=== PATIENT | female | born 1955 | race Caucasian/White ===

== ENCOUNTER → 2017-07-06 | Outpatient (CLI) | payer OTHER, BC ==
[~2017-07-06] MED LIST: ALBUAER2 INH; ASPEC325 PO; CLB200 PO; CLX20 PO; LISI-461 PO; LRT5 PO; PRCUNK PO; SIMV40TA2 PO; SNG10 PO; [UNRECOGNIZED DRUG - CODE] PO
--- NOTE | 2017-07-06 14:47 | DIAGNOSTIC IMAGING REPORT ---
R FOOT MIN 3 VIEWS ROUTINE HISTORY: 61 years-old Female R FOOT PAIN acute right foot pain without reported trauma COMPARISON: None available TECHNIQUE: 3 views of the right foot FINDINGS: Mild degenerative changes are seen within the first MTP joint and also within the hallux sesamoid articulations with the first metatarsal head. Type I accessory navicular. No acute fracture or subluxation. Mild spurring along the plantar aspect of the calcaneus. Mild dorsal spurring of the midfoot. No radiopaque foreign body. Mild cortical thickening of the distal fibula suggests remote fracture. IMPRESSION: 1. Mild degenerative changes about acute fracture or subluxation. 2. Suggested remote fracture of the distal fibula. The above report was generated using voice recognition software. It may contain grammatical, syntax or spelling errors. Electronically signed by: Theodore Hernandez M.D. 07/06/2017 2:46 PM Dictated Date/Time: 07/06/2017 2:44 PM
== END | disposition home or self-care (01) ==
LOC: C.RAD1850 14:25
PROVIDERS: ATTEND Nurse Practitioner Adult Health
DX: M79.671 Pain in right foot (principal)

== ENCOUNTER → 2017-09-23 | Outpatient (CLI) | payer OTHER ==
[2017-09-23 13:16] LABS: ALT/SGPT 30 U/L (12-78); BLOOD UREA NITROGEN 16 mg/dl (7-18); CARBON DIOXIDE 27 mmol/L (21-32); CREATININE 0.77 mg/dl (0.60-1.20); GLUCOSE 125 mg/dl (70-99); POTASSIUM 3.9 mmol/L (3.5-5.1); SODIUM 140 mmol/L (136-145)
[2017-09-23 13:27] LABS: CHOLESTEROL 140 mg/dl (0-200); LDL CHOLESTEROL CALCULATED 65 mg/dl
== END | disposition home or self-care (01) ==
LOC: C.LABMFLN 07:08
PROVIDERS: ATTEND Family Medicine
DX: E78.5 Hyperlipidemia, unspecified (principal); I10 Essential (primary) hypertension; E03.9 Hypothyroidism, unspecified

== ENCOUNTER → 2017-09-28 | Outpatient (CLI) | payer OTHER ==
--- NOTE | 2017-09-28 10:09 | DIAGNOSTIC IMAGING REPORT ---
CAROTID ARTERY ULTRASOUND CLINICAL HISTORY: Asymptomatic carotid artery narrowing without infarction. COMPARISON STUDY: None. TECHNIQUE: Real-time, grayscale, and color Doppler sonography of the carotid and vertebral arteries was performed. Images were viewed in the transverse and longitudinal planes. FINDINGS: There is mild atherosclerotic plaque. Velocity measurements are listed below. COMMON CAROTID PEAK SYSTOLIC VELOCITY (CM/S): RIGHT 94 LEFT 117 ICA PEAK SYSTOLIC VELOCITY (CM/S): RIGHT 83 LEFT 89 Systolic ratios between the internal to common carotid arteries are normal. Antegrade flow is seen in the vertebral arteries. The external carotid arteries are patent. Blood pressure in the right arm measured 153/69. Blood pressure in the left arm measured 147/64. IMPRESSION: No evidence of a hemodynamically significant stenosis. Electronically signed by: Cali Dumont M.D. 09/28/2017 10:08 AM Dictated Date/Time: 09/28/2017 10:06 AM
== END | disposition home or self-care (01) ==
LOC: C.ULTR 09:33
PROVIDERS: ATTEND Family Medicine
DX: I65.29 Occlusion and stenosis of unspecified carotid artery (principal)

== ENCOUNTER 2020-01-12 05:37 | Inpatient (IN) ==
--- NOTE | 2019-10-11 13:27 | Anesthesiology Consultation ---
Date of Service October 11, 2019 Assessment & Plan (1) Encounter for pre-operative examination: Chart Review Chart Review: Pending: Refer to Additional Notes / Consult section (PCP clearance ) and Patient NOT seen in Pre Admission Testing - Check BSG AM DOS Awaiting surgeon ordered PCP clearance Pt was a rescheduled surgery History Surgery Operation Date: 11/29/19 10:15 Proposed Procedures p Total Hip Arthroplasty Uncemt Anterior - Neville Anderson, Height/Weight Height: 5 ft 6 in Weight: 70 kg Allergies Allergy/AdvReac Type Severity Reaction Status Date / Time sertraline Allergy Unknown Hives Verified 10/11/19 14:39 Corticosteroids AdvReac Mild STEROID Verified 10/11/19 14:39 (Glucocorticoids) INJECTIONS-NAUSEA,FLUSHING,HIVES Medications Home Medications Medication Instructions Recorded Confirmed Last Taken terbinafine HCl 250 mg tablet 250 mg PO DAILY #30 tab 04/06/19 10/11/19 Unknown fluticasone propionate 45 2 puffs INH BID #12 gm 04/19/19 10/11/19 Unknown mcg-salmeterol 21 mcg/actuation HFA inhaler nitrofurantoin 100 mg PO BID #14 cap 04/19/19 10/11/19 Unknown monohydrate/macrocrystals 100 mg capsule levetiracetam 250 mg tablet 250 mg PO BID #180 tab 05/02/19 10/11/19 Unknown levothyroxine 50 mcg tablet See Rx Instructions .ROUTE 05/10/19 10/11/19 Unknown .COMPLEX #30 tablet zolpidem 10 mg tablet 10 mg PO HS PRN #30 tab 07/25/19 10/11/19 Unknown amoxicillin 2,000 mg PO DAILY PRN 09/23/19 10/11/19 Unknown aspirin 81 mg PO QAM 09/23/19 10/11/19 Unknown celecoxib [Celebrex] 50 mg PO QAM 09/23/19 10/11/19 Unknown duloxetine 30 mg PO QPM 09/23/19 10/11/19 Unknown losartan 100 mg PO QAM 09/23/19 10/11/19 Unknown metformin 500 mg PO QAM 09/23/19 10/11/19 Unknown montelukast 10 mg PO QAM 09/23/19 10/11/19 Unknown multivitamin [Daily Multi-Vitamin] 1 tab PO QAM 09/23/19 10/11/19 Unknown cyclobenzaprine 10 mg PO HS 09/27/19 10/11/19 Unknown simvastatin 40 mg PO QPM 09/27/19 10/11/19 Unknown hydrocodone 5 mg-acetaminophen 325 1 tab PO BID PRN #60 tab 10/05/19 10/11/19 Unknown mg tablet albuterol sulfate 90 mcg/actuation See Rx Instructions INH Q6H PRN 10/11/19 10/11/19 Unknown aerosol inhaler #18 gm prednisone 10 mg tablet 10 mg PO DAILY #20 tab 10/11/19 10/11/19 Unknown Past Medical History Medical History Anxiety Asthma Only using BID inhaler as PRN Degenerative disc disease Depression Hearing deficit Hereditary spherocytosis s/p splenectomy (+brigid and appy) History of seizure 03/2016. Single episode, felt 2/2 dehydration. History of shingles Hyperlipidemia Hypertension Hypothyroid Osteoarthritis Prediabetes Sleep apnea Not currently using CPAP Past Family History Family History Sister Family history of diabetes mellitus Past Surgical History Surgical History History of colonoscopy History of tonsillectomy and adenoidectomy History of total right hip replacement Hx of splenectomy ALSO - BRIGID AND APPY AT SAME TIME DUE TO HEREDITARY SPHEROCYTOSIS Hx of tubal ligation Social History Smoking Status: Never smoker Hx Alcohol Use: Yes Alcohol type: wine alcohol intake frequency: a few times a month Hx Substance Use: No Testing Laboratory Results Laboratory Tests 09/28/19 09/28/19 09/28/19 11:17 11:17 11:17 WBC 8.99 Hgb 13.2 Hct 39.5 Plt Count 453 H PT 11.1 INR 1.1 APTT 29.6 Sodium 139 Potassium 4.0 Chloride 106 Carbon Dioxide 28 BUN 24 H Creatinine 0.90 Glucose 121 H Hemoglobin A1c 09/28/19 11:17 WBC Hgb Hct Plt Count PT INR APTT Sodium Potassium Chloride Carbon Dioxide BUN Creatinine Glucose Hemoglobin A1c 5.9 H Electrocardiogram Date: 09/28/19 Findings: + NSR @ (68bpm) Cannot rule out anterior infarct (cited on or before 06/20/10). Compared to EKG of 06/20/10, aberrant conduction is no longer present. Otherwise no significant change. (at PAT appt on 09/28/19 pt had good functional status at Class II Metabolic Activity without symptoms( Chest X-Ray Date: 09/28/19 Findings: + cardiomegaly
--- NOTE | 2020-01-08 11:23 | History & Physical Report ---
Date of Service January 12, 2020 Assessment & Plan (1) Degenerative joint disease of left hip: I have indicated the patient for left anterior total hip replacement. The risks, benefits and complications of surgery were explained to the patient which include but not limited to infection, acute blood loss, DVT/PE, injury to nerves, vessels, bone, soft tissue, arthrofibrosis, chronic pain, failure of the prosthesis, hip dislocation, leg length discrepancy, need for additional surgery, cardiac and pulmonary events and . The patient wished to proceed with surgery and informed consent was obtained at this time. We will plan for ASA BID post-operatively for DVT prophylaxis. Upon discharge the patient will be discharged home with home health services. Appropriate clearances by PCP were obtained. History of Present Illness Chief Complaint: Left hip pain/djd Primary Care Provider: Nba Sheldon MD The patient is a 64 year old female who presents with complaints of severe left hip pain and DJD. The patient has failed outpatient conservative treatments to this point which included NSAIDs, PT, home exercise/walking program. Patient unable to have corticosteroid injection secondary to allergy. The patient's pain and limited function have progressed to the point where they severely hinder their activities of daily living and they no longer tolerate exercise programs. They are requesting to proceed with total hip replacement surgery. Allergies Allergy/AdvReac Type Severity Reaction Status Date / Time sertraline Allergy Unknown Hives Verified 01/12/20 05:47 Corticosteroids AdvReac Mild STEROID Verified 01/12/20 05:47 (Glucocorticoids) INJECTIONS-NAUSEA,FLUSHING,HIVES Home Medications Home Medications Medication Instructions Recorded Confirmed Type levetiracetam 250 mg tablet 250 mg PO BID #180 tab 05/02/19 01/12/20 Rx amoxicillin 2,000 mg PO DAILY PRN 09/23/19 01/12/20 History aspirin 81 mg PO QAM 09/23/19 01/12/20 History celecoxib [Celebrex] 200 mg PO BID 09/23/19 01/12/20 History duloxetine 30 mg PO QPM 09/23/19 01/12/20 History metformin 500 mg PO QAM 09/23/19 01/12/20 History multivitamin [Daily Multi-Vitamin] 2 tab PO QAM 09/23/19 01/12/20 History cyclobenzaprine 10 mg PO HS PRN 09/27/19 01/12/20 History simvastatin 40 mg PO QPM 09/27/19 01/12/20 History albuterol sulfate 90 mcg/actuation See Rx Instructions INH Q6H PRN 10/31/1912/19 Rx aerosol inhaler #18 gm levothyroxine 50 mcg tablet See Rx Instructions .ROUTE 11/09/19 01/12/20 Rx .COMPLEX #30 tablet montelukast 10 mg tablet 10 mg PO QAM #90 tab 12/13/19 01/12/20 Rx zolpidem 10 mg tablet 10 mg PO HS PRN #30 tab 12/21/19 01/12/20 Rx hydrocodone 5 mg-acetaminophen 325 1 tab PO BID PRN #60 tab 12/23/19 01/12/20 Rx mg tablet losartan 100 mg PO QAM 01/10/20 01/12/20 History fluticasone propion-salmeterol 2 puffs INH BID PRN 01/12/20 01/10/20 History [Advair HFA] Past Med/Surg History Medical History Anxiety Asthma Only using BID inhaler as PRN Degenerative disc disease Depression Hearing deficit Hereditary spherocytosis s/p splenectomy (+brigid and appy) History of seizure 03/2016. Single episode, felt 2/2 dehydration. History of shingles Hyperlipidemia Hypertension Hypothyroid Osteoarthritis Prediabetes Sleep apnea Not currently using CPAP Surgical History History of colonoscopy History of tonsillectomy and adenoidectomy History of total right hip replacement Hx of splenectomy ALSO - BRIGID AND APPY AT SAME TIME DUE TO HEREDITARY SPHEROCYTOSIS Hx of tubal ligation Family History Sister Family history of diabetes mellitus Social History Preferred Language: Croatian Communication Ability: Effective [employer] Officer Required: No Beliefs That Will Affect Care: None Current Living Situation: Spouse Other Information That Helps Us Care for You: No Feels Safe at Home: Yes Safety Concerns: Feels Safe At This Time Smoking Status: Never smoker Do You Dip or Chew Tobacco: No ; Second Hand Exposure: Yes (MOTHER SMOKED) ; Hx Alcohol Use: Yes Alcohol type: wine Hx Substance Use: No Review of Systems Review of Systems: All systems reviewed & are unremarkable except as noted in HPI & below Constitutional: as per Subjective / HPI Physical Exam Physical Exam: LLE NVSI +EHL/FHL/TA/GS SILT grossly, +2 DP pulse, compartments soft NT, dressing cdi. Constitutional: WD/WN, vitals as above Results & Data Results & Data ([place]) Diagnostic Findings Multiple views of the hip demonstrates severe DJD with complete loss of the joint space. +osteophytes, +sclerosis, +subchondral cysts.
[2020-01-12] MEDS ORDERED: ACETAMINOPHEN 500 MG TAB PO SCH (06:00)
[2020-01-12] MEDS ORDERED: ROPIVACAINE 0.5% HCL/PF 150 MG, BUPIVACAINE 0.5% MPF 30 ML, EPINEPHrine 30MG/30ML (OR U... INSTIL SCH (06:00)
[2020-01-12] MEDS ORDERED: dexAMETHasone 4 MG TAB PO SCH (06:00)
[2020-01-12] MEDS ORDERED: FAMOTIDINE 20 MG TAB PO SCH (06:00)
[2020-01-12] MEDS ORDERED: LR 500ML BOLUS, THEN 15ML/HR IV SCH (06:00)
[2020-01-12] MEDS ORDERED: GABAPENTIN 300 MG CAP PO SCH (06:00)
[2020-01-12] MEDS ORDERED: METOCLOPRAMIDE HCL 10 MG TABLET PO SCH (06:00)
[2020-01-12] MEDS ORDERED: CeleBREX 200 MG CAP PO SCH (06:00)
[2020-01-12] MEDS ORDERED: CEFAZOLIN 1000MG 1,000 MG/7.5 ML SYR IV SCH (06:00)
[2020-01-12] MEDS ORDERED: TRANEXAMIC ACID / 0.7% NACL 1,000 MG/100 ML BAG IV SCH ×2 (06:00)
[2020-01-12] MEDS ORDERED: BUPIVACAINE 0.5 % 5 MG/1 ML PF 10ML VIAL ONE (06:22)
[2020-01-12] MEDS ORDERED: ORTHO JOINT ANESTHETIC ONE (07:04)
[2020-01-12] MEDS ORDERED: BACITRACIN INJ 50,000 UNIT VIAL ONE (07:04)
[2020-01-12] MEDS ORDERED: LABETALOL HCL IV 5 MG/ML 20ML IV PRN (07:10)
[2020-01-12] MEDS ORDERED: MIDAZOLAM HCL 1 MG/ML 2ML VIAL ONE ×2 (07:10→07:23)
[2020-01-12] MEDS ORDERED: fentaNYL citrate 100 MCG/2 ML VIAL IV PRN (07:10)
[2020-01-12] MEDS ORDERED: ATROPINE SULFATE 0.1 MG/ML 10ML SYR IV PRN (07:10)
[2020-01-12] MEDS ORDERED: ePHEDrine sulfate 50 MG/ML AMP IV PRN (07:10)
[2020-01-12] MEDS ORDERED: PROPOFOL IV EMULSION 10 MG/ML 20 ML VIAL IV ONE ×2 (07:10→08:53)
[2020-01-12] MEDS ORDERED: PHENYLEPHRINE 100MCG/ML 5ML SYR IV PRN (07:10)
[2020-01-12] MEDS ORDERED: HYDROmorphone INJ 1 MG/ML SYRINGE IV PRN (07:10)
[2020-01-12] MEDS ORDERED: ONDANSETRON INJ 2 MG/ML 2 ML VIAL IV PRN ×2 (07:10→10:28)
[2020-01-12] MEDS ORDERED: LIDOCAINE HCL 2% 2 ML VIAL/AMP(20MG/ML) INFIL ONE (07:10)
--- NOTE | 2020-01-12 07:14 | History & Physical Bridge Note ---
Date of Service January 12, 2020 History & Physical Bridge Note I have examined the patient, reviewed the History & Physical and in the interval since the performance of the History & Physical I have noted the following changes of clinical significance: no changes noted
[2020-01-12] MEDS ORDERED: ONDANSETRON INJ 2 MG/ML 2 ML VIAL ONE (07:46)
--- NOTE | 2020-01-12 09:14 | Post Operative Brief Note ---
Immediate Post Op Note v1 Date of Surgery January 12, 2020 Pre & Post Diagnosis Operation Date: 11/29/19 09:45 <No data on this case meets the specified criteria> Operation Date: 01/12/20 07:30 Pre-Op Diagnosis: Left Hip Osteoarthritis Post-Op Diagnosis: Left Hip Osteoarthritis I identified the patient and participated in the time-out.: Yes Procedure Operation Date: 11/29/19 09:45 <No data on this case meets the specified criteria> Operation Date: 01/12/20 07:30 Actual Procedures p Left Anterior Total Hip Arthroplasty(Left) - Neville Anderson DO Surgeon Neville Anderson DO Wool Puller Aime lopez Estimated Blood Loss 185 Findings Consistent with Post-Op Diagnosis Fluids 1200 cc LR Specimens Femoral head Anesthesia Type Spinal MAC Complications none Disposition Disposition: Recovery Room Overlapping Procedure I was present for: the critical portions of procedure. I was immediately available: during the entire case. Back up surgeon: was not required during procedure.
--- NOTE | 2020-01-12 09:16 | Operative Report ---
Post Operative Report Pre & Post Diagnosis Operation Date: 11/29/19 09:45 <No data on this case meets the specified criteria> Operation Date: 01/12/20 07:30 Pre-Op Diagnosis: Left Hip Osteoarthritis Post-Op Diagnosis: Left Hip Osteoarthritis I identified the patient and participated in the time-out.: Yes Procedure Operation Date: 11/29/19 09:45 <No data on this case meets the specified criteria> Operation Date: 01/12/20 07:30 Actual Procedures p Left Anterior Total Hip Arthroplasty(Left) - Neville Anderson DO Surgeon Neville Anderson, Laborer [employer] Aime lopez Estimated Blood Loss 185 Findings Consistent with Post-Op Diagnosis Fluids 1200 cc LR Specimens Femoral head Anesthesia Type Spinal MAC Complications none Disposition Disposition: Recovery Room Indications The patient is a 58-year-old female who presents with severe progressive left hip DJD who has failed outpatient conservative treatments. I indicated the pa tient for a anterior total hip replacement and the risks and benefits were explained in detail which include but not limited to infection, bleeding, blood clot, damage to surrounding bone, nerves, vessels, soft tissue, hip dislocation, failure of the prosthesis, leg length discrepancy, need for additional surgery and . The patient agreed to proceed with replacement of the hip and informed consent was obtained. Appropriate clearances were obtained. Description of Procedure COMPONENTS USED: [employer] hip system: Acetabulum size 50, femur size 3 high offset, femoral head 32+0, liner 5032, acetabular screw 25 mm x 1. DESCRIPTION OF PROCEDURE: Following satisfactory spinal anesthesia, the patient was placed supine on the OR table. The right leg was placed in the well leg contreras and the left leg in the traction device. The left leg was prepared with ChloraPrep and draped sterilely. A surgical timeout was performed, patient identified and site mariajose verified. Appropriate antibiotics were given. A standard anterior approach in the interval between the sartorius and tensor muscles was performed. Dissection was carried down through subcutaneous tissues. Electrocautery was utilized for hemostasis. Circumflex femoral vessels were identified, tied and ligated. The anterior capsular fat pad was removed and the capsulotomy was performed revealing the arthritic femoral neck and head. A femoral neck cut was made with reciprocating saw and the bone fragments removed. The acetabular self-retraining retractor was placed. Acetabular reaming was completed under fluoroscopic guidance, a 50 shell was impacted into an anatomic position and secured with a dome screw. Local anesthetic was placed and following irrigation, the polyethylene liner was placed. The femur was placed into position of external rotation, extension and adduction. Femoral canal was prepared up to the size 3 high offset. Trial reduction with a 32+0 neck length head showed good soft tissue tension, leg lengths restored, and good fit and fill of the proximal canal using fluoroscopic landmarks. The hip was dislocated. The trial component was removed. The final implant was placed. The hip was irrigated with sterile saline solution and reduced. A Betadine soak was performed. After 3 minutes, the hip was once more irrigated with copious sterile saline solution with bacitracin. Cielo-incisional soft tissue was injected utilizing [place] [employer] which includes a combination of Ropivicaine 0.5% 150mg, Bupivicaine 0.5%/Epinephrine 1:200,000 30ml, Toradol 30mg, Dexamethasone 4mg, Ketamine 10mg, Clonidine 100mcg and NSS 30ml solution. The capsule was then closed with 1-0 Vicryl interrupted figure of eight sutures. The fascia was closed with a running suture of #1 Vicryl, the subcutaneous tissues with 2-0 Vicryl and the skin with a running subcuticular stitch of 3-0 V-Loc. Dermabond prineo and a dry dressing were applied. The patient tolerated the procedure well and was transported to PACU in stable condition. Due to the complex nature of the procedure, the entire surgery was performed with the operational assistance of Aime lopez PA-C. The editorial assistant, under direct supervision, was involved in the actual performance of all aspects of the surgical procedure including patient positioning, hemostasis, tissue retraction, instrument management and wound closure. I attest to the content of the Intraoperative Record and any orders documented therein. Any exceptions are noted below.
--- NOTE | 2020-01-12 10:08 | XRay Report ---
SINGLE VIEW PELVIS; SINGLE VIEW LEFT HIP CLINICAL HISTORY: Postoperative examination. FINDINGS: An AP portable view of the hips and pelvis with a crosstable lateral portable view of the l eft hip are compared to study dated 11/18/2010. A bipolar left hip arthroplasty is in near-anatomic ali gnment. A single cortical lag screw transfixes the acetabular cup. No acute fracture is identified. T here are expected postoperative changes overlying the left hip including subcutaneous gas and soft t issue swelling. A right hip arthroplasty is also in place. IMPRESSION: Expected postoperative findings status post left hip arthroplasty. No acute fracture is s een. ACT 112: Negative or not required by law. Electronically signed by: Ludwin Calvillo M.D. 01/12/2020 10:06 AM
--- NOTE | 2020-01-12 10:09 | Anesthesiology Progress Note ---
Date of Service January 12, 2020 Anesthesia Post Procedure Vital Signs Vital Signs: Temp Pulse Pulse Resp BP BP Pulse Ox 01/12/20 10:05 36.4 C L 67 16 131/64 98 01/12/20 09:55 68 16 134/65 98 01/12/20 09:45 65 16 128/57 L 98 01/12/20 09:36 36.2 C L 67 16 131/71 95 01/12/20 06:55 78 20 139/61 98 01/12/20 05:57 37.1 C 88 18 154/88 H 95 Transfer of Care Handoff Completed per policy Notes Mental Status: alert / awake / arousable Patient Amnestic to Procedure: Yes Nausea / Vomiting: adequately controlled Pain: adequately controlled Airway Patency, RR, SpO2: stable & adequate BP & HR: stable & adequate Hydration State: stable & adequate Neuraxial Anesthesia: was administered and sensory block is resolving Anesthetic Complications: no major complications apparent and Pt Satisfied with anesthetic care
--- NOTE | 2020-01-12 10:15 | Orthopedic Progress Note ---
Date of Service January 12, 2020 Assessment & Plan (1) Degenerative joint disease of left hip: Status post left anterior total hip arthroplasty Ancef x24 DVT prophylaxis: SCDs, teds, 81 mg ASA twice daily Weight-bear as tolerates left lower extremity PT/OT Postoperative x-ray demonstrates a well aligned well fixed total hip prosthesis without evidence of fracture or dislocation A.m. lab DC planning Subjective Post Operative Progress Note Patient seen sitting up in bed, comfortable, denies complaints, pain well controlled, no acute issues. Review of Systems Review of Systems: All systems reviewed & are unremarkable except as noted in HPI & below Constitutional: as per Subjective / HPI Physical Exam Physical Exam: LLE NVSI +EHL/FHL/TA/GS SILT grossly, +2 DP pulse, compartments soft NT, dressing cdi. Constitutional: WD/WN, vitals as above Results & Data ([facility]) Vital Signs (Past 12 Hours) Vital Signs Temp Pulse Pulse Resp BP BP Pulse Ox 01/12/20 10:05 36.4 C L 67 16 131/64 98 01/12/20 09:55 68 16 134/65 98 01/12/20 09:45 65 16 128/57 L 98 01/12/20 09:36 36.2 C L 67 16 131/71 95 01/12/20 06:55 78 20 139/61 98 01/12/20 05:57 37.1 C 88 18 154/88 H 95
[2020-01-12] MEDS ORDERED: NALOXONE HCL 0.4 MG/1 ML VIAL/CARP IV PRN (10:28)
[2020-01-12] MEDS ORDERED: ALBUTEROL HFA 8 GM INHALER INH PRN (10:28)
[2020-01-12] MEDS ORDERED: MAGNESIUM HYDROXIDE SUSP 30 ML UDC PO PRN (10:28)
[2020-01-12] MEDS ORDERED: bisacodyL 10 MG SUPP PR PRN (10:28)
[2020-01-12] MEDS ORDERED: METOCLOPRAMIDE HCL INJ 5 MG/ML 2 ML VIAL IV PRN (10:28)
[2020-01-12] MEDS ORDERED: HYDROmorphone INJ 0.5 MG/0.5 ML SYR IV PRN (10:28)
[2020-01-12] MEDS: SODIUM CHLORIDE 0.9% 1000ML 1,000 ML IV SCH ×2 (10:37→19:39)
[2020-01-12] MEDS ORDERED: FLUTICASONE/VILANTEROL 100/25MCG 14 PUFFS/INHALER INH PRN (10:55)
[2020-01-12] MEDS ORDERED: PHARMACY GLYCEMIC MGMT CONSULT PRN (10:57)
[2020-01-12] MEDS ORDERED: GLUCOSE 10 TABS/TUBE PO PRN (11:15)
[2020-01-12] MEDS ORDERED: DEXTROSE 50% 50 ML SYRINGE IV PRN (11:15)
[2020-01-12] MEDS ORDERED: GLUCAGON FOR INJ 1 MG VIAL IM PRN (11:15)
[2020-01-12] MEDS ORDERED: CARBOHYDRATES FOR HYPOGLYCEMIA PO PRN (11:15)
[2020-01-12] MEDS ORDERED: GLUCOSE 40% GEL 15 GM TUBE PO PRN (11:15)
--- NOTE | 2020-01-12 11:15 | Pharmacy Report ---
Glycemic Control Consultation - Date of Service January 12, 2020 - Scope Scope: Glycemic Pharmacist consulted for glycemic control and to write orders per [facility] inpatient glycemic control protocol. - Objective Weight: 71.7 kg Accuchecks BSG (last 24hrs): 01/12/20 06:15 POC Glucose 127 H - Recent Pertinent Medications Outpatient Anti-diabetic Regimen: * Metformin 500 mg PO QAM * A1c = 6.2% from 12/29/19 Risk Factors for Insulin Resistance: * Steroids: Dexamethasone 8 mg PO x 1 pre-op * Recent Surgery: POD #0 s/p L DERIK * Diet: T2DM - Assessment & Plan Assessment & Plan: ASSESSMENT: * 64 yo F who is POD #0 s/p L DERIK. Pharmacy consulted for glycemic management. * PMHx significant for pre-diabetes on once daily metformin. A1c shows good outpatient control. * Pre-op BSG was 127 mg/dL * Post-op BSG was...... will start home metformin dose tomorrow morning as patient has no contraindications. Starting Novolog with CF/CR based on weight and stress of ~2. * Since patient received a pre-op dose of dexamethasone, will give a 0.2 unit/kg dose of NPH to account for steroid-induced hyperglycemia today. Patient is ordered a T2DM diet and steroids will mostly effect post-prandial BSGs. No further steroids ordered that I can see. PLAN FOR INPATIENT GLYCEMIC CONTROL: * Oral agents * Metformin 500 mg PO QAM - starting 01/12 * Basal insulin * NPH 15 units SQ x 1 * Bolus insulin * NovoLog per scale ACHS or Q6hrs while NPO * Goal Range: Low 110 mg/dL - High 140 mg/dL * Correction Factor: 30 mg/dL/unit * Nutritional / Prandial insulin per carb ratio of 1 unit per 10 grams CHO consumed * Please note that the plan above was derived based on current level of insulin resistance and hospital stress. These recommendations are appropriate for inpatient admission only. Plan of care upon discharge will need to be reassessed to avoid potential outpatient hypo/hyperglycemia. Thank you.
--- NOTE | 2020-01-12 11:19 | Fluoroscopy Report ---
FL hip LT 1V CLINICAL HISTORY: LT ANTERIOR TOTAL HIP COMPARISON STUDY: None. FLUOROSCOPY TIME: 33 seconds. FINDINGS: 3 fluoroscopic spot images demonstrate a left total arthroplasty. The hardware is intact. N o fracture or dislocation. Evidence for prior right total arthroplasty. IMPRESSION: Fluoroscopy provided for left total arthroplasty. ACT 112: Negative or not required by law. Electronically signed by: Kenneth Muhammad M.D. 01/12/2020 11:18 AM
[2020-01-12] MEDS ORDERED: NovoLIN-N (NPH) PER UNIT CHARGE SQ ONE (11:30)
[2020-01-12] MEDS: KETOROLAC TROMETHAMINE 15 MG/ML VIAL IV SCH ×3 (13:15→23:35)
[2020-01-12] MEDS: INSULIN ASPART 100 UNITS/ML 3 ML PEN SC SCH ×2 (13:17→21:56)
[2020-01-12] MEDS: ACETAMINOPHEN 500 MG TAB PO SCH ×2 (13:37→21:55)
[2020-01-12] MEDS ORDERED: INSULIN ASPART 100 UNITS/ML 3 ML PEN SC ONE ×2 (16:15→16:30)
[2020-01-12] MEDS: CEFAZOLIN 2000MG 2,000 MG/15 ML SYR IV SCH ×2 (16:45→23:35)
[2020-01-12] MEDS: DOCUSATE SODIUM 100 MG CAP PO SCH (19:41)
[2020-01-12] MEDS: levETIRAcetam 250 MG TAB PO SCH (19:43)
[2020-01-12] MEDS: OXYCODONE HCL IR 5 MG TAB (IMMEDIATE RELEASE) PO PRN (19:54)
[2020-01-12] MEDS ORDERED: SENNA 8.6 MG TAB PO SCH (21:00)
[2020-01-12] MEDS ORDERED: DULOXETINE HCL 30 MG CAP PO SCH (21:00)
[2020-01-12] MEDS ORDERED: SIMVASTATIN 40 MG TAB PO SCH (21:00)
[2020-01-13 05:35] LABS: Basophils # (auto) 0.01 K/uL (0-0.2); Hemoglobin 10.9 g/dL (12.0-16.0); Immature Granulocytes # (auto) 0.11 K/uL (0.00-0.02); Immature Granulocytes % (auto) 0.5 %; Lymphocytes # (auto) 2.25 K/uL (1.2-3.4); Lymphocytes % (auto) 10.3 %; Mean Corpuscular Hemoglobin 30.1 pg (25-34); Mean Corpuscular Volume 91.2 fL (80-100); Mean Platelet Volume 9.6 fL (7.4-10.4); Monocytes # (auto) 1.57 K/uL (0.11-0.59); Monocytes % (auto) 7.2 %; Neutrophils # (auto) 17.87 K/uL (1.4-6.5); Nucleated RBC # (auto) 0.04 K/uL (0-0); Nucleated RBC % (auto) 0.2 %; Platelet Count 408 K/uL (130-400); RDW Coefficient of Variation 13.4 % (11.5-14.5); RDW Standard Deviation 44.6 fL (36.4-46.3); Red Blood Count 3.62 M/uL (4.2-5.4); White Blood Count 21.81 K/uL (4.8-10.8)
[2020-01-13] MEDS: ACETAMINOPHEN 500 MG TAB PO SCH ×2 (05:42→13:01)
[2020-01-13] MEDS: KETOROLAC TROMETHAMINE 15 MG/ML VIAL IV SCH (05:42)
[2020-01-13 05:59] LABS: BUN Creatinine Ratio 27.8 (10-20); Calcium 8.7 mg/dl (8.5-10.1); Creatinine Clr Calc Pharmacy 68.5 ml/min; Est GFR (African American) 86.4; Est GFR (Non-African American) 74.6; Potassium 4.2 mmol/L (3.5-5.1)
[2020-01-13] MEDS ORDERED: LEVOTHYROXINE SODIUM 50 MCG TABLET PO SCH (06:30)
[2020-01-13] MEDS ORDERED: METFORMIN HCL 500 MG TAB PO SCH (07:30)
[2020-01-13] MEDS ORDERED: MULTIVITAMIN TAB PO SCH (09:00)
[2020-01-13] MEDS ORDERED: LOSARTAN POTASSIUM 50 MG TAB PO SCH (09:00)
[2020-01-13] MEDS ORDERED: MONTELUKAST SODIUM 10 MG TABLET PO SCH (09:00)
[2020-01-13] MEDS ORDERED: ASPIRIN 81 MG ECTAB PO SCH (09:00)
[2020-01-13] MEDS: INSULIN ASPART 100 UNITS/ML 3 ML PEN SC SCH ×2 (09:18→13:04)
[2020-01-13] MEDS: levETIRAcetam 250 MG TAB PO SCH (09:29)
[2020-01-13] MEDS: DOCUSATE SODIUM 100 MG CAP PO SCH (09:29)
--- NOTE | 2020-01-13 10:09 | Pharmacy Report ---
Pharmacy Glycemic Short Note 2 - Date of Service January 13, 2020 - Glycemic Short BSG Results (Last 24 hours): 01/12/20 01/12/20 01/12/20 12:29 16:15 21:47 Glucose POC Glucose 191 H 182 H 182 H 01/13/20 01/13/20 05:01 08:21 Glucose 190 H POC Glucose 195 H OUTPATIENT ANTIDIABETIC REGIMEN: * Metformin 500 mg PO QAM * A1c = 6.2% from 12/29/19 ASSESSMENT: 01/12: * POD #1. Patient received 33 units of insulin yesterday: * 15 units basal + 18 units bolus * BSGs ranged 127 - 191 mg/dL * Fasting BSG this AM was elevated at 195 mg/dL. Metformin will be started this AM. No further basal insulin will be given as BSGs should trend down as pre-op steroids are cleared from the body. * Will tighten Novolog parameters as steroids have their most profound effect on post-prandial BSGs 01/11: * 64 yo F who is POD #0 s/p L DERIK. Pharmacy consulted for glycemic management. * PMHx significant for pre-diabetes on once daily metformin. A1c shows good outpatient control. * Pre-op BSG was 127 mg/dL * Will start home metformin dose tomorrow morning as patient has no contraindications. Starting Novolog with CF/CR based on weight and stress of ~2. * Since patient received a pre-op dose of dexamethasone, will give a 0.2 unit/kg dose of NPH to account for steroid-induced hyperglycemia today. Patient is ordered a T2DM diet and steroids will mostly effect post-prandial BSGs. No further steroids ordered that I can see. PLAN FOR INPATIENT GLYCEMIC CONTROL: * Metformin 500 mg PO QAM * Bolus insulin - tightened * NovoLog per scale ACHS or Q6hrs while NPO * Goal Range: Low 110 mg/dL - High 140 mg/dL * Correction Factor: 25 mg/dL/unit * Nutritional / Prandial insulin per carb ratio of 1 unit per 8 grams CHO consumed PLAN FOR DISCHARGE: * A1c = 6.2%. Continue metformin monotherapy.
--- NOTE | 2020-01-13 10:38 | Anesthesiology Progress Note ---
Date of Service January 13, 2020 Anesthesia Post Procedure Vital Signs Vital Signs: Temp Pulse Pulse Pulse Resp BP BP 01/13/20 07:51 36.6 C 73 18 137/67 01/13/20 03:43 36.6 C 85 20 138/69 01/12/20 23:26 36.3 C L 74 16 126/68 01/12/20 19:46 36.5 C 76 18 139/67 01/12/20 15:02 36.3 C L 70 16 132/76 01/12/20 13:23 36.4 C L 65 18 131/59 L 01/12/20 12:23 36.3 C L 70 16 113/65 01/12/20 11:21 36.4 C L 69 16 104/60 01/12/20 10:51 36.4 C L 68 20 120/76 Pulse Ox 01/13/20 07:51 97 01/13/20 03:43 90 01/12/20 23:26 94 01/12/20 19:46 94 01/12/20 15:02 97 01/12/20 13:23 99 01/12/20 12:23 98 01/12/20 11:21 97 01/12/20 10:51 96 Pain Intensity Left Hip: Pain Intensity: 6 Notes Mental Status: alert / awake / arousable Patient Amnestic to Procedure: Yes Nausea / Vomiting: adequately controlled Pain: adequately controlled Airway Patency, RR, SpO2: stable & adequate BP & HR: stable & adequate Hydration State: stable & adequate Neuraxial Anesthesia: was administered and sensory block resolved Anesthetic Complications: no major complications apparent and Pt Satisfied with anesthetic care
--- NOTE | 2020-01-13 10:55 | Orthopedic Progress Note ---
Date of Service January 13, 2020 Assessment & Plan (1) Degenerative joint disease of left hip: Status post left anterior total hip arthroplasty POD#1 Ancef x24 DVT prophylaxis: SCDs, teds, 81 mg ASA twice daily Weight-bear as tolerates left lower extremity PT/OT Postoperative x-ray demonstrates a well aligned well fixed total hip prosthesis without evidence of fracture or dislocation A.m. lab - as above, hgb 10.9 DC planning - home with HH Admission and Anticipated Discharge Date Admission Date: January 12, 2020 Subjective Post Operative Progress Note Patient seen sitting up in bed, comfortable, denies complaints, pain well controlled, no acute issues. Denies F/C/N/V/SOB/CP. Review of Systems Review of Systems: All systems reviewed & are unremarkable except as noted in HPI & below Constitutional: as per Subjective / HPI Physical Exam Physical Exam: LLE NVSI +EHL/FHL/TA/GS SILT grossly, +2 DP pulse, compartments soft NT, dressing cdi. Constitutional: WD/WN, vitals as above Results & Data ([facility]) Vital Signs (Past 12 Hours) Vital Signs Temp Pulse Resp BP BP Pulse Ox 01/13/20 07:51 36.6 C 73 18 137/67 97 01/13/20 03:43 36.6 C 85 20 138/69 90 01/12/20 23:26 36.3 C L 74 16 126/68 94 Laboratory Results 01/13/20 01/13/20 01/13/20 Range/Units 08:21 05:01 05:01 WBC 21.81 H (4.8-10.8) K/uL RBC 3.62 L (4.2-5.4) M/uL Hgb 10.9 L (12.0-16.0) g/dL Hct 33.0 L (37-47) % MCV 91.2 (80-100) fL MCH 30.1 (25-34) pg MCHC 33.0 (32-36) g/dL RDW Std Deviation 44.6 (36.4-46.3) fL RDW Coeff of Bernie 13.4 (11.5-14.5) % Plt Count 408 H (130-400) K/uL MPV 9.6 (7.4-10.4) fL Immature Gran % (Auto) 0.5 % Neut % (Auto) 82.0 % Lymph % (Auto) 10.3 % Mchenry % (Auto) 7.2 % Eos % (Auto) 0.0 % Baso % (Auto) 0.0 % Neut # (Auto) 17.87 H (1.4-6.5) K/uL Lymph # (Auto) 2.25 (1.2-3.4) K/uL Mchenry # (Auto) 1.57 H (0.11-0.59) K/uL Eos # (Auto) 0.00 (0-0.5) K/uL Baso # (Auto) 0.01 (0-0.2) K/uL Immature Gran # (Auto) 0.11 H (0.00-0.02) K/uL Absolute Nucleated RBC 0.04 H (0-0) K/uL Nucleated RBC % (auto) 0.2 % Sodium 140 (136-145) mmol/L Potassium 4.2 (3.5-5.1) mmol/L Chloride 110 H (98-107) mmol/L Carbon Dioxide 25 (21-32) mmol/L Anion Gap 5.0 (3-11) BUN 23 H (7-18) mg/dl Creatinine 0.82 (0.6-1.2) mg/dl Est Cr Clr Drug Dosing 68.5 ml/min Est GFR ( Amer) 86.4 Est GFR (Non-Af Amer) 74.6 BUN/Creatinine Ratio 27.8 H (10-20) Glucose 190 H (70-99) mg/dl POC Glucose 195 H (70-99) mg/dl Calcium 8.7 (8.5-10.1) mg/dl 01/12/20 01/12/20 01/12/20 Range/Units 21:47 16:15 12:29 WBC (4.8-10.8) K/uL RBC (4.2-5.4) M/uL Hgb (12.0-16.0) g/dL Hct (37-47) % MCV (80-100) fL MCH (25-34) pg MCHC (32-36) g/dL RDW Std Deviation (36.4-46.3) fL RDW Coeff of Bernie (11.5-14.5) % Plt Count (130-400) K/uL MPV (7.4-10.4) fL Immature Gran % (Auto) % Neut % (Auto) % Lymph % (Auto) % Mchenry % (Auto) % Eos % (Auto) % Baso % (Auto) % Neut # (Auto) (1.4-6.5) K/uL Lymph # (Auto) (1.2-3.4) K/uL Mchenry # (Auto) (0.11-0.59) K/uL Eos # (Auto) (0-0.5) K/uL Baso # (Auto) (0-0.2) K/uL Immature Gran # (Auto) (0.00-0.02) K/uL Absolute Nucleated RBC (0-0) K/uL Nucleated RBC % (auto) % Sodium (136-145) mmol/L Potassium (3.5-5.1) mmol/L Chloride (98-107) mmol/L Carbon Dioxide (21-32) mmol/L Anion Gap (3-11) BUN (7-18) mg/dl Creatinine (0.6-1.2) mg/dl Est Cr Clr Drug Dosing ml/min Est GFR ( Amer) Est GFR (Non-Af Amer) BUN/Creatinine Ratio (10-20) Glucose (70-99) mg/dl POC Glucose 182 H 182 H 191 H (70-99) mg/dl Calcium (8.5-10.1) mg/dl
[2020-01-13] MEDS: OXYCODONE HCL IR 5 MG TAB (IMMEDIATE RELEASE) PO PRN (15:20)
[2020-01-13] MEDS ORDERED: CeleBREX 200 MG CAP PO SCH (21:00)
--- NOTE | 2020-01-14 15:20 | Discharge Summary ---
Date of Service January 13, 2020 Admission HPI Per Admitting Provider The patient is a 64 year old female who presents with complaints of severe left hip pain and DJD. The patient has failed outpatient conservative treatments to this point which included NSAIDs, PT, home exercise/walking program. Patient unable to have corticosteroid injection secondary to allergy. The patient's pain and limited function have progressed to the point where they severely hinder their activities of daily living and they no longer tolerate exercise programs. They are requesting to proceed with total hip replacement surgery. Principal Diagnosis Left anterior total hip replacement -Left hip djd Discharge Exam LLE NVSI +EHL/FHL/TA/GS SILT grossly, +2 DP pulse, compartments soft NT, dressing cdi. Constitutional WD/WN, vitals as above Discharge Data Allergies Allergy/AdvReac Type Severity Reaction Status Date / Time sertraline Allergy Unknown Hives Verified 01/12/20 05:47 Corticosteroids AdvReac Mild STEROID Verified 01/12/20 05:47 (Glucocorticoids) INJECTIONS-NAUSEA,FLUSHING,HIVES Consultations 01/13/20 08:00 Consult Case Management - Discharge Planning Routine Procedures Performed Operation Date: 11/29/19 09:45 <No data on this case meets the specified criteria> Operation Date: 01/12/20 07:30 Actual Procedures p Left Anterior Total Hip Arthroplasty(Left) - Neville Anderson DO Ordered Studies 01/12/20 07:30 FL fluoroscopy <1hr Routine FL hip LT 1V Routine Hospital Course (1) Degenerative joint disease of left hip: The patient is a 64 -year-old female who presents with long standing history of severe left hip DJD and failed outpatient conservative treatments. The patient's symptoms have progressed to the point where it has been difficult to perform even normal activities of daily living. I indicated the patient for a left anterior total hip arthroplasty, the risks, benefits and complications of the procedure include but not limited to infection, bleeding, damage to bone, nerves, vessels, surrounding soft tissue, may develop blood clots, loss of function, leg length discrepancy, dislocation, failure of the components, loosening of the components, the need for additional surgery and . The patient wished to proceed with surgery at this time and informed consent was obtained. Hospital Course: On 01/12/20 the patient was taken to the operating room, adequate anesthesia administered and underwent a left anterior total hip arthroplasty. The patient tolerated the procedure well and was taken to the PACU in stable condition. Post-operatively the patient was started on a DVT ppx medication and given appropriate IV antibiotics. Consults were placed to physical therapy, occupational therapy and case management. On POD#1, the patient did well overnight and their pain was well controlled. Labs were drawn and the Hgb was 10.9. The patient progressed well with PT. Dressings were changed at this time and the incision was clean, dry and intact. The patients hospital stay was relatively uneventful and they were deemed stable by the orthopedic team and consultants to be discharged home with HH on 01/13/20. Discharge Instructions: Upon discharge the patient may weight bear as tolerates through their operative extremity. They were instructed to keep the incision clean and dry at all times. The patient may shower but should not submerge the incision, avoid bathing, pools and hot tubes. The patient was given a script for pain medication and should take as instructed. The patient was given a script for DVT ppx 81mg ASA BID and should take as directed. The patient was instructed to not drive or travel for long distances until cleared to do so. If the patient develops any symptoms of fevers, chills, nausea, vomiting, increased redness, swelling, pain or drainage from the surgical site, they should notify the office and/or proceed to the nearest emergency room. The patient should follow up in 10-14 days after surgery for their routine post-operative follow-up appointment and should call the office to confirm the date and time. Status post left anterior total hip arthroplasty POD#1 Ancef x24 DVT prophylaxis: SCDs, teds, 81 mg ASA twice daily Weight-bear as tolerates left lower extremity PT/OT Postoperative x-ray demonstrates a well aligned well fixed total hip prosthesis without evidence of fracture or dislocation A.m. lab - as above, hgb 10.9 DC planning - home with Total Time Total Time Spent Total Time Spent (In Minutes): 30 Discharge Plan Discharge Items Patient Disposition: Home - Home Health Services Reason For Visit: LEFT HIP OSTEOARTHRITIS Discharge Diagnosis: Left anterior total hip arthroplasty Condition on Discharge: Good Activity: Per Instructions section Lifting: Wait until after follow-up appointment Bathing: Keep incision dry Bathing Comment: No bathing, pools or hot tubs. Sexual Activity: Wait until after follow-up appointment Exercise/Sports: Wait until after follow-up appointment Driving/Machine Use: No driving Weightbearing: Full weightbearing Non-emergency contact: Primary Care Provider and Surgeon Call non-emergency contact if: you have any medication questions, your symptoms worsen, your pain is not controlled, your pain is worsening, your pain is unusual for you, your pain is concerning for you, you have a fever, your temperature is above 101, your wound has increased redness, your wound has increased drainage and your wound pain has increased Follow-up/Referrals: Nba Sheldon MD [Primary Care Provider] - Diet: Regular Addtl Attending Provider Instructions: ACTIVITY RECOMMENDATIONS: SELF CARE INSTRUCTIONS AFTER TOTAL HIP REPLACEMENT : Direct Anterior Approach Until the incision and soft tissues around your hip have healed, there is a possibility that the hip prosthesis could dislocate. A. Hip flexion ( Up & Down out of chair or steps ) may be difficult. This is normal. B. Numbness in front of the thigh is also normal for a few weeks. C. Use hand rails when walking on stairs. D. Wear low heeled shoes with non-slip soles. E. Be sure that your floors are free of things that could trip you - throw rugs, electrical cords, small objects. Avoid wet and waxed floors, especially with crutches and canes. F. Try to walk several times a day with rest periods between. G. Continue with all the exercises taught to you in the hospital. Again, make walking a part of your daily routine. SPECIAL CARE INSTRUCTIONS: VERY IMPORTANT TO READ AND REVIEW A. You may still be at risk for phlebitis and blood clots. 1. Wear surgical stockings (JOSE hose) for 2 weeks after surgery to improve circulation and reduce swelling. 2. Take Aspirin 81mg twice daily for 4 weeks or as directed by your doctor. This is your blood thinner. 3. High risk patients may be prescribed a stronger blood thinner if necessary. 4. If you are on Coumadin normally, your family doctor/grinder operator automatic should monitor your blood work. Expect a phone call the day of or the day after bloodwork is drawn to adjust your dosage. B. You must take antibiotics before having dental work, bladder, bowel and other surgery. Your doctor will provide you with a permanent card to carry describing precautions. C. Call [facility] if you have a fever, redness or swelling around the incision, cloudy drainage from incision, or sudden increase in pain in your hip, not relieved by your regular pain medication. D. Please call the office at if you have any concerns or questions about your operation or recovery. * YOU MAY SHOWER, NO TUB BATHS UNTIL CLEARED BY YOUR DOCTOR. - Keep an extra close eye on the top portion of your incision. Be sure to keep clean & dry. * WEAR JOSE HOSE 20 HOURS PER DAY FOR 2 WEEKS. * YOU MAY PROGRESS FROM A WALKER, TO A CANE, TO INDEPENDENT AT YOUR OWN PACE. * MOST PATIENTS WILL HAVE HOME NURSING FOR THERAPY. IF YOU DECIDE TO DO OUTPATIENT PHYSICAL THERAPY, PLEASE SCHEDULE THIS 3 TIMES PER WEEK. * DERMABOND Prineo- This is a mesh tape dressing that is covered with glue. It should remain in place until the incision is properly healed, usually 10-14 d ays. This dressing is designed to naturally slough off. You may trim the excess mesh tape as it peels off. Incision may be briefly wet in a shower. Dry immediately by blotting with a clean, dry towel. Do not bath or swim until instructed by your doctor. Do not scratch, rub, or pick at the dressing. Do not apply any topical ointments or lotions until dressing is completely removed and/or instructed by your doctor. There may be a small piece of suture material at one end of your incision. Do not pull or trim this. If it is bothersome or catching on clothing, you may cover it with a band-aid. FOLLOW UP VISIT: If appointment is not already scheduled: Please call [facility] to make a follow-up appointment for 2 weeks after your surgery at . Pending Studies at Discharge: No Stand-Alone Forms: My [facility], Opioid Pain Management, Smoking Cessation Medications and DC Order Prescriptions: New celecoxib [Celebrex] 200 mg Capsule 200 mg PO BID PRN (Reason: pain/inflammation ) Qty: 28 RF: 0 aspirin 81 mg Tablet,Delayed Release (Dr/Ec) 81 mg PO BID Qty: 56 RF: 0 acetaminophen 500 mg Tablet 1,000 mg PO Q8 PRN (Reason: pain/fevers) Qty: 90 RF: 0 oxycodone 5 mg Tablet 5 mg PO Q6H MDD 4 PRN (Reason: pain) Qty: 30 RF: 0 sennosides [Senokot] 8.6 mg Tablet 17.2 mg PO HS PRN (Reason: constipation) Qty: 28 RF: 0 Continued levetiracetam 250 mg tablet 250 mg PO BID Qty: 180 RF: 3 albuterol sulfate [Ventolin HFA] 90 mcg/actuation HFA aerosol inhaler See Rx Instructions INH Q6H PRN (Reason: shortness of breath or wheezing) Qty: 18 RF: 6 levothyroxine 50 mcg tablet See Rx Instructions .ROUTE .COMPLEX Qty: 30 RF: 2 montelukast 10 mg tablet 10 mg PO QAM Qty: 90 RF: 1 zolpidem 10 mg tablet 10 mg PO HS PRN (Reason: insomnia) Qty: 30 RF: 2 multivitamin [Daily Multi-Vitamin] tablet 2 tab PO QAM RF: 0 metformin 500 mg tablet 500 mg PO QAM RF: 0 duloxetine 30 mg capsule,delayed release(DR/EC) 30 mg PO QPM RF: 0 cyclobenzaprine 10 mg tablet 10 mg PO HS PRN (Reason: Muscle Spasticity) RF: 0 simvastatin 40 mg tablet 40 mg PO QPM RF: 0 losartan 100 mg Tablet 100 mg PO QAM RF: 0 Advair HFA 45-21 mcg/actuation HFA aerosol inhaler 2 puffs INH BID PRN (Reason: Shortness Of Breath Or Wheezing) RF: 0 Discontinued hydrocodone-acetaminophen 5-325 mg tablet 1 tab PO BID PRN (Reason: pain) Qty: 60 RF: 0 amoxicillin 500 mg Capsule 2,000 mg PO DAILY PRN (Reason: PRE DENTAL) RF: 0 celecoxib [Celebrex] 50 mg Capsule 200 mg PO BID RF: 0 aspirin 81 mg tablet,delayed release (DR/EC) 81 mg PO QAM RF: 0 Discharge Orders: Discharge Order (Routine); Ordered 01/13/20 Ordered By: Neville Resendez/Other Patient Handouts: Preventing Deep Vein Thrombosis Admission Data Admit Date/Time: 01/12/20 09:40 Attending Provider: Neville Anderson Admit Provider: Neville Anderson Primary Care Provider: Nba Sheldon Other Interventions: Discharge Summary Assessment (RN) Last Done: 01/13/20 10:53 DC Date/Time DO NOT enter until pt leaves facility: 01/13/20 16:06
== END 2020-01-13 16:06 | disposition home health service (06) | DRG 470 ==
LOC: ASU 05:37 → 3E 09:40

== ENCOUNTER 2020-02-10 16:17 | Inpatient (IN) ==
[2020-02-10] MEDS ORDERED: SODIUM CHLORIDE 0.9% 1000ML 1,000 ML IV ONE ×2 (16:32→19:59)
[2020-02-10] MEDS ORDERED: FAMOTIDINE 20MG IV PUSH 20 MG/5 ML SYR IV STA (16:44)
[2020-02-10] MEDS ORDERED: ACETAMINOPHEN 1,000 MG/100 ML VIAL IV STA (16:44)
--- NOTE | 2020-02-10 16:50 | Emergency Department Note ---
Impression & Plan Sepsis, Acute UTI, Acute kidney insufficiency, Hypophosphatemia, Hypercalcemia ED Provider Note NAME: MARIZOL MARTINEZ AGE: 64 SEX: F ARRIVES VIA: Walk-In INFORMANT: Patient, ED PROVIDER(S): Felipe Tong MD CHIEF COMPLAINT: Dizziness, weakness PLAN: Disposition: Admit MEDICAL DECISION MAKING: The patient is a pleasant 64-year-old woman with a past medical history of asthma, hypertension who is status post left DERIK 1 month ago who presents emerged department with generalized weakness, dizziness and decreased appetite with associated shortness of breath, body aches, chills which has evolved over the past week. She reports lower chest upper abdominal pain that is worse with deep inspiration. She denies any history of PEs or DVTs. The patient is fatigued appearing but no acute distress, afebrile with a rate in the 100s and otherwise stable vital signs. She appears clinically dry. She has no focal neuro deficits. She has mild epigastric discomfort without discrete tenderness. She has a full range of motion of her hips bilaterally without difficulty. Her left DERIK incision site appears to be healing well without evidence of infection and no tenderness in this area. She is mild discomfort along the left posterior gluteal region without discrete tenderness. EKG without overt acute ischemia. Chest x-ray negative for acute process. WBC 21K neutrophil predominance and 0.14 bands. And platelets 685. H/H within normal limits. 91.6 consistent with the patient's clinically dry appearance. Calcium 10.7 also consistent with the patient's dehydration. Phosphorus 1.2 with repletion provided. Troponin negative/undetectable. LFTs unremarkable. CT of the chest negative for PE or pneumonia. CT the abdomen demonstrates fluid collection over the left trochanters with component of gas that is suspicious for abscess. Patient was treated empirically with vancomycin and Zosyn upon results of her CBC. Patient was reevaluated and did not have any significant tenderness in the region of this fluid collection. And her exam with full range of motion is not suggestive of infected joint. I did review the case with [facility] orthopedics on-call, Dr. Mendieta. Given the patient's sepsis agrees with broad-spectrum antibiotics and hospital medicine admission and they will evaluate the patient in the morning. Case was discussed with Dr. Mistry, [facility] [place], who will evaluate the patient for admission. Triage Nursing notes reviewed and agree them. Prior medical records reviewed Vital Signs: reviewed and remarkable for no significant abnormalities Differential diagnosis: Infection, dehydration, metabolic abnormality, hypo/hyperglycemia, electrolyte disturbance, anemia, hypoxia, cardiac sources, intracerebral event, toxicologic, neurologic, as well as other pathologies. ER treatment provided: See below. Diagnostics interpreted by me: ECG: Sinus rhythm with occasional PVCs, 90 bpm, ST and T wave abnormality, no overt ST elevation. QTc 437, QRS 100. Cardiac Monitoring: An order for continuous cardiac monitoring was placed and demonstrated sinus rhythm, 90 bpm, occasional PVCs Laboratory studies: See below Imaging studies: CT ANGIOGRAM OF THE CHEST; CT SCAN OF THE ABDOMEN AND PELVIS WITH IV CONTRAST CLINICAL HISTORY: Atypical chest pain. Fever. Generalized abdominal pain. COMPARISON STUDY: Chest x-ray dated 02/10/2020. Pelvic radiograph dated 01/12/2020. TECHNIQUE: Following the IV administration of 118 of Optiray 320, CT angiogram of the chest is performed from the upper abdomen to the thoracic inlet utilizing the pulmonary embolus protocol. Images are reviewed in the axial, sagittal, coronal planes. 3-D MIPS images are created and assessed. Subsequently, CT scan of the abdomen and pelvis was performed from the lung bases to the proximal femora. Images are reviewed in the axial, sagittal, and coronal planes. IV contrast was administered without complication. A dose lowering technique was utilized adhering to the principles of ALARA. CT DOSE: 683.43 mGy.cm FINDINGS: CHEST: Thyroid: Imaged portions of the thyroid gland are normal in size and attenuation. Thoracic aorta: There is mild atherosclerotic calcification of the thoracic aorta, which is normal in caliber and demonstrates standard 3-vessel arch anatomy. No dissection is seen. Pulmonary vasculature: The pulmonary trunk is normal in caliber. There are no filling defects identified in the main, lobar, or segmental pulmonary arteries to indicate pulmonary embolus. Heart: The heart is normal in size and configuration, and without pericardial effusion. Lungs and pleural spaces: There is no airspace consolidation or pleural effusion. Dependent atelectasis is noted at the lung bases. The trachea and central airways are clear. Mild diffuse peribronchial thickening is observed. Mediastinum: There is no mediastinal lymphadenopathy. Claudia: Clear. Axillae: There is no axillary lymphadenopathy. Bony thorax: The skeletal structures are osteopenic. Degenerative change is noted throughout the thoracic spine. No lytic or blastic lesions are identified. ABDOMEN AND PELVIS: Liver: The contrast-enhanced liver is normal in size, contour, and attenuation. There is mild intrahepatic or ductal dilatation. The hepatic veins and portal veins are patent. Gallbladder: Surgically absent. Spleen: The spleen is not identified and presumed surgically absent. Pancreas: Mildly atrophic and grossly unremarkable. Adrenal glands: Unremarkable. Kidneys: The contrast enhanced kidneys are normal in size and without hydronephrosis. The kidneys enhance symmetrically. Foci of parenchymal scarring are noted in the upper pole of the left kidney. A calyceal diverticulum is suspected. Abdominal vasculature: The abdominal aorta is normal in course and caliber noting mild atherosclerotic calcification. Bowel: There is no bowel obstruction. Focal narrowing is seen in the distal transverse colon on image #207. The appendix is well-visualized and normal. Peritoneum: There is no intraperitoneal free air or abdominal ascites. There is a small fat-containing umbilical hernia. Lymphadenopathy: None. Pelvic viscera: Evaluation of the pelvis is significantly degraded by streak artifact from bilateral hip arthroplasties. The bladder wall appears thickened and hyperemic. The endometrium appears thickened for age, measuring up to 7 mm. No adnexal lesion is identified. Skeletal structures: The skeletal structures are osteopenic. There is mild to moderate lumbosacral spondylosis. No lytic or blastic lesions are seen. Bilateral hip arthroplasties are in place. Soft tissue edema overlies the left hip. There is a gas and fluid containing collection identified in the left upper thigh anterior to the femoral trochanters. This is best seen on image #414 and measures at least 5.5 x 4 x 2.5 cm. IMPRESSION: 1. There is no evidence of pulmonary embolus in the main, lobar, or segmental pulmonary arteries. 2. There is no airspace consolidation or pleural effusion. 3. Mild diffuse peribronchial thickening suggests bronchitis/reactive airway disease. Clinical correlation will be required. 4. There is an approximately 5.5 x 4 x 2.5 cm peripherally enhancing gas and fluid containing fluid collection in the left upper thigh anterior to the trochanters of the left femur. This is atypical for expected postoperative change and concerning for developing abscess. Clinical correlation will be essential. 5. The bladder wall appears circumferential thickened and hyperemic. Correlate clinically and with urinalysis for evidence of cystitis. 6. The endometrium appears thickened for age. This is not well evaluated by CT. Nonemergent gynecology follow-up and pelvic ultrasound is recommended for further assessment. 7. There is focal narrowing identified in the distal transverse colon which likely resents underdistention. If not recently performed, follow-up with outpat ient colostomy is recommended for further assessment. 8. The spleen is not identified and presumed surgically absent. 9. Additional findings as above. Consultation(s): Dr. Mendieta, [facility] [place] orthopedics on-call. Case was discussed with Dr. Mistry, [facility] [place] hospitalist, who will evaluate the patient for admission. HPI: The patient is a pleasant 64-year-old woman with a past medical history of asthma, hypertension who is status post left DERIK 1 month ago who presents emerged department with generalized weakness, dizziness and decreased appetite with associated shortness of breath, body aches, chills which has evolved over the past week. She reports lower chest upper abdominal pain that is worse with deep inspiration. She denies any history of PEs or DVTs. She denies any urinary symptoms but admits that she has had UTIs in the past and did not notice it. She denies any diarrhea, cough or congestion. ROS: See above HPI for pertinent positives & negatives. A total of 10 systems reviewed and were otherwise negative. PAST MEDICAL HISTORY:See Below PAST SURGICAL HISTORY:See Below FAMILY HISTORY:See Below SOCIAL HISTORY:See Below HOME MEDICATIONS:See Below ALLERGIES:See Below VITALS:See Below PHYSICAL EXAMINATION: GENERAL: Awake, alert, fatigued-appearing, in no distress HENT: Normocephalic, atraumatic. Oropharynx with dry mucous membranes and otherwise unremarkable. EYES: Normal conjunctiva. Sclera non-icteric. NECK: Supple. No nuchal rigidity. FROM. No JVD. RESPIRATORY: Clear to auscultation. CARDIAC: Tachycardic rate, normal rhythm. Extremities warm and well perfused. Pulses equal. ABDOMEN: Soft, non-distended. Mild epigastric discomfort without discrete tenderness to palpation. No rebound or guarding. No masses. RECTAL: Deferred. MUSCULOSKELETAL: Chest examination reveals no tenderness. The back is symmetrical on inspection without obvious abnormality. There is no CVA tenderness to palpation. No joint edema. LOWER EXTREMITIES: Calves are equal size bilaterally and non-tender. No edema. No discoloration. Left proximal anterior incision site clean dry and intact. No tenderness to palpation in this area. Mild discomfort of the posterior left gluteal region without discrete tenderness. Full range of motion of the hips bilaterally without discomfort. NEURO: Normal sensorium. No sensory or motor deficits noted. 5/5 strength and SILT x 4 extremities. cerebellar function intact including [id number], alternating palms, [id number]. SKIN: No rash or jaundice noted. ED COURSE: Critical Care: I have personally spent greater than 85 minutes of critical care time in the direct management of this patient. This includes bedside care, interpretation of diagnostic studies, and testing, discussion with consultants, patient, and family members, and other required patient management activities. This 85 minutes is in excess of all separately billable procedures. Felipe Tong MD Past Med/Surg History Medical History Anxiety Asthma Only using BID inhaler as PRN Degenerative disc disease Depression Hearing deficit 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 Single episode, felt 2/2 dehydration.-NO ISSUES SINCE History of shingles Hyperlipidemia Hypertension Hypothyroid Osteoarthritis Prediabetes ORAL MED Sleep apnea Not currently using CPAP Surgical History History of colonoscopy History of tonsillectomy and adenoidectomy History of total right hip replacement Hx of splenectomy ALSO - TACOS AND APPY AT SAME TIME DUE TO HEREDITARY SPHEROCYTOSIS Hx of tubal ligation Family History Sister Family history of diabetes mellitus Social History Smoking Status: Never smoker Second Hand Exposure: Yes (MOTHER SMOKED); Hx Alcohol Use: Yes Alcohol type: wine Hx Substance Use: No Preferred Language: Mongolian Communication Ability: Effective [employer] Operator Required: No Beliefs That Will Affect Care: None marital status: Current Living Situation: Spouse Feels Safe at Home: Yes Allergies Allergies Allergy/AdvReac Type Severity Reaction Status Date / Time sertraline Allergy Unknown Hives Verified 02/10/20 21:17 Corticosteroids AdvReac Mild STEROID Verified 02/10/20 21:17 (Glucocorticoids) INJECTIONS-NAUSEA,FLUSHING,HIVES Home Meds Home Medications Medication Instructions Recorded Confirmed duloxetine 30 mg PO QPM 09/23/19 02/10/20 multivitamin [Daily Multi-Vitamin] 2 tab PO QAM 09/23/19 02/10/20 simvastatin 40 mg PO QPM 09/27/19 02/10/20 acetaminophen 1,000 mg PO Q8 PRN 02/10/20 02/10/20 albuterol sulfate [Ventolin HFA] 1 - 2 puff INH Q6H PRN 02/10/20 02/10/20 celecoxib [Celebrex] 200 mg PO BID PRN 02/10/20 02/10/20 dextran 70-hypromellose (PF) 1 drp OPHTHALMIC (EYE) DIRECTED 02/10/20 02/10/20 [Artificial Tears (PF)] PRN levothyroxine 50 mcg PO QAM 02/10/20 02/10/20 oxycodone 5 mg PO .Q4-6HRS PRN MDD 6 TABLETS 02/10/20 02/10/20 sennosides [Senokot] 17.2 mg PO HS 02/10/20 02/10/20 valsartan 160 mg PO QAM 02/10/20 02/10/20 zolpidem 10 mg PO HS PRN 02/10/20 02/10/20 Previous Rx's Medication Instructions Recorded levetiracetam 250 mg tablet 250 mg PO BID #180 tab 05/02/19 montelukast 10 mg tablet 10 mg PO QAM #90 tab 12/13/19 aspirin 81 mg PO BID #56 tab 01/12/20 metformin 500 mg tablet 500 mg PO QAM #90 tab 01/17/20 cyclobenzaprine 10 mg tablet 10 mg PO HS PRN #30 tab 02/09/20 Results & Data (ED) Vital Signs Vital Signs - 24 hr 02/10/20 16:19 02/10/20 17:03 02/10/20 17:41 Temperature 36.9 C Temperature Source Oral Pulse Rate 119 H 97 H Pulse Rate [Apical] Pulse Rate from SpO2 Sensor Pulse Rhythm Regular Regular Pulse Rhythm [Apical] Pulse Strength Normal Pulse Strength [Apical] Respiratory Rate 20 20 Respiratory Effort / Characteristics Non-Labored Spontaneous Respiratory Depth Normal Respiratory Pattern Regular Blood Pressure 110/65 Blood Pressure [Left Arm] Blood Pressure Mean 80 Blood Pressure Mean [Left Arm] Blood Pressure Position Sitting Blood Pressure Position [Left Arm] Pulse Oximetry 97 97 97 Oxygen Delivery Method Room Air Room Air Room Air Sepsis Recent Fever Within 48 Hours No Sepsis New/Unexplained Change in Mental Status No Sepsis Action Taken by Nursing No Action Required 02/10/20 18:08 02/10/20 18:30 02/10/20 19:07 Temperature Temperature Source Pulse Rate 86 83 Pulse Rate [Apical] 84 Pulse Rate from SpO2 Sensor 79 83 Pulse Rhythm Pulse Rhythm [Apical] Regular Pulse Strength Pulse Strength [Apical] Normal Respiratory Rate 24 11 L 18 Respiratory Effort / Characteristics Non-Labored Spontaneous Respiratory Depth Normal Respiratory Pattern Blood Pressure 128/82 149/50 H Blood Pressure [Left Arm] 128/72 Blood Pressure Mean 109 88 Blood Pressure Mean [Left Arm] 90 Blood Pressure Position Blood Pressure Position [Left Arm] Lying Pulse Oximetry 94 94 97 Oxygen Delivery Method Room Air Sepsis Recent Fever Within 48 Hours Sepsis New/Unexplained Change in Mental Status Sepsis Action Taken by Nursing 02/10/20 21:00 Temperature Temperature Source Pulse Rate Pulse Rate [Apical] 84 Pulse Rate from SpO2 Sensor Pulse Rhythm Pulse Rhythm [Apical] Regular Pulse Strength Pulse Strength [Apical] Normal Respiratory Rate 18 Respiratory Effort / Characteristics Non-Labored Spontaneous Respiratory Depth Normal Respiratory Pattern Regular Blood Pressure Blood Pressure [Left Arm] 107/72 Blood Pressure Mean Blood Pressure Mean [Left Arm] 83 Blood Pressure Position Blood Pressure Position [Left Arm] Lying Pulse Oximetry 96 Oxygen Delivery Method Room Air Sepsis Recent Fever Within 48 Hours Sepsis New/Unexplained Change in Mental Status Sepsis Action Taken by Nursing Laboratory Data Attestation: I reviewed the patient's lab results. Result diagrams: 02/10/20 17:33 02/10/20 17:33 Lab Results 02/10/20 02/10/20 02/10/20 Range/Units 17:33 17:33 17:33 WBC 21.04 H (4.8-10.8) K/uL RBC 4.42 (4.2-5.4) M/uL Hgb 13.4 (12.0-16.0) g/dL Hct 38.9 (37-47) % MCV 88.0 (80-100) fL MCH 30.3 (25-34) pg MCHC 34.4 (32-36) g/dL RDW Std Deviation 42.5 (36.4-46.3) fL RDW Coeff of Bernie 13.3 (11.5-14.5) % Plt Count 685 H (130-400) K/uL MPV 9.0 (7.4-10.4) fL Immature Gran % (Auto) 0.7 % Neut % (Auto) 82.2 % Lymph % (Auto) 8.5 % [place] % (Auto) 8.3 % Eos % (Auto) 0.0 % Baso % (Auto) 0.3 % Neut # (Auto) 17.32 H (1.4-6.5) K/uL Lymph # (Auto) 1.78 (1.2-3.4) K/uL [place] # (Auto) 1.74 H (0.11-0.59) K/uL Eos # (Auto) 0.00 (0-0.5) K/uL Baso # (Auto) 0.06 (0-0.2) K/uL Immature Gran # (Auto) 0.14 H (0.00-0.02) K/uL PT 12.5 H (9.0-12.0) Seconds INR 1.2 H (0.9-1.1) APTT 30.6 (21.0-31.0) Seconds PTT Ratio 1.1 Sodium 139 (136-145) mmol/L Potassium 3.9 (3.5-5.1) mmol/L Chloride 106 (98-107) mmol/L Carbon Dioxide 22 (21-32) mmol/L Anion Gap 11.0 (3-11) BUN 33 H (7-18) mg/dl Creatinine 1.60 H (0.6-1.2) mg/dl Est Cr Clr Drug Dosing Not Reportable Est GFR ( Amer) 38.5 Est GFR (Non-Af Amer) 33.2 BUN/Creatinine Ratio 20.4 H (10-20) Glucose 244 H (70-99) mg/dl Lactate (0.4-2.0) mmol/L Calcium 10.7 H (8.5-10.1) mg/dl Phosphorus 1.2 L* (2.5-4.9) mg/dl Magnesium 1.8 (1.8-2.4) mg/dl Total Bilirubin 0.7 (0.2-1) mg/dl AST 23 (15-37) U/L ALT 29 (12-78) U/L Alkaline Phosphatase 103 (45-117) U/L Troponin I < 0.015 (0-0.045) ng/ml Total Protein 8.7 H (6.4-8.2) gm/dl Albumin 3.9 (3.4-5.0) gm/dl Globulin 4.8 H (2.5-4.0) gm/dl Albumin/Globulin Ratio 0.8 L (0.9-2) Lipase 189 (73-393) U/L TSH 1.020 (0.300-4.500) uIu/ml Urine Color Urine Appearance (Clear) Urine pH (4.5-7.5) Ur Specific Wilson (1.000-1.030) Urine Protein (Negative) Urine Glucose (UA) (Negative) Urine Ketones (Negative) Urine Blood (Negative) Urine Nitrite (Negative) Urine Bilirubin (Negative) Urine Urobilinogen (Negative) Ur Leukocyte Esterase (Negative) Urine WBC (Auto) (0-5) /hpf Urine RBC (Auto) (0-4) /hpf U Hyaline Cast (Auto) (0-5) /lpf U Epithel Cells (Auto) (0-5) /lpf Urine Bacteria (Auto) (Negative) 02/10/20 02/10/20 02/10/20 Range/Units 17:33 20:06 21:00 WBC (4.8-10.8) K/uL RBC (4.2-5.4) M/uL Hgb (12.0-16.0) g/dL Hct (37-47) % MCV (80-100) fL MCH (25-34) pg MCHC (32-36) g/dL RDW Std Deviation (36.4-46.3) fL RDW Coeff of Bernie (11.5-14.5) % Plt Count (130-400) K/uL MPV (7.4-10.4) fL Immature Gran % (Auto) % Neut % (Auto) % Lymph % (Auto) % [place] % (Auto) % Eos % (Auto) % Baso % (Auto) % Neut # (Auto) (1.4-6.5) K/uL Lymph # (Auto) (1.2-3.4) K/uL [place] # (Auto) (0.11-0.59) K/uL Eos # (Auto) (0-0.5) K/uL Baso # (Auto) (0-0.2) K/uL Immature Gran # (Auto) (0.00-0.02) K/uL PT (9.0-12.0) Seconds INR (0.9-1.1) APTT (21.0-31.0) Seconds PTT Ratio Sodium (136-145) mmol/L Potassium (3.5-5.1) mmol/L Chloride (98-107) mmol/L Carbon Dioxide (21-32) mmol/L Anion Gap (3-11) BUN (7-18) mg/dl Creatinine (0.6-1.2) mg/dl Est Cr Clr Drug Dosing Est GFR ( Amer) Est GFR (Non-Af Amer) BUN/Creatinine Ratio (10-20) Glucose (70-99) mg/dl Lactate 4.5 H* 2.5 H* (0.4-2.0) mmol/L Calcium (8.5-10.1) mg/dl Phosphorus (2.5-4.9) mg/dl Magnesium (1.8-2.4) mg/dl Total Bilirubin (0.2-1) mg/dl AST (15-37) U/L ALT (12-78) U/L Alkaline Phosphatase (45-117) U/L Troponin I (0-0.045) ng/ml Total Protein (6.4-8.2) gm/dl Albumin (3.4-5.0) gm/dl Globulin (2.5-4.0) gm/dl Albumin/Globulin Ratio (0.9-2) Lipase (73-393) U/L TSH (0.300-4.500) uIu/ml Urine Color Yellow Urine Appearance Clear (Clear) Urine pH 5.0 (4.5-7.5) Ur Specific Wilson > 1.045 H (1.000-1.030) Urine Protein Negative (Negative) Urine Glucose (UA) Negative (Negative) Urine Ketones Negative (Negative) Urine Blood Trace H (Negative) Urine Nitrite Negative (Negative) Urine Bilirubin Negative (Negative) Urine Urobilinogen Negative (Negative) Ur Leukocyte Esterase 1+ H (Negative) Urine WBC (Auto) 10-30 H (0-5) /hpf Urine RBC (Auto) 0-4 (0-4) /hpf U Hyaline Cast (Auto) 1-5 (0-5) /lpf U Epithel Cells (Auto) 5-10 H (0-5) /lpf Urine Bacteria (Auto) Negative (Negative) Administered Medications Ioversol (Optiray 320 125ml) 118 ml IV ONCE PRN PRN Reason: Interaction Checking Stop: 02/14/20 18:49 Last Admin: 02/10/20 18:51 Dose: 118 ml Documented by: [id number] Discontinued Medications Sodium Chloride (Nss 1000ml) 1,000 mls @ 999 mls/hr IV .Q1H1M ONE Stop: 02/10/20 17:32 Last Infusion: 02/10/20 19:04 Dose: 0 mls/hr Documented by: [id number] Admin: 02/10/20 18:08 Dose: 999 mls/hr Documented by: [id number] Acetaminophen (Ofirmev) 1,000 mg in 100 mls @ 400 mls/hr IV NOW STA Stop: 02/10/20 16:58 Last Infusion: 02/10/20 18:28 Dose: 0 mls/hr Documented by: [id number] Admin: 02/10/20 18:13 Dose: 400 mls/hr Documented by: [id number] Famotidine (Pepcid 20mg Iv Push) 20 mg in 5 mls @ 2.5 mls/min IV NOW STA Stop: 02/10/20 16:45 Last Admin: 02/10/20 18:10 Dose: 2.5 mls/min Documented by: [id number] Vancomycin HCl 1,400 mg/ (Sodium Chloride) 528 mls @ 200 mls/hr IV NOW ONE Stop: 02/10/20 20:52 Last Admin: 02/10/20 19:44 Dose: Not Given Documented by: [id number] Piperacillin Sod/Tazobactam Sod (Zosyn) 4.5 gm in 120 mls @ 240 mls/hr IV NOW ONE Stop: 02/10/20 18:52 Last Infusion: 02/10/20 19:44 Dose: 0 mls/hr Documented by: [id number] Admin: 02/10/20 19:04 Dose: 240 mls/hr Documented by: [id number] Vancomycin HCl 1,500 mg/ (Sodium Chloride) 530 mls @ 200 mls/hr IV NOW ONE Stop: 02/10/20 21:08 Last Infusion: 02/10/20 22:12 Dose: 0 mls/hr Documented by: [id number] Admin: 02/10/20 19:43 Dose: 200 mls/hr Documented by: [id number] Sodium Chloride (Nss 1000ml) 1,000 mls @ 999 mls/hr IV .Q1H1M ONE Stop: 02/10/20 20:59 Last Infusion: 02/10/20 22:12 Dose: 0 mls/hr Documented by: [id number] Admin: 02/10/20 20:16 Dose: 999 mls/hr Documented by: [id number] Potassium Phosphate 9 mmol/ (Sodium Chloride) 253 mls @ 88 mls/hr IV ONE ONE Stop: 02/10/20 23:22 Last Admin: 02/10/20 22:35 Dose: 88 mls/hr Documented by: [id number] Morphine Sulfate (Morphine Sulfate) 2 mg IV NOW STA Stop: 02/10/20 20:30 Last Admin: 02/10/20 20:57 Dose: 2 mg Documented by: [id number] Blood Pressure Blood Pressure Findings: Normal blood pressure Discharge Plan Visit Data *Final* Discharge Date/Time: 02/10/20 23:42 Chief Complaint: Dizziness Stated Complaint: DIZZINESS HIP SHANTE 2WK AGO ED Provider: Felipe Tong Discharge Problem: Sepsis, Acute UTI, Acute kidney insufficiency, Hypophosphatemia, Hypercalcemia Patient Disposition: Admitted As Inpatient Discharge Instructions Interventions: ED Discharge Assessment Last Done: 02/10/20 23:42 Discharge Problem: Sepsis Qualifiers: Sepsis type: sepsis due to unspecified organism Sepsis acute organ dysfunction status: with acute organ dysfunction Severe sepsis acute organ dysfunction type: acute renal failure Acute renal failure type: unspecified Severe sepsis shock status: without septic shock Qualified Code(s): A41.9 - Sepsis, unspecified organism
--- NOTE | 2020-02-10 17:09 | XRay Report ---
SINGLE VIEW CHEST CLINICAL HISTORY: Atypical chest pain. Dizziness. FINDINGS: An AP, portable, upright chest radiograph is compared to study dated 09/28/2019. The cardiom ediastinal silhouette is unremarkable noting atherosclerotic calcification of the thoracic aorta. The re is dependent atelectasis. The lungs and pleural spaces are otherwise clear. No pneumothorax is see n. The skeletal structures are osteopenic. The bony thorax is grossly intact. IMPRESSION: No active disease in the chest. ACT 112: Negative or not required by law. Electronically signed by: Ludwin Calvillo M.D. 02/10/2020 5:07 PM
[2020-02-10 17:46] LABS: Basophils # (auto) 0.06 K/uL (0-0.2); Basophils % (auto) 0.3 %; Hematocrit (blood only) 38.9 % (37-47); Hemoglobin 13.4 g/dL (12.0-16.0); Immature Granulocytes # (auto) 0.14 K/uL (0.00-0.02); Immature Granulocytes % (auto) 0.7 %; Lymphocytes # (auto) 1.78 K/uL (1.2-3.4); Lymphocytes % (auto) 8.5 %; Mean Corpuscular Hemoglobin 30.3 pg (25-34); Mean Corpuscular Hgb Conc 34.4 g/dL (32-36); Monocytes # (auto) 1.74 K/uL (0.11-0.59); Monocytes % (auto) 8.3 %; Neutrophils # (auto) 17.32 K/uL (1.4-6.5); Neutrophils % (auto) 82.2 %; Platelet Count 685 K/uL (130-400); RDW Coefficient of Variation 13.3 % (11.5-14.5); RDW Standard Deviation 42.5 fL (36.4-46.3); Red Blood Count 4.42 M/uL (4.2-5.4); White Blood Count 21.04 K/uL (4.8-10.8)
[2020-02-10 17:56] LABS: INR 1.2 (0.9-1.1); Partial Thromboplastin Ratio 1.1; Partial Thromboplastin Time 30.6 Seconds (21.0-31.0); Prothrombin Time 12.5 Seconds (9.0-12.0)
[2020-02-10 18:07] LABS: Alanine Aminotransferase 29 U/L (12-78); Albumin Level 3.9 gm/dl (3.4-5.0); Aspartate Aminotransferase 23 U/L (15-37); BUN Creatinine Ratio 20.4 (10-20); Blood Urea Nitrogen 33 mg/dl (7-18); Calcium 10.7 mg/dl (8.5-10.1); Carbon Dioxide 22 mmol/L (21-32); Chloride 106 mmol/L (98-107); Est GFR (African American) 38.5; Est GFR (Non-African American) 33.2; Glucose 244 mg/dl (70-99); Lipase 189 U/L (73-393); Magnesium 1.8 mg/dl (1.8-2.4); Potassium 3.9 mmol/L (3.5-5.1); Sodium 139 mmol/L (136-145)
[2020-02-10] MEDS ORDERED: VANCOMYCIN HCL 1,400 MG in SODIUM CHLORIDE 0.9% 500 ML IV ONE (18:23)
[2020-02-10] MEDS ORDERED: PIPERACILL/TAZOBAC CONSULT ACTIVE PRN (18:23)
[2020-02-10] MEDS ORDERED: PIPERACILLIN/TAZOBACTAM 4.5 GM/120 ML BAG IV ONE (18:23)
[2020-02-10] MEDS ORDERED: VANCOMYCIN CONSULT ACTIVE PRN (18:23)
[2020-02-10] MEDS ORDERED: VANCOMYCIN HCL 1,500 MG in SODIUM CHLORIDE 0.9% 500 ML IV ONE (18:30)
[2020-02-10] MEDS ORDERED: OPTIRAY 320 125ml IV PRN (18:50)
[2020-02-10 18:57] LABS: Albumin Globulin Ratio 0.8 (0.9-2); Alkaline Phosphatase 103 U/L (45-117); Bilirubin,Total 0.7 mg/dl (0.2-1); Globulin 4.8 gm/dl (2.5-4.0); Phosphorus 1.2 mg/dl (2.5-4.9); Total Protein 8.7 gm/dl (6.4-8.2); Troponin I < 0.015 ng/ml (0-0.045)
--- NOTE | 2020-02-10 19:20 | CT Scan Report ---
CT ANGIOGRAM OF THE CHEST; CT SCAN OF THE ABDOMEN AND PELVIS WITH IV CONTRAST CLINICAL HISTORY: Atypical chest pain. Fever. Generalized abdominal pain. COMPARISON STUDY: Chest x-ray dated 02/10/2020. Pelvic radiograph dated 01/12/2020. TECHNIQUE: Following the IV administration of 118 of Optiray 320, CT angiogram of the chest is perfor med from the upper abdomen to the thoracic inlet utilizing the pulmonary embolus protocol. Images are reviewed in the axial, sagittal, coronal planes. 3-D MIPS images are created and assessed. Subsequen tly, CT scan of the abdomen and pelvis was performed from the lung bases to the proximal femora. Imag es are reviewed in the axial, sagittal, and coronal planes. IV contrast was administered without comp lication. A dose lowering technique was utilized adhering to the principles of ALARA. CT DOSE: 683.43 mGy.cm FINDINGS: CHEST: Thyroid: Imaged portions of the thyroid gland are normal in size and attenuation. Thoracic aorta: There is mild atherosclerotic calcification of the thoracic aorta, which is normal in caliber and demonstrates standard 3-vessel arch anatomy. No dissection is seen. Pulmonary vasculature: The pulmonary trunk is normal in caliber. There are no filling defects identif ied in the main, lobar, or segmental pulmonary arteries to indicate pulmonary embolus. Heart: The heart is normal in size and configuration, and without pericardial effusion. Lungs and pleural spaces: There is no airspace consolidation or pleural effusion. Dependent atelectas is is noted at the lung bases. The trachea and central airways are clear. Mild diffuse peribronchial thickening is observed. Mediastinum: There is no mediastinal lymphadenopathy. Claudia: Clear. Axillae: There is no axillary lymphadenopathy. Bony thorax: The skeletal structures are osteopenic. Degenerative change is noted throughout the thor acic spine. No lytic or blastic lesions are identified. ABDOMEN AND PELVIS: Liver: The contrast-enhanced liver is normal in size, contour, and attenuation. There is mild intrahe patic or ductal dilatation. The hepatic veins and portal veins are patent. Gallbladder: Surgically absent. Spleen: The spleen is not identified and presumed surgically absent. Pancreas: Mildly atrophic and grossly unremarkable. Adrenal glands: Unremarkable. Kidneys: The contrast enhanced kidneys are normal in size and without hydronephrosis. The kidneys enh ance symmetrically. Foci of parenchymal scarring are noted in the upper pole of the left kidney. A ca lyceal diverticulum is suspected. Abdominal vasculature: The abdominal aorta is normal in course and caliber noting mild atheroscleroti c calcification. Bowel: There is no bowel obstruction. Focal narrowing is seen in the distal transverse colon on image #[id number]. The appendix is well-visualized and normal. Peritoneum: There is no intraperitoneal free air or abdominal ascites. There is a small fat-containin g umbilical hernia. Lymphadenopathy: None. Pelvic viscera: Evaluation of the pelvis is significantly degraded by streak artifact from bilateral hip arthroplasties. The bladder wall appears thickened and hyperemic. The endometrium appears thicken ed for age, measuring up to 7 mm. No adnexal lesion is identified. Skeletal structures: The skeletal structures are osteopenic. There is mild to moderate lumbosacral sp ondylosis. No lytic or blastic lesions are seen. Bilateral hip arthroplasties are in place. Soft tiss ue edema overlies the left hip. There is a gas and fluid containing collection identified in the left upper thigh anterior to the femoral trochanters. This is best seen on image #414 and measures at [address] st 5.5 x 4 x 2.5 cm. IMPRESSION: 1. There is no evidence of pulmonary embolus in the main, lobar, or segmental pulmonary arteries. 2. There is no airspace consolidation or pleural effusion. 3. Mild diffuse peribronchial thickening suggests bronchitis/reactive airway disease. Clinical correl ation will be required. 4. There is an approximately 5.5 x 4 x 2.5 cm peripherally enhancing gas and fluid containing fluid c ollection in the left upper thigh anterior to the trochanters of the left femur. This is atypical for expected postoperative change and concerning for developing abscess. Clinical correlation will be es sential. 5. The bladder wall appears circumferential thickened and hyperemic. Correlate clinically and with ur inalysis for evidence of cystitis. 6. The endometrium appears thickened for age. This is not well evaluated by CT. Nonemergent gynecolog y follow-up and pelvic ultrasound is recommended for further assessment. 7. There is focal narrowing identified in the distal transverse colon which likely resents underdiste ntion. If not recently performed, follow-up with outpatient colostomy is recommended for further asse ssment. 8. The spleen is not identified and presumed surgically absent. 9. Additional findings as above. ACT 112: Negative or not required by law. Electronically signed by: Ludwin Calvillo M.D. 02/10/2020 7:19 PM
[2020-02-10] MEDS ORDERED: POTASSIUM PHOS 3 MMOL/1 ML INFUSION IV STA ×2 (19:59→22:58)
[2020-02-10] MEDS ORDERED: MoRPHine SULFATE 2 MG/ML CARP IV STA (20:29)
[2020-02-10] MEDS ORDERED: POTASSIUM PHOSPHATE 9 MMOL in SODIUM CHLORIDE 0.9% 250 ML IV ONE (20:30)
[2020-02-10 21:17] LABS: Appearance Urine Clear (Clear); Bacteria Urine Automated Negative (Negative); Bilirubin Urine Negative (Negative); Blood Urine Trace (Negative); Color Urine Yellow; Glucose Urine UA Negative (Negative); Ketones Urine Negative (Negative); Leukocyte Esterase Urine 1+ (Negative); Nitrite Urine Negative (Negative); Protein Urine Negative (Negative); RBC Urine Automated 0-4 /hpf (0-4); Specific Gravity Urine > 1.045 (1.000-1.030); Urobilinogen Urine Negative (Negative)
--- NOTE | 2020-02-10 22:34 | History & Physical Report ---
Date of Service February 10, 2020 Assessment & Plan (1) Sepsis: Sepsis- Differential including bronchitis, cystitis associated with acute kidney injury and left thigh seroma versus abscess. Place on daptomycin IV and Zosyn IV. Follow all cultures. NSS at 80 mils per hour. Present on Admission?: Yes (2) Bronchitis: See above Present on Admission?: Yes (3) Hypertension: Blood pressure is borderline low. We will hold valsartan. Present on Admission?: Yes (4) Diabetes mellitus type 2, controlled: Hold metformin. Patient Accu-Cheks before meals and at bedtime with NovoLog coverage per scale Present on Admission?: Yes (5) Hypophosphatemia: Received 9 mmol K-Phos in the ED. Place on 30 mmol IV, repeat laboratories serially Present on Admission?: Yes (6) Acute kidney insufficiency: Creatinine 1.60 on admission with range 0.71-0.90. Follow labs serially Present on Admission?: Yes (7) Seizure, epileptic: Continue Keppra 2050 mg p.o. twice daily Present on Admission?: Yes (8) Hypothyroidism: Continue levothyroxine sodium 50 mcg every morning Present on Admission?: Yes History of Present Illness Chief Complaint: The patient presents to the emergency department with generali zed weakness, dizziness, decreased appetite, shortness of breath, body aches and chills that been worsening over the past week. Primary Care Provider: Nba Sheldon MD The patient is a 64-year-old female with a past medical history including seizure disorder, osteoarthritis, lumbar disc disease, hypothyroidism, hyperten annamarie, bilateral hearing loss, fibromyalgia, diabetes mellitus, carotid artery disease, bilateral carpal tunnel syndrome, urinary tract infection, hypophosphatemia, hypercalcemia, sleep apnea and status post left total hip arthroplasty on 01/12/2020. The patient does also note some slight chest discomfort with episodic shortness of breath, and had a CT angiography of the chest which showed bronchitis. She also underwent a CT of the abdomen and pelvis which showed a left upper thigh 5.5 x 4 x 2.5 cm gas and fluid collection. CT was also concerning for gram possible cystitis and thickened endometrium. Significant laboratories included a low phosphorus of 1.2, increased WBC of 21.04, increased creatinine to 1.60, and increased platelets of 685. Allergies Allergy/AdvReac Type Severity Reaction Status Date / Time sertraline Allergy Unknown Hives Verified 02/10/20 21:17 Corticosteroids AdvReac Mild STEROID Verified 02/10/20 21:17 (Glucocorticoids) INJECTIONS-NAUSEA,FLUSHING,HIVES Home Medications Home Medications Medication Instructions Recorded Confirmed Type levetiracetam 250 mg tablet 250 mg PO BID #180 tab 05/02/19 02/10/20 Rx duloxetine 30 mg PO QPM 09/23/19 02/10/20 History multivitamin [Daily Multi-Vitamin] 2 tab PO QAM 09/23/19 02/10/20 History simvastatin 40 mg PO QPM 09/27/19 02/10/20 History montelukast 10 mg tablet 10 mg PO QAM #90 tab 12/13/19 02/10/20 Rx aspirin 81 mg PO BID #56 tab 01/12/20 02/10/20 Rx metformin 500 mg tablet 500 mg PO QAM #90 tab 01/17/20 02/10/20 Rx cyclobenzaprine 10 mg tablet 10 mg PO HS PRN #30 tab 02/09/20 02/10/20 Rx acetaminophen 1,000 mg PO Q8 PRN 02/10/20 02/10/20 History albuterol sulfate [Ventolin HFA] 1 - 2 puff INH Q6H PRN 02/10/20 02/10/20 History celecoxib [Celebrex] 200 mg PO BID PRN 02/10/20 02/10/20 History dextran 70-hypromellose (PF) 1 drp OPHTHALMIC (EYE) DIRECTED 02/10/20 02/10/20 History [Artificial Tears (PF)] PRN levothyroxine 50 mcg PO QAM 02/10/20 02/10/20 History oxycodone 5 mg PO .Q4-6HRS PRN MDD 6 TABLETS 02/10/20 02/10/20 History sennosides [Senokot] 17.2 mg PO HS 02/10/20 02/10/20 History valsartan 160 mg PO QAM 02/10/20 02/10/20 History zolpidem 10 mg PO HS PRN 02/10/20 02/10/20 History Past Med/Surg History Medical History Anxiety Asthma Only using BID inhaler as PRN Degenerative disc disease Depression Hearing deficit 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 Single episode, felt 2/2 dehydration.-NO ISSUES SINCE History of shingles Hyperlipidemia Hypertension Hypothyroid Osteoarthritis Prediabetes ORAL MED Sleep apnea Not currently using CPAP Surgical History History of colonoscopy History of tonsillectomy and adenoidectomy History of total right hip replacement Hx of splenectomy ALSO - TACOS AND APPY AT SAME TIME DUE TO HEREDITARY SPHEROCYTOSIS Hx of tubal ligation Family History Sister Family history of diabetes mellitus Social History Smoking Status: Never smoker Second Hand Exposure: Yes (MOTHER SMOKED); Hx Alcohol Use: Yes Alcohol type: wine Hx Substance Use: No Preferred Language: Indonesian Communication Ability: Effective Child Welfare Worker Required: No Beliefs That Will Affect Care: None marital status: Current Living Situation: Spouse Other Information That Helps Us Care for You: No Feels Safe at Home: Yes Safety Concerns: Feels Safe At This Time Review of Systems Review of Systems: The patient denies palpitations, lower extremity swelling, sore throat, fevers, chills, sweats, nausea, vomiting, diarrhea , constipation, abdominal pain, pelvic pain, blood in urine or stool, dysuria, urinary frequency or urgency, memory loss, loss of consciousness, rash, abnormal bruising or bleeding, imbalance, focal or generalized weakness, numbness or tingling in arms, generalized arthralgias or myalgias, back or neck pain, or night sweats. The review of systems is otherwise negative other than for that already noted above, and at least 10 systems have been reviewed. Physical Exam Physical Exam: The patient is awake, alert and oriented 3, well developed and well nourished, normocephalic and atraumatic, lying in bed and in no acute distress. HEENT--PERRL, EOMI, mucous membranes and oropharynx dry. Neck--supple. No JVD. No bruits. Thyroid normal, trachea midline, no adenopathy. Heart--normal S1 and S2. No murmurs, rubs or gallops. Lungs--clear bilaterally, no respiratory distress, no accessory muscle use. Abdomen--normal bowel sounds and soft. Nontender. Nondistended. Extremities--no cyanosis or clubbing. No edema. Mild pain over left hip. Dermatologic--normal skin turgor, normal color, no abnormal lymph nodes, no rash. Neurologic--cranial nerves II through XII grossly intact. Rheumatologic--normal range of motion. Psychiatric--normal affect. Results & Data Results & Data ([facility]) Vital Signs (Past 12 Hours) Vital Signs Temp Pulse Pulse Resp BP BP Pulse Ox 02/10/20 21:00 84 18 107/72 96 02/10/20 19:07 84 18 128/72 97 02/10/20 18:30 83 11 L 149/50 H 94 02/10/20 18:08 86 24 128/82 94 02/10/20 17:41 97 02/10/20 17:03 98.4 F 97 H 20 97 02/10/20 16:19 119 H 20 110/65 97 Laboratory Results Laboratory Results WBC 21.04 K/uL (4.8-10.8) H 02/10/20 17:33 RBC 4.42 M/uL (4.2-5.4) 02/10/20 17:33 Hgb 13.4 g/dL (12.0-16.0) 02/10/20 17:33 Hct 38.9 % (37-47) 02/10/20 17:33 MCV 88.0 fL (80-100) 02/10/20 17:33 MCH 30.3 pg (25-34) 02/10/20 17:33 MCHC 34.4 g/dL (32-36) 02/10/20 17:33 RDW Std Deviation 42.5 fL (36.4-46.3) 02/10/20 17:33 RDW Coeff of Bernie 13.3 % (11.5-14.5) 02/10/20 17:33 Plt Count 685 K/uL (130-400) H 02/10/20 17:33 MPV 9.0 fL (7.4-10.4) 02/10/20 17:33 Immature Gran % (Auto) 0.7 % 02/10/20 17:33 Neut % (Auto) 82.2 % 02/10/20 17:33 Lymph % (Auto) 8.5 % 02/10/20 17:33 [place] % (Auto) 8.3 % 02/10/20 17:33 Eos % (Auto) 0.0 % 02/10/20 17:33 Baso % (Auto) 0.3 % 02/10/20 17:33 Neut # (Auto) 17.32 K/uL (1.4-6.5) H 02/10/20 17:33 Lymph # (Auto) 1.78 K/uL (1.2-3.4) 02/10/20 17:33 [place] # (Auto) 1.74 K/uL (0.11-0.59) H 02/10/20 17:33 Eos # (Auto) 0.00 K/uL (0-0.5) 02/10/20 17:33 Baso # (Auto) 0.06 K/uL (0-0.2) 02/10/20 17:33 Immature Gran # (Auto) 0.14 K/uL (0.00-0.02) H 02/10/20 17:33 PT 12.5 Seconds (9.0-12.0) H 02/10/20 17:33 INR 1.2 (0.9-1.1) H 02/10/20 17:33 APTT 30.6 Seconds (21.0-31.0) 02/10/20 17:33 PTT Ratio 1.1 02/10/20 17:33 Sodium 139 mmol/L (136-145) 02/10/20 17:33 Potassium 3.9 mmol/L (3.5-5.1) 02/10/20 17:33 Chloride 106 mmol/L (98-107) 02/10/20 17:33 Carbon Dioxide 22 mmol/L (21-32) 02/10/20 17:33 Anion Gap 11.0 (3-11) 02/10/20 17:33 BUN 33 mg/dl (7-18) H 02/10/20 17:33 Creatinine 1.60 mg/dl (0.6-1.2) H 02/10/20 17:33 Est Cr Clr Drug Dosing Not Reportable 02/10/20 17:33 Est GFR ( Amer) 38.5 02/10/20 17:33 Est GFR (Non-Af Amer) 33.2 02/10/20 17:33 BUN/Creatinine Ratio 20.4 (10-20) H 02/10/20 17:33 Glucose 244 mg/dl (70-99) H 02/10/20 17:33 Lactate 2.5 mmol/L (0.4-2.0) H* 02/10/20 20:06 Calcium 10.7 mg/dl (8.5-10.1) H 02/10/20 17:33 Phosphorus 1.2 mg/dl (2.5-4.9) L* 02/10/20 17:33 Magnesium 1.8 mg/dl (1.8-2.4) 02/10/20 17:33 Total Bilirubin 0.7 mg/dl (0.2-1) 02/10/20 17:33 AST 23 U/L (15-37) 02/10/20 17:33 ALT 29 U/L (12-78) 02/10/20 17:33 Alkaline Phosphatase 103 U/L (45-117) 02/10/20 17:33 Troponin I < 0.015 ng/ml (0-0.045) 02/10/20 17:33 Total Protein 8.7 gm/dl (6.4-8.2) H 02/10/20 17:33 Albumin 3.9 gm/dl (3.4-5.0) 02/10/20 17:33 Globulin 4.8 gm/dl (2.5-4.0) H 02/10/20 17:33 Albumin/Globulin Ratio 0.8 (0.9-2) L 02/10/20 17:33 Lipase 189 U/L (73-393) 02/10/20 17:33 TSH 1.020 uIu/ml (0.300-4.500) 02/10/20 17:33 Urine Color Yellow 02/10/20 21:00 Urine Appearance Clear (Clear) 02/10/20 21:00 Urine pH 5.0 (4.5-7.5) 02/10/20 21:00 Ur Specific [place] > 1.045 (1.000-1.030) H 02/10/20 21:00 Urine Protein Negative (Negative) 02/10/20 21:00 Urine Glucose (UA) Negative (Negative) 02/10/20 21:00 Urine Ketones Negative (Negative) 02/10/20 21:00 Urine Blood Trace (Negative) H 02/10/20 21:00 Urine Nitrite Negative (Negative) 02/10/20 21:00 Urine Bilirubin Negative (Negative) 02/10/20 21:00 Urine Urobilinogen Negative (Negative) 02/10/20 21:00 Ur Leukocyte Esterase 1+ (Negative) H 02/10/20 21:00 Urine WBC (Auto) 10-30 /hpf (0-5) H 02/10/20 21:00 Urine RBC (Auto) 0-4 /hpf (0-4) 02/10/20 21:00 U Hyaline Cast (Auto) 1-5 /lpf (0-5) 02/10/20 21:00 U Epithel Cells (Auto) 5-10 /lpf (0-5) H 02/10/20 21:00 Urine Bacteria (Auto) Negative (Negative) 02/10/20 21:00 Diagnostic Findings [place], [place] [phone] XRay Report Patient: MARIZOL MARTINEZ Date: 02/10/20 MR#: [id number]: [address] Acct ID:[id number]: [facility] [place] [address] Age: 64Location: ED Sex: F Room/Bed: Att Phy:Diagnosis: DIZZINESS HIP SUARY 2WK AGO Nichole Phy: Nba Sheldon, MATTYervice Date: 02/10/20 Fam Phy:Interpreting Phy: Ludwin Calvillo MD Admit Phy: Ordering Phy: Felipe Tong M.D. cc: ~ SINGLE VIEW CHEST CLINICAL HISTORY: Atypical chest pain. Dizziness. FINDINGS: An AP, portable, upright chest radiograph is compared to study dated 09/28/2019. The cardiomediastinal silhouette is unremarkable noting atherosclerotic calcification of the thoracic aorta. There is dependent atelectasis. The lungs and pleural spaces are otherwise clear. No pneumothorax is seen. The skeletal structures are osteopenic. The bony thorax is grossly intact. IMPRESSION: No active disease in the chest. ACT 112: Negative or not required by law. Electronically signed by: Ludwin Calvillo M.D. 02/10/2020 5:07 PM Dictated: 02/10/201705 Transcribed: 02/10/201705 [place], [place] [phone] CT Scan Report Patient: MARIZOL MARTINEZ Date: 02/10/20 MR#: [id number]: [address] Acct ID:[id number]: [facility] Zip: [place] [address] Age: 64Location: ED Sex: F Room/Bed: Att Phy:Diagnosis: DIZZINESS HIP SUARY 2WK AGO Nichole Phy: Nba Sheldon, MDService Date: 02/10/20 Fam Phy:Interpreting Phy: Ludwin Calvillo MD Admit Phy: Ordering Phy: Felipe Tong M.D. cc: ~ CT ANGIOGRAM OF THE CHEST; CT SCAN OF THE ABDOMEN AND PELVIS WITH IV CONTRAST CLINICAL HISTORY: Atypical chest pain. Fever. Generalized abdominal pain. COMPARISON STUDY: Chest x-ray dated 02/10/2020. Pelvic radiograph dated 01/12/2020. TECHNIQUE: Following the IV administration of 118 of Optiray 320, CT angiogram of the chest is performed from the upper abdomen to the thoracic inlet utilizing the pulmonary embolus protocol. Images are reviewed in the axial, sagittal, coronal planes. 3-D MIPS images are created and assessed. Subsequently, CT scan of the abdomen and pelvis was performed from the lung bases to the proximal femora. Images are reviewed in the axial, sagittal, and coronal planes. IV contrast was administered without complication. A dose lowering technique was utilized adhering to the principles of ALARA. CT DOSE: 683.43 mGy.cm FINDINGS: CHEST: Thyroid: Imaged portions of the thyroid gland are normal in size and attenuation. Thoracic aorta: There is mild atherosclerotic calcification of the thoracic aorta, which is normal in caliber and demonstrates standard 3-vessel arch anatomy. No dissection is seen. Pulmonary vasculature: The pulmonary trunk is normal in caliber. There are no filling defects identified in the main, lobar, or segmental pulmonary arteries to indicate pulmonary embolus. Heart: The heart is normal in size and configuration, and without pericardial effusion. Lungs and pleural spaces: There is no airspace consolidation or pleural effusion. Dependent atelectasis is noted at the lung bases. The trachea and central airways are clear. Mild diffuse peribronchial thickening is observed. Mediastinum: There is no mediastinal lymphadenopathy. Claudia: Clear. Axillae: There is no axillary lymphadenopathy. Bony thorax: The skeletal structures are osteopenic. Degenerative change is noted throughout the thoracic spine. No lytic or blastic lesions are identified. ABDOMEN AND PELVIS: Liver: The contrast-enhanced liver is normal in size, contour, and attenuation. There is mild intrahepatic or ductal dilatation. The hepatic veins and portal veins are patent. Gallbladder: Surgically absent. Spleen: The spleen is not identified and presumed surgically absent. Pancreas: Mildly atrophic and grossly unremarkable. Adrenal glands: Unremarkable. Kidneys: The contrast enhanced kidneys are normal in size and without hydronephrosis. The kidneys enhance symmetrically. Foci of parenchymal scarring are noted in the upper pole of the left kidney. A calyceal diverticulum is suspected. Abdominal vasculature: The abdominal aorta is normal in course and caliber noting mild atherosclerotic calcification. Bowel: There is no bowel obstruction. Focal narrowing is seen in the distal t ransverse colon on image #207. The appendix is well-visualized and normal. Peritoneum: There is no intraperitoneal free air or abdominal ascites. There is a small fat-containing umbilical hernia. Lymphadenopathy: None. Pelvic viscera: Evaluation of the pelvis is significantly degraded by streak artifact from bilateral hip arthroplasties. The bladder wall appears thickened and hyperemic. The endometrium appears thickened for age, measuring up to 7 mm. No adnexal lesion is identified. Skeletal structures: The skeletal structures are osteopenic. There is mild to moderate lumbosacral spondylosis. No lytic or blastic lesions are seen. Bilateral hip arthroplasties are in place. Soft tissue edema overlies the left hip. There is a gas and fluid containing collection identified in the left upper thigh anterior to the femoral trochanters. This is best seen on image #414 and measures at least 5.5 x 4 x 2.5 cm. IMPRESSION: 1. There is no evidence of pulmonary embolus in the main, lobar, or segmental pulmonary arteries. 2. There is no airspace consolidation or pleural effusion. 3. Mild diffuse peribronchial thickening suggests bronchitis/reactive airway disease. Clinical correlation will be required. 4. There is an approximately 5.5 x 4 x 2.5 cm peripherally enhancing gas and fluid containing fluid collection in the left upper thigh anterior to the trochanters of the left femur. This is atypical for expected postoperative change and concerning for developing abscess. Clinical correlation will be essential. 5. The bladder wall appears circumferential thickened and hyperemic. Correlate clinically and with urinalysis for evidence of cystitis. 6. The endometrium appears thickened for age. This is not well evaluated by CT. Nonemergent gynecology follow-up and pelvic ultrasound is recommended for further assessment. 7. There is focal narrowing identified in the distal transverse colon which likely resents underdistention. If not recently performed, follow-up with outpatient colostomy is recommended for further assessment. 8. The spleen is not identified and presumed surgically absent. 9. Additional findings as above. ACT 112: Negative or not required by law. Electronically signed by: Ludwin Calvillo M.D. 02/10/2020 7:19 PM Dictated: 02/10/201856 Transcribed: 02/10/201856 [place], [place] [phone] XRay Report Patient: MARIZOL MARTINEZ Date: 02/10/20 MR#: [id number]: [address]ES Acct ID:[id number]: Date: [address] [place] [address] Zip: [place] [address] Age: 64Location: ED Sex: F Room/Bed: Att Phy:Diagnosis: DIZZINESS HIP SUARY 2WK AGO Nichole Phy: Nba Sheldon, MDService Date: 02/10/20 Fam Phy:Interpreting Phy: Ludwin Calvillo MD Admit Phy: Ordering Phy: Neville Anderson D.O. cc: ~ SINGLE VIEW PELVIS; 2 VIEWS LEFT HIP CLINICAL HISTORY: Infection. FINDINGS: An AP view of the pelvis with AP and frog-leg views of the left hip are compared to study dated 01/12/2020 and correlated with pelvic CT performed the same day 02/10/2020. The skeletal structures are osteopenic. There is no radiographic evidence of fracture involving the hips or bony pelvis. Bilateral hip arthroplasties are in near-anatomic alignment. No periprosthetic lucency is identified. Minimal degenerative change is seen in the sacroiliac joints. There is mild lumbosacral spondylosis. Mild soft tissue edema and foci of soft tissue gas overly the left hip. Excreted IV contrast fills the bladder. There is no bowel obstruction. IMPRESSION: No osseous abnormality is identified. The soft tissue findings were much better assessed on today's pelvic CT. Electronically signed by: Ludwin Calvillo M.D. 02/10/2020 10:42 PM Dictated: 02/10/202238 Transcribed: 02/10/202238 Code Status & VTE Plan Code Status Full code VTE Prophylaxis Plan VTE Prophylaxis will be ordered: Yes PG Care Time/CCT Total # of Minutes Spent Total Time Spent with Patient: Total time spent is greater than 50% in coordination of care (as documented) at patient's floor/unit and/or counseling patient: Coding Level of Care Code 92872 Initial Inpt Care Lvl 3 Diagnoses Sepsis A41.9; R65.20; N17.9 Acute renal failure type: unspecified Sepsis acute organ dysfunction status: with acute organ dysfunction Sepsis type: sepsis due to unspecified organism Severe sepsis acute organ dysfunction type: acute renal failure Severe sepsis shock status: without septic shock Bronchitis J40 Hypertension I10 Diabetes mellitus type 2, controlled E11.9 Hypophosphatemia E83.39 Acute kidney insufficiency N28.9 Seizure, epileptic G40.909 Hypothyroidism E03.9 (1) Sepsis Acute renal failure type: unspecified Sepsis acute organ dysfunction status: with acute organ dysfunction Sepsis type: sepsis due to unspecified organism Severe sepsis acute organ dysfunction type: acute renal failure Severe sepsis shock status: without septic shock Qualified Code(s): A41.9 - Sepsis, unspecified organism; R65.20 - Severe sepsis without septic shock; N17.9 - Acute kidney failure, unspecified
--- NOTE | 2020-02-10 22:43 | XRay Report ---
SINGLE VIEW PELVIS; 2 VIEWS LEFT HIP CLINICAL HISTORY: Infection. FINDINGS: An AP view of the pelvis with AP and frog-leg views of the left hip are compared to study d ated 01/12/2020 and correlated with pelvic CT performed the same day 02/10/2020. The skeletal structure s are osteopenic. There is no radiographic evidence of fracture involving the hips or bony pelvis. Bi lateral hip arthroplasties are in near-anatomic alignment. No periprosthetic lucency is identified. M inimal degenerative change is seen in the sacroiliac joints. There is mild lumbosacral spondylosis. M ild soft tissue edema and foci of soft tissue gas overly the left hip. Excreted IV contrast fills the bladder. There is no bowel obstruction. IMPRESSION: No osseous abnormality is identified. The soft tissue findings were much better assessed on today's pelvic CT. Electronically signed by: Ludwin Calvillo M.D. 02/10/2020 10:42 PM
[2020-02-10] MEDS ORDERED: POTASSIUM PHOSPHATE 30 MMOL in SODIUM CHLORIDE 0.9% 500 ML IV ONE (23:00)
[2020-02-11] MEDS ORDERED: DAPTOMYCIN CONSULT ACTIVE PRN (00:09)
[2020-02-11] MEDS ORDERED: MAGNESIUM HYDROXIDE SUSP 30 ML UDC PO PRN (00:09)
[2020-02-11] MEDS ORDERED: ACETAMINOPHEN 500 MG TAB PO PRN (00:09)
[2020-02-11] MEDS ORDERED: ACETAMINOPHEN 325 MG TAB PO PRN (00:09)
[2020-02-11] MEDS ORDERED: PIPERACILL/TAZOBAC CONSULT ACTIVE PRN (00:09)
[2020-02-11] MEDS ORDERED: ALUMINUM/MAGNESIUM SUSP 30 ML UDC PO PRN (00:09)
[2020-02-11] MEDS ORDERED: ONDANSETRON INJ 2 MG/ML 2 ML VIAL IV PRN (00:09)
[2020-02-11] MEDS ORDERED: OXYCODONE HCL IR 5 MG TAB (IMMEDIATE RELEASE) PO PRN (00:25)
[2020-02-11] MEDS ORDERED: CYCLOBENZAPRINE HCL 10 MG TAB PO PRN (00:25)
[2020-02-11] MEDS ORDERED: PATIENT'S HEIGHT AND/OR WEIGHT NEEDED SCH (00:30)
[2020-02-11] MEDS ORDERED: ARTIFICIAL TEARS OP PRN (00:30)
[2020-02-11] MEDS ORDERED: DAPTOmycin 300 MG in SYRINGE 0 ML IV ONE (01:00)
[2020-02-11] MEDS: ASPIRIN 81 MG ECTAB PO SCH ×3 (01:10→20:25)
[2020-02-11] MEDS: SODIUM CHLORIDE 0.9% 1000ML 1,000 ML IV SCH ×2 (01:10→12:13)
[2020-02-11] MEDS: ZOLPIDEM TARTRATE 10 MG TAB PO PRN ×2 (01:10→22:43)
[2020-02-11] MEDS: levETIRAcetam 250 MG TAB PO SCH ×3 (01:11→20:24)
[2020-02-11] MEDS: PIPERACILLIN/TAZOBACTAM 3.375 GM in DEXTROSE 5% 100 ML IV SCH ×3 (02:14→17:17)
[2020-02-11] MEDS: LEVOTHYROXINE SODIUM 50 MCG TABLET PO SCH (06:13)
[2020-02-11] MEDS: VALSARTAN 80 MG TAB PO SCH (08:35)
[2020-02-11] MEDS: HEPARIN SOD 5,000 UNIT/0.5 ML VIAL SQ SCH ×2 (08:35→20:26)
[2020-02-11] MEDS: MULTIVITAMIN TAB PO SCH (08:36)
[2020-02-11] MEDS: MONTELUKAST SODIUM 10 MG TABLET PO SCH (08:36)
[2020-02-11 09:21] LABS: BUN Creatinine Ratio 27.6 (10-20); C Reactive Protein 1.63 mg/dl (0-0.29); Calcium 8.5 mg/dl (8.5-10.1); Creatinine Clr Calc Pharmacy 58.9 ml/min; Est GFR (African American) 79.4; Est GFR (Non-African American) 68.5; Potassium 4.1 mmol/L (3.5-5.1)
[2020-02-11 09:32] LABS: Basophils # (auto) 0.06 K/uL (0-0.2); Basophils % (auto) 0.5 %; Eosinophils % (auto) 1.8 %; Hematocrit (blood only) 32.9 % (37-47); Hemoglobin 10.5 g/dL (12.0-16.0); Immature Granulocytes # (auto) 0.06 K/uL (0.00-0.02); Immature Granulocytes % (auto) 0.5 %; Lymphocytes # (auto) 4.13 K/uL (1.2-3.4); Lymphocytes % (auto) 36.6 %; Mean Corpuscular Hemoglobin 28.9 pg (25-34); Mean Corpuscular Hgb Conc 31.9 g/dL (32-36); Mean Corpuscular Volume 90.6 fL (80-100); Mean Platelet Volume 8.8 fL (7.4-10.4); Monocytes # (auto) 1.09 K/uL (0.11-0.59); Monocytes % (auto) 9.7 %; Neutrophils # (auto) 5.73 K/uL (1.4-6.5); Neutrophils % (auto) 50.9 %; Platelet Count 548 K/uL (130-400); RDW Coefficient of Variation 13.5 % (11.5-14.5); RDW Standard Deviation 44.8 fL (36.4-46.3); Red Blood Count 3.63 M/uL (4.2-5.4); White Blood Count 11.27 K/uL (4.8-10.8)
--- NOTE | 2020-02-11 09:32 | Orthopedic Consultation ---
Date of Consultation February 11, 2020 Assessment & Plan (1) History of total hip arthroplasty: Clinical exam does not suggest infectious process of left anterior total hip arthroplasty in the immediate post operative period, 4 weeks post op. The patient's physical exam was benign. CT obtained demonstrates questionable developing abscess at the level of the trochanter with soft tissue edema. At this time I would recommend intra-articular aspiration of left hip, sending synovial fluid for cell count, Gram stain and culture. We will follow-up results once available. Thank you for the consultation History of Present Illness Reason for Consultation: Status post left total hip arthroplasty with questionable infection Attending Physician: Eleno Alejandra DO History of Present Illness The patient is a 64-year-old female with significant past surgical history for left anterior total hip arthroplasty performed on 01/12/2020. The patient's postoperative course was uneventful and without complications. She was discharged home with home health services. Seen postoperatively at 2 weeks on 01/26/2020. Patient was doing well and advancing with physical therapy. Patient reports that since 02/06/2028 she developed increasing fatigue and dizziness. 1 day history of abdominal pain. Patient was seen at [facility] on 02/10/2020 and found to be septic. She was admitted for further inpatient observation and intervention. Patient reports since her postoperative appointment she has progressed with her hip strength and has improving postoperative pain over the last 4 weeks. Denies any increasing pain to the hip unusual swelling drainage or fevers chills. Patient was tested in the emergency department for COVID-19 and was negative. Allergies Allergy/AdvReac Type Severity Reaction Status Date / Time sertraline Allergy Unknown Hives Verified 02/10/20 21:17 Corticosteroids AdvReac Mild STEROID Verified 02/10/20 21:17 (Glucocorticoids) INJECTIONS-NAUSEA,FLUSHING,HIVES Home Medications Home Medications Medication Instructions Recorded Confirmed Type levetiracetam 250 mg tablet 250 mg PO BID #180 tab 05/02/19 02/10/20 Rx duloxetine 30 mg PO QPM 09/23/19 02/10/20 History multivitamin [Daily Multi-Vitamin] 2 tab PO QAM 09/23/19 02/10/20 History simvastatin 40 mg PO QPM 09/27/19 02/10/20 History montelukast 10 mg tablet 10 mg PO QAM #90 tab 12/13/19 02/10/20 Rx aspirin 81 mg PO BID #56 tab 01/12/20 02/10/20 Rx metformin 500 mg tablet 500 mg PO QAM #90 tab 01/17/20 02/10/20 Rx cyclobenzaprine 10 mg tablet 10 mg PO HS PRN #30 tab 02/09/20 02/10/20 Rx acetaminophen 1,000 mg PO Q8 PRN 02/10/20 02/10/20 History albuterol sulfate [Ventolin HFA] 1 - 2 puff INH Q6H PRN 02/10/20 02/10/20 History celecoxib [Celebrex] 200 mg PO BID PRN 02/10/20 02/10/20 History dextran 70-hypromellose (PF) 1 drp OPHTHALMIC (EYE) DIRECTED 02/10/20 02/10/20 History [Artificial Tears (PF)] PRN levothyroxine 50 mcg PO QAM 02/10/20 02/10/20 History oxycodone 5 mg PO .Q4-6HRS PRN MDD 6 TABLETS 02/10/20 02/10/20 History sennosides [Senokot] 17.2 mg PO HS 02/10/20 02/10/20 History valsartan 160 mg PO QAM 02/10/20 02/10/20 History zolpidem 10 mg PO HS PRN 02/10/20 02/10/20 History Patient History Medical History Anxiety Asthma Only using BID inhaler as PRN Degenerative disc disease Depression Hearing deficit 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 Single episode, felt 2/2 dehydration.-NO ISSUES SINCE History of shingles Hyperlipidemia Hypertension Hypothyroid Osteoarthritis Prediabetes ORAL MED Sleep apnea Not currently using CPAP Surgical History History of colonoscopy History of tonsillectomy and adenoidectomy History of total right hip replacement Hx of splenectomy ALSO - TACOS AND APPY AT SAME TIME DUE TO HEREDITARY SPHEROCYTOSIS Hx of tubal ligation Family History Sister Family history of diabetes mellitus Social History Smoking Status: Never smoker Second Hand Exposure: Yes (MOTHER SMOKED); Hx Alcohol Use: Yes Alcohol type: wine Hx Substance Use: No Preferred Language: Slovenian Communication Ability: Effective Floor Cashier Required: No Beliefs That Will Affect Care: None marital status: Current Living Situation: Spouse Other Information That Helps Us Care for You: No Feels Safe at Home: Yes Safety Concerns: Feels Safe At This Time Review of Systems Review of Systems: All systems reviewed & are unremarkable except as noted in HPI & below Constitutional: as per Subjective / HPI Physical Exam 2 Physical Exam: LLE NVSI +EHL/FHL/TA/GS SILT grossly, +2 DP pulse, compartments soft NT, passive and active assistive range of motion without pain. The incision was inspected and was clean dry and intact no erythema, wound dehiscence or drainage. Benign physical exam. Constitutional: WD/WN, vitals as above Results & Data ([facility]) Vital Signs (Past 12 Hours) Vital Signs Temp Pulse Pulse Pulse Resp BP BP 02/11/20 07:25 37.1 C 67 18 100/63 02/11/20 03:09 36.5 C 62 18 115/69 02/11/20 00:51 36.7 C 72 71 16 134/83 02/11/20 00:25 36.7 C 71 16 134/83 02/10/20 23:42 59 L 18 109/59 L 02/10/20 22:37 69 16 110/48 L Pulse Ox Pulse Ox 02/11/20 07:25 92 02/11/20 03:09 94 02/11/20 00:51 97 97 02/11/20 00:25 97 02/10/20 23:42 95 02/10/20 22:37 93 Laboratory Results 02/11/20 02/11/20 02/11/20 Range/Units 08:23 08:23 08:23 WBC 11.27 H (4.8-10.8) K/uL RBC 3.63 L (4.2-5.4) M/uL Hgb 10.5 L (12.0-16.0) g/dL Hct 32.9 L (37-47) % MCV 90.6 (80-100) fL MCH 28.9 (25-34) pg MCHC 31.9 L (32-36) g/dL RDW Std Deviation 44.8 (36.4-46.3) fL RDW Coeff of Bernie 13.5 (11.5-14.5) % Plt Count 548 H (130-400) K/uL MPV 8.8 (7.4-10.4) fL Immature Gran % (Auto) 0.5 % Neut % (Auto) 50.9 % Lymph % (Auto) 36.6 % [place] % (Auto) 9.7 % Eos % (Auto) 1.8 % Baso % (Auto) 0.5 % Neut # (Auto) 5.73 (1.4-6.5) K/uL Lymph # (Auto) 4.13 H (1.2-3.4) K/uL [place] # (Auto) 1.09 H (0.11-0.59) K/uL Eos # (Auto) 0.20 (0-0.5) K/uL Baso # (Auto) 0.06 (0-0.2) K/uL Immature Gran # (Auto) 0.06 H (0.00-0.02) K/uL ESR (0-21) mm/hr PT (9.0-12.0) Seconds INR (0.9-1.1) APTT (21.0-31.0) Seconds PTT Ratio Sodium 142 (136-145) mmol/L Potassium 4.1 (3.5-5.1) mmol/L Chloride 114 H (98-107) mmol/L Carbon Dioxide 21 (21-32) mmol/L Anion Gap 6.0 (3-11) BUN 24 H (7-18) mg/dl Creatinine 0.88 D (0.6-1.2) mg/dl Est Cr Clr Drug Dosing 58.9 Est GFR ( Amer) 79.4 Est GFR (Non-Af Amer) 68.5 BUN/Creatinine Ratio 27.6 H (10-20) Glucose 112 H (70-99) mg/dl Lactate (0.4-2.0) mmol/L Calcium 8.5 D (8.5-10.1) mg/dl Phosphorus (2.5-4.9) mg/dl Magnesium (1.8-2.4) mg/dl Total Bilirubin (0.2-1) mg/dl AST (15-37) U/L ALT (12-78) U/L Alkaline Phosphatase (45-117) U/L Troponin I (0-0.045) ng/ml C-Reactive Protein 1.63 H (0-0.29) mg/dl Total Protein (6.4-8.2) gm/dl Albumin (3.4-5.0) gm/dl Globulin (2.5-4.0) gm/dl Albumin/Globulin Ratio (0.9-2) Lipase (73-393) U/L TSH (0.300-4.500) uIu/ml Urine Color Urine Appearance (Clear) Urine pH (4.5-7.5) Ur Specific [place] (1.000-1.030) Urine Protein (Negative) Urine Glucose (UA) (Negative) Urine Ketones (Negative) Urine Blood (Negative) Urine Nitrite (Negative) Urine Bilirubin (Negative) Urine Urobilinogen (Negative) Ur Leukocyte Esterase (Negative) Urine WBC (Auto) (0-5) /hpf Urine RBC (Auto) (0-4) /hpf U Hyaline Cast (Auto) (0-5) /lpf U Epithel Cells (Auto) (0-5) /lpf Urine Bacteria (Auto) (Negative) Hepatitis C Ab Screen Pending 02/11/20 02/10/20 02/10/20 Range/Units 08:23 21:00 20:06 WBC (4.8-10.8) K/uL RBC (4.2-5.4) M/uL Hgb (12.0-16.0) g/dL Hct (37-47) % MCV (80-100) fL MCH (25-34) pg MCHC (32-36) g/dL RDW Std Deviation (36.4-46.3) fL RDW Coeff of Bernie (11.5-14.5) % Plt Count (130-400) K/uL MPV (7.4-10.4) fL Immature Gran % (Auto) % Neut % (Auto) % Lymph % (Auto) % [place] % (Auto) % Eos % (Auto) % Baso % (Auto) % Neut # (Auto) (1.4-6.5) K/uL Lymph # (Auto) (1.2-3.4) K/uL [place] # (Auto) (0.11-0.59) K/uL Eos # (Auto) (0-0.5) K/uL Baso # (Auto) (0-0.2) K/uL Immature Gran # (Auto) (0.00-0.02) K/uL ESR 12 (0-21) mm/hr PT (9.0-12.0) Seconds INR (0.9-1.1) APTT (21.0-31.0) Seconds PTT Ratio Sodium (136-145) mmol/L Potassium (3.5-5.1) mmol/L Chloride (98-107) mmol/L Carbon Dioxide (21-32) mmol/L Anion Gap (3-11) BUN (7-18) mg/dl Creatinine (0.6-1.2) mg/dl Est Cr Clr Drug Dosing Est GFR ( Amer) Est GFR (Non-Af Amer) BUN/Creatinine Ratio (10-20) Glucose (70-99) mg/dl Lactate 2.5 H* (0.4-2.0) mmol/L Calcium (8.5-10.1) mg/dl Phosphorus (2.5-4.9) mg/dl Magnesium (1.8-2.4) mg/dl Total Bilirubin (0.2-1) mg/dl AST (15-37) U/L ALT (12-78) U/L Alkaline Phosphatase (45-117) U/L Troponin I (0-0.045) ng/ml C-Reactive Protein (0-0.29) mg/dl Total Protein (6.4-8.2) gm/dl Albumin (3.4-5.0) gm/dl Globulin (2.5-4.0) gm/dl Albumin/Globulin Ratio (0.9-2) Lipase (73-393) U/L TSH (0.300-4.500) uIu/ml Urine Color Yellow Urine Appearance Clear (Clear) Urine pH 5.0 (4.5-7.5) Ur Specific [place] > 1.045 H (1.000-1.030) Urine Protein Negative (Negative) Urine Glucose (UA) Negative (Negative) Urine Ketones Negative (Negative) Urine Blood Trace H (Negative) Urine Nitrite Negative (Negative) Urine Bilirubin Negative (Negative) Urine Urobilinogen Negative (Negative) Ur Leukocyte Esterase 1+ H (Negative) Urine WBC (Auto) 10-30 H (0-5) /hpf Urine RBC (Auto) 0-4 (0-4) /hpf U Hyaline Cast (Auto) 1-5 (0-5) /lpf U Epithel Cells (Auto) 5-10 H (0-5) /lpf Urine Bacteria (Auto) Negative (Negative) Hepatitis C Ab Screen 02/10/20 02/10/20 02/10/20 Range/Units 17:33 17:33 17:33 WBC (4.8-10.8) K/uL RBC (4.2-5.4) M/uL Hgb (12.0-16.0) g/dL Hct (37-47) % MCV (80-100) fL MCH (25-34) pg MCHC (32-36) g/dL RDW Std Deviation (36.4-46.3) fL RDW Coeff of Bernie (11.5-14.5) % Plt Count (130-400) K/uL MPV (7.4-10.4) fL Immature Gran % (Auto) % Neut % (Auto) % Lymph % (Auto) % [place] % (Auto) % Eos % (Auto) % Baso % (Auto) % Neut # (Auto) (1.4-6.5) K/uL Lymph # (Auto) (1.2-3.4) K/uL [place] # (Auto) (0.11-0.59) K/uL Eos # (Auto) (0-0.5) K/uL Baso # (Auto) (0-0.2) K/uL Immature Gran # (Auto) (0.00-0.02) K/uL ESR (0-21) mm/hr PT 12.5 H (9.0-12.0) Seconds INR 1.2 H (0.9-1.1) APTT 30.6 (21.0-31.0) Seconds PTT Ratio 1.1 Sodium 139 (136-145) mmol/L Potassium 3.9 (3.5-5.1) mmol/L Chloride 106 (98-107) mmol/L Carbon Dioxide 22 (21-32) mmol/L Anion Gap 11.0 (3-11) BUN 33 H (7-18) mg/dl Creatinine 1.60 H (0.6-1.2) mg/dl Est Cr Clr Drug Dosing Not Reportable Est GFR ( Amer) 38.5 Est GFR (Non-Af Amer) 33.2 BUN/Creatinine Ratio 20.4 H (10-20) Glucose 244 H (70-99) mg/dl Lactate 4.5 H* (0.4-2.0) mmol/L Calcium 10.7 H (8.5-10.1) mg/dl Phosphorus 1.2 L* (2.5-4.9) mg/dl Magnesium 1.8 (1.8-2.4) mg/dl Total Bilirubin 0.7 (0.2-1) mg/dl AST 23 (15-37) U/L ALT 29 (12-78) U/L Alkaline Phosphatase 103 (45-117) U/L Troponin I < 0.015 (0-0.045) ng/ml C-Reactive Protein (0-0.29) mg/dl Total Protein 8.7 H (6.4-8.2) gm/dl Albumin 3.9 (3.4-5.0) gm/dl Globulin 4.8 H (2.5-4.0) gm/dl Albumin/Globulin Ratio 0.8 L (0.9-2) Lipase 189 (73-393) U/L TSH 1.020 (0.300-4.500) uIu/ml Urine Color Urine Appearance (Clear) Urine pH (4.5-7.5) Ur Specific [place] (1.000-1.030) Urine Protein (Negative) Urine Glucose (UA) (Negative) Urine Ketones (Negative) Urine Blood (Negative) Urine Nitrite (Negative) Urine Bilirubin (Negative) Urine Urobilinogen (Negative) Ur Leukocyte Esterase (Negative) Urine WBC (Auto) (0-5) /hpf Urine RBC (Auto) (0-4) /hpf U Hyaline Cast (Auto) (0-5) /lpf U Epithel Cells (Auto) (0-5) /lpf Urine Bacteria (Auto) (Negative) Hepatitis C Ab Screen 02/10/20 Range/Units 17:33 WBC 21.04 H (4.8-10.8) K/uL RBC 4.42 (4.2-5.4) M/uL Hgb 13.4 (12.0-16.0) g/dL Hct 38.9 (37-47) % MCV 88.0 (80-100) fL MCH 30.3 (25-34) pg MCHC 34.4 (32-36) g/dL RDW Std Deviation 42.5 (36.4-46.3) fL RDW Coeff of Bernie 13.3 (11.5-14.5) % Plt Count 685 H (130-400) K/uL MPV 9.0 (7.4-10.4) fL Immature Gran % (Auto) 0.7 % Neut % (Auto) 82.2 % Lymph % (Auto) 8.5 % [place] % (Auto) 8.3 % Eos % (Auto) 0.0 % Baso % (Auto) 0.3 % Neut # (Auto) 17.32 H (1.4-6.5) K/uL Lymph # (Auto) 1.78 (1.2-3.4) K/uL [place] # (Auto) 1.74 H (0.11-0.59) K/uL Eos # (Auto) 0.00 (0-0.5) K/uL Baso # (Auto) 0.06 (0-0.2) K/uL Immature Gran # (Auto) 0.14 H (0.00-0.02) K/uL ESR (0-21) mm/hr PT (9.0-12.0) Seconds INR (0.9-1.1) APTT (21.0-31.0) Seconds PTT Ratio Sodium (136-145) mmol/L Potassium (3.5-5.1) mmol/L Chloride (98-107) mmol/L Carbon Dioxide (21-32) mmol/L Anion Gap (3-11) BUN (7-18) mg/dl Creatinine (0.6-1.2) mg/dl Est Cr Clr Drug Dosing Est GFR ( Amer) Est GFR (Non-Af Amer) BUN/Creatinine Ratio (10-20) Glucose (70-99) mg/dl Lactate (0.4-2.0) mmol/L Calcium (8.5-10.1) mg/dl Phosphorus (2.5-4.9) mg/dl Magnesium (1.8-2.4) mg/dl Total Bilirubin (0.2-1) mg/dl AST (15-37) U/L ALT (12-78) U/L Alkaline Phosphatase (45-117) U/L Troponin I (0-0.045) ng/ml C-Reactive Protein (0-0.29) mg/dl Total Protein (6.4-8.2) gm/dl Albumin (3.4-5.0) gm/dl Globulin (2.5-4.0) gm/dl Albumin/Globulin Ratio (0.9-2) Lipase (73-393) U/L TSH (0.300-4.500) uIu/ml Urine Color Urine Appearance (Clear) Urine pH (4.5-7.5) Ur Specific [place] (1.000-1.030) Urine Protein (Negative) Urine Glucose (UA) (Negative) Urine Ketones (Negative) Urine Blood (Negative) Urine Nitrite (Negative) Urine Bilirubin (Negative) Urine Urobilinogen (Negative) Ur Leukocyte Esterase (Negative) Urine WBC (Auto) (0-5) /hpf Urine RBC (Auto) (0-4) /hpf U Hyaline Cast (Auto) (0-5) /lpf U Epithel Cells (Auto) (0-5) /lpf Urine Bacteria (Auto) (Negative) Hepatitis C Ab Screen Diagnostic Findings SINGLE VIEW PELVIS; 2 VIEWS LEFT HIP CLINICAL HISTORY: Infection. FINDINGS: An AP view of the pelvis with AP and frog-leg views of the left hip are compared to study dated 01/12/2020 and correlated with pelvic CT performed the same day 02/10/2020. The skeletal structures are osteopenic. There is no radiographic evidence of fracture involving the hips or bony pelvis. Bilateral hip arthroplasties are in near-anatomic alignment. No periprosthetic lucency is identified. Minimal degenerative change is seen in the sacroiliac joints. There is mild lumbosacral spondylosis. Mild soft tissue edema and foci of soft tissue gas overly the left hip. Excreted IV contrast fills the bladder. There is no bowel obstruction. IMPRESSION: No osseous abnormality is identified. The soft tissue findings were much better assessed on today's pelvic CT. CT ANGIOGRAM OF THE CHEST; CT SCAN OF THE ABDOMEN AND PELVIS WITH IV CONTRAST CLINICAL HISTORY: Atypical chest pain. Fever. Generalized abdominal pain. COMPARISON STUDY: Chest x-ray dated 02/10/2020. Pelvic radiograph dated 01/12/2020. TECHNIQUE: Following the IV administration of 118 of Optiray 320, CT angiogram of the chest is performed from the upper abdomen to the thoracic inlet utilizing the pulmonary embolus protocol. Images are reviewed in the axial, sagittal, coronal planes. 3-D MIPS images are created and assessed. Subsequently, CT scan of the abdomen and pelvis was performed from the lung bases to the proximal femora. Images are reviewed in the axial, sagittal, and coronal planes. IV contrast was administered without complication. A dose lowering technique was utilized adhering to the principles of ALARA. CT DOSE: 683.43 mGy.cm FINDINGS: CHEST: Thyroid: Imaged portions of the thyroid gland are normal in size and attenuation. Thoracic aorta: There is mild atherosclerotic calcification of the thoracic aorta, which is normal in caliber and demonstrates standard 3-vessel arch anatomy. No dissection is seen. Pulmonary vasculature: The pulmonary trunk is normal in caliber. There are no filling defects identified in the main, lobar, or segmental pulmonary arteries to indicate pulmonary embolus. Heart: The heart is normal in size and configuration, and without pericardial effusion. Lungs and pleural spaces: There is no airspace consolidation or pleural effusion. Dependent atelectasis is noted at the lung bases. The trachea and central airways are clear. Mild diffuse peribronchial thickening is observed. Mediastinum: There is no mediastinal lymphadenopathy. Claudia: Clear. Axillae: There is no axillary lymphadenopathy. Bony thorax: The skeletal structures are osteopenic. Degenerative change is noted throughout the thoracic spine. No lytic or blastic lesions are identified. ABDOMEN AND PELVIS: Liver: The contrast-enhanced liver is normal in size, contour, and attenuation. There is mild intrahepatic or ductal dilatation. The hepatic veins and portal veins are patent. Gallbladder: Surgically absent. Spleen: The spleen is not identified and presumed surgically absent. Pancreas: Mildly atrophic and grossly unremarkable. Adrenal glands: Unremarkable. Kidneys: The contrast enhanced kidneys are normal in size and without hydronephr osis. The kidneys enhance symmetrically. Foci of parenchymal scarring are noted in the upper pole of the left kidney. A calyceal diverticulum is suspected. Abdominal vasculature: The abdominal aorta is normal in course and caliber noting mild atherosclerotic calcification. Bowel: There is no bowel obstruction. Focal narrowing is seen in the distal transverse colon on image #207. The appendix is well-visualized and normal. Peritoneum: There is no intraperitoneal free air or abdominal ascites. There is a small fat-containing umbilical hernia. Lymphadenopathy: None. Pelvic viscera: Evaluation of the pelvis is significantly degraded by streak artifact from bilateral hip arthroplasties. The bladder wall appears thickened and hyperemic. The endometrium appears thickened for age, measuring up to 7 mm. No adnexal lesion is identified. Skeletal structures: The skeletal structures are osteopenic. There is mild to moderate lumbosacral spondylosis. No lytic or blastic lesions are seen. Bila teral hip arthroplasties are in place. Soft tissue edema overlies the left hip. There is a gas and fluid containing collection identified in the left upper thigh anterior to the femoral trochanters. This is best seen on image #414 and measures at least 5.5 x 4 x 2.5 cm. IMPRESSION: 1. There is no evidence of pulmonary embolus in the main, lobar, or segmental pulmonary arteries. 2. There is no airspace consolidation or pleural effusion. 3. Mild diffuse peribronchial thickening suggests bronchitis/reactive airway disease. Clinical correlation will be required. 4. There is an approximately 5.5 x 4 x 2.5 cm peripherally enhancing gas and fluid containing fluid collection in the left upper thigh anterior to the trochanters of the left femur. This is atypical for expected postoperative nadeen nge and concerning for developing abscess. Clinical correlation will be essential. 5. The bladder wall appears circumferential thickened and hyperemic. Correlate clinically and with urinalysis for evidence of cystitis. 6. The endometrium appears thickened for age. This is not well evaluated by CT. Nonemergent gynecology follow-up and pelvic ultrasound is recommended for further assessment. 7. There is focal narrowing identified in the distal transverse colon which likely resents underdistention. If not recently performed, follow-up with outpatient colostomy is recommended for further assessment. 8. The spleen is not identified and presumed surgically absent. 9. Additional findings as above.
--- NOTE | 2020-02-11 10:58 | Hospitalist Progress Note ---
Date of Service February 11, 2020 Assessment & Plan Admission and Anticipated Discharge Date Admission Date: February 10, 2020 64 yo Female w/ pMHx. seizure, OA, hypothyroidism, HTN, hearing loss, DM, carotid artery disease presented with symptoms of dizziness, lightheadedness, and cough since Thursday. Found to be septic of unclear etiology although post operative abscess is the most likely culprits at this point, although given that the patient is asplenic and typically has an elevated white count, there may not be an infective process at play. Sepsis Differential including left hip abscess although initially concern bronchitis, cystitis associated with acute kidney injury; although the patient is without urinary symptoms - WBC 21, Lactate 2.5, normal heart rate - Place on daptomycin IV and Zosyn IV. - Follow cultures - NSS at 80 mils per hour. Concern for L hip abscess - CTA/P w/ ? developing abscess - Orthopedics consulted and plan for intra articular aspiration of left hip Bronchitis, concern - CXR: no active disease - CT chest: bronchitis/RAD, w/ history of asthma - continue to evaluate Hypertension - Blood pressure is borderline low initially, 100/63 this AM - We will hold valsartan, and continue to monitor Diabetes mellitus type 2, controlled: - Hold metformin. - Patient Accu-Cheks before meals and at bedtime with NovoLog coverage per scale Hypophosphatemia - Received 9 mmol K-Phos in the ED. - Place on 30 mmol IV, repeat laboratories serially Acute kidney insufficiency - Creatinine 1.60 on admission with range 0.71-0.90. - Follow labs serially Seizure, epileptic - Continue Keppra 250 mg p.o. twice daily Hypothyroidism - Continue levothyroxine sodium 50 mcg every morning Thickened endometrium on CT - will require follow up with [employer]CH[employer] DVT: Heparin Code: full Supervising Physician Co-Signing Physician Notes I personally examined the patient and verified all myers points of history and exam, discussed case, and agree with decision making with Dr Prieto. feeling reasonably OK. has a loose "yes" to many ROS but in very minor shades of severity - such as "yes" to sob - but more in the context that she was feeling dizzy and then breathing hard. in regards to urinary sx not having acute sx but relates having many prior UTIs but in context of also having been told that back pain of 2 months duration was a kidney infection at one time. context not clear for these. no f/c/s. not really much hip pain. vitals noted nad heent nc at mmm breathing unlabored no accessory muscles good effort no conversational dyspnea. L hip incision c/d/i, palpable but only minimally tender area of fluctuance under incision without any significant erythema sepsis appearance -unclear etiology (if any) -- pulmonary quite unlikely - CT just w bronchial thickening but no dyspnea/cough/etc. no urinary sx. blood cultures are pending but would suspect w asplenia that she would be more ill were she to be bacteremic. no diarrhea. hip fluid collection seen on imaging but really without any significant pain. agree w ortho plans to aspirate fluid for completeness - mina given no other clear areas for infection and given her asplenic state certainly raising risk. at the same time, her asplenic state w such a high WBC but a relative paucity of even constitutional sx makes me suspect on true sepsis at all. high risk to decompensate w asplenia - so continue empiric abx while following clinically/allowing time for culture growth/getting aspiration, but w WBC abruptly falling, w Cr 1.6 --> normal overnight, CRP only 1.6 -- much more suspicious that something nonspecific was at play, or perhaps dehydration (hemoconcentration raising WBC, dehydration/orthostasis accounting for a lot of her sx, hypoperfusion from low fluid volume accounting for lactate/creatinine) -continue to follow -appreciate ortho input. Subjective This morning we discussed that she had dizziness, lightheadedness and cough since thursday. She explained that she has a history of Asthma and over the last week has used her albuterol inhaler 1-2 times, has not been awakened by her asthma and feels that her asthma is well controlled. Review of Systems Review of Systems: Constitutional: denies fever, chills Cardiac: denies chest pain, palpitations Pulm: admits cough w/o sputum production Neuro: admits headache, similar to prior headaches : denies urinary symptoms Physical Exam Constitutional: WD/WN, vitals as above Eyes: PERRL, conjunctivae normal, anicteric sclerae ENMT: external ear and nose normal, oropharynx normal Neck: normal visual inspection Respiratory: - no increased work of breathing - able to speak in full sentences w/o difficulty - good air movement - slight crackle/course breath sounds bilaterally - no wheeze Cardiovascular: RRR, no murmur, no edema Skin: - left hip w/ warmth and some swelling, no appreciable erythema - overlying the anterior proximal femur/hip joint Psychiatric: Orientation: alert and oriented x 3 Affect: euthymic affect Results & Data Results & Data ([facility]) Vital Signs (Past 12 Hours) Vital Signs Temp Pulse Pulse Resp BP BP Pulse Ox 02/11/20 09:00 70 02/11/20 07:25 37.1 C 67 18 100/63 92 02/11/20 03:09 36.5 C 62 18 115/69 94 02/11/20 00:51 36.7 C 72 71 16 134/83 97 02/11/20 00:25 36.7 C 71 16 134/83 97 02/10/20 23:42 59 L 18 109/59 L 95 Pulse Ox 02/11/20 09:00 02/11/20 07:25 02/11/20 03:09 02/11/20 00:51 97 02/11/20 00:25 02/10/20 23:42 CBC Results Results Complete Blood Count Results: RBC 3.63 M/uL (4.2-5.4) L 02/11/20 WBC 11.27 K/uL (4.8-10.8) H 02/11/20 Hgb 10.5 g/dL (12.0-16.0) L 02/11/20 Hct 32.9 % (37-47) L 02/11/20 Plt Count 548 K/uL (130-400) H 02/11/20 Chemistry (BMP) Results BMP Results: Sodium 142 mmol/L (136-145) 02/11/20 Potassium 4.1 mmol/L (3.5-5.1) 02/11/20 Chloride 114 mmol/L (98-107) H 02/11/20 BUN 24 mg/dl (7-18) H 02/11/20 Creatinine 0.88 mg/dl (0.6-1.2) 02/11/20 Glucose 112 mg/dl (70-99) H 02/11/20 Resident Activity Tracking Resident Involvement: Resident Care Provided Care Provided: Adult [facility] Medicine
--- NOTE | 2020-02-11 18:06 | Billing Data ---
Date of Service February 11, 2020 Coding Level of Care Code 49498 Subseq Hosp Care Lvl 3
[2020-02-11] MEDS: SENNA 8.6 MG TAB PO SCH (20:25)
[2020-02-11] MEDS: SIMVASTATIN 40 MG TAB PO SCH (20:25)
[2020-02-11] MEDS: DULOXETINE HCL 30 MG CAP PO SCH (20:26)
[2020-02-12] MEDS: DAPTOmycin 250 MG in SYRINGE 0 ML IV SCH (00:49)
[2020-02-12] MEDS: PIPERACILLIN/TAZOBACTAM 3.375 GM in DEXTROSE 5% 100 ML IV SCH ×3 (02:01→17:30)
[2020-02-12] MEDS: SODIUM CHLORIDE 0.9% 1000ML 1,000 ML IV SCH ×2 (02:02→14:30)
[2020-02-12] MEDS: LEVOTHYROXINE SODIUM 50 MCG TABLET PO SCH (06:27)
[2020-02-12 06:39] LABS: Hemoglobin 10.9 g/dL (12.0-16.0); Mean Corpuscular Hemoglobin 28.8 pg (25-34); Mean Corpuscular Hgb Conc 32.1 g/dL (32-36); Mean Corpuscular Volume 89.7 fL (80-100); Mean Platelet Volume 9.1 fL (7.4-10.4); Platelet Count 532 K/uL (130-400); RDW Coefficient of Variation 13.3 % (11.5-14.5); RDW Standard Deviation 43.5 fL (36.4-46.3); Red Blood Count 3.79 M/uL (4.2-5.4); White Blood Count 10.98 K/uL (4.8-10.8)
[2020-02-12 07:11] LABS: BUN Creatinine Ratio 18.7 (10-20); C Reactive Protein 1.34 mg/dl (0-0.29); Calcium 9.1 mg/dl (8.5-10.1); Creatinine Clr Calc Pharmacy 68.2 ml/min; Est GFR (African American) 94.7; Est GFR (Non-African American) 81.7; Potassium 3.9 mmol/L (3.5-5.1)
[2020-02-12 07:15] LABS: Basophils # (auto) 0.13 K/uL (0-0.2); Basophils % (auto) 1.2 %; Eosinophils # (auto) 0.37 K/uL (0-0.5); Eosinophils % (auto) 3.4 %; Immature Granulocytes # (auto) 0.06 K/uL (0.00-0.02); Immature Granulocytes % (auto) 0.5 %; Lymphocytes # (auto) 5.13 K/uL (1.2-3.4); Lymphocytes % (auto) 46.7 %; Monocytes # (auto) 0.97 K/uL (0.11-0.59); Monocytes % (auto) 8.8 %; Neutrophils # (auto) 4.32 K/uL (1.4-6.5); Neutrophils % (auto) 39.4 %; Spherocytes 2+
[2020-02-12] MEDS: ASPIRIN 81 MG ECTAB PO SCH ×2 (08:06→20:24)
[2020-02-12] MEDS: MONTELUKAST SODIUM 10 MG TABLET PO SCH (08:06)
[2020-02-12] MEDS: levETIRAcetam 250 MG TAB PO SCH ×2 (08:06→20:24)
[2020-02-12] MEDS: HEPARIN SOD 5,000 UNIT/0.5 ML VIAL SQ SCH ×2 (08:06→20:24)
[2020-02-12] MEDS: VALSARTAN 80 MG TAB PO SCH (08:06)
[2020-02-12] MEDS: MULTIVITAMIN TAB PO SCH (08:06)
--- NOTE | 2020-02-12 10:04 | Orthopedic Progress Note ---
Date of Service February 12, 2020 Assessment & Plan Admission and Anticipated Discharge Date Admission Date: February 10, 2020 64 yo female admitted with probable sepsis, origin unknown, await CT guided aspiration seroma left hip Subjective Pt resting in bed, appears comfortable, denies pain Physical Exam Physical Exam: Left anterior hip incision benign, mild tenderness lateral hip Results & Data ([facility]) Vital Signs (Past 12 Hours) Vital Signs Temp Pulse Pulse Resp BP Pulse Ox 02/12/20 09:00 69 02/12/20 07:24 37.1 C 69 16 129/72 97 02/11/20 23:26 74 02/11/20 22:39 37.3 C 70 18 126/78 95 Laboratory Results 02/12/20 02/12/20 02/11/20 Range/Units 05:59 05:59 08:23 WBC 10.98 H (4.8-10.8) K/uL RBC 3.79 L (4.2-5.4) M/uL Hgb 10.9 L (12.0-16.0) g/dL Hct 34.0 L (37-47) % MCV 89.7 (80-100) fL MCH 28.8 (25-34) pg MCHC 32.1 (32-36) g/dL RDW Std Deviation 43.5 (36.4-46.3) fL RDW Coeff of Bernie 13.3 (11.5-14.5) % Plt Count 532 H (130-400) K/uL MPV 9.1 (7.4-10.4) fL Immature Gran % (Auto) 0.5 % Neut % (Auto) 39.4 % Lymph % (Auto) 46.7 % [place] % (Auto) 8.8 % Eos % (Auto) 3.4 % Baso % (Auto) 1.2 % Neut # (Auto) 4.32 (1.4-6.5) K/uL Lymph # (Auto) 5.13 H (1.2-3.4) K/uL [place] # (Auto) 0.97 H (0.11-0.59) K/uL Eos # (Auto) 0.37 (0-0.5) K/uL Baso # (Auto) 0.13 (0-0.2) K/uL Immature Gran # (Auto) 0.06 H (0.00-0.02) K/uL Blood Smear Review Pending Spherocytes 2+ Sodium 144 (136-145) mmol/L Potassium 3.9 (3.5-5.1) mmol/L Chloride 114 H (98-107) mmol/L Carbon Dioxide 25 (21-32) mmol/L Anion Gap 5.0 (3-11) BUN 14 (7-18) mg/dl Creatinine 0.76 (0.6-1.2) mg/dl Est Cr Clr Drug Dosing 68.2 ml/min Est GFR ( Amer) 94.7 Est GFR (Non-Af Amer) 81.7 BUN/Creatinine Ratio 18.7 (10-20) Glucose 139 H (70-99) mg/dl Calcium 9.1 (8.5-10.1) mg/dl C-Reactive Protein 1.34 H (0-0.29) mg/dl Hepatitis C Ab Screen Neg (Neg)
--- NOTE | 2020-02-12 15:48 | Hospitalist Progress Note ---
Date of Service February 12, 2020 Assessment & Plan Admission and Anticipated Discharge Date Admission Date: February 10, 2020 64 yo Female w/ pMHx. seizure, OA, hypothyroidism, HTN, hearing loss, DM, carotid artery disease presented with symptoms of dizziness, lightheadedness, and cough since Thursday. Found to be septic of unclear etiology although post operative abscess is the most likely culprits at this point, although given that the patient is asplenic and typically has an elevated white count, there may not be an infective process at play. Sepsis Differential including left hip abscess although initially concern bronchitis, cystitis associated with acute kidney injury have been ruled out with negative urine culture and bronchitis as below. - WBC 10.98, Lactate 2.5, normal heart rate, CRP downtrending 1.34 today - Place on Daptomycin IV and Zosyn IV, will narrow with cultures - Follow cultures - NSS at 80 mils per hour. Concern for L hip abscess - CTA/P w/ ?developing abscess vs. seroma - Orthopedics consulted and plan for intra articular CT guided aspiration of left hip - will follow stains and cultures post procedure Bronchitis, concern - continue to evaluate although we think that this is less likely given reassuring physical exam, only slight increase in CRP and symptoms predominately weakness and less related to cough or shortness of breath - CXR: no active disease - CT chest: bronchitis vs. RAD, w/ history of asthma Hypertension - Blood pressure is borderline low initially, 100/63 this AM - We will hold valsartan, and continue to monitor Diabetes mellitus type 2, controlled: - Hold metformin. - Patient Accu-Cheks before meals and at bedtime with NovoLog coverage per scale Hypophosphatemia - Received 9 mmol K-Phos in the ED. - repeat laboratories serially Asthma - well controlled on home meds Acute kidney insufficiency - Creatinine 1.60 on admission with range 0.71-0.90. - Follow labs serially Seizure, epileptic - Continue Keppra 250 mg p.o. twice daily Hypothyroidism - Continue levothyroxine sodium 50 mcg every morning Thickened endometrium on CT - will require follow up with [employer] DVT: Heparin Code: full Supervising Physician Co-Signing Physician Notes I personally examined the patient and verified all myers points of history and exam, discussed case, and agree with decision making with Dr Prieto. feeling better overall. hip hurts a little but still not a dominant picture. no other new complaints. vitals noted nad heent nc at mmm breathing unlabored no accessory muscles good effort no conversational dyspnea. L hip incision c/d/i, palpable but only minimally tender area of fluctuance under incision without any significant erythema - essentially identical to yesterday sepsis appearance -starting to doubt actual sepsis - more likely hemoconcentration from dehydration // jumped white count partly concentration partly possibly related to asplenic state -- as far as possible sources for actual sepsis -- pulmonary quite unlikely - CT just w bronchial thickening but no dyspnea/cough/etc. no urinary sx. blood cultures are no growth to date and would suspect w asplenia that she would be more ill were she to be bacteremic. no diarrhea. hip fluid collection seen on imaging but really without any significant pain on presentation, and current pain well within expected range for about a month post op with a possible seroma. aspirate fluid for completeness - mina given no other clear areas for infection and given her asplenic state certainly raising risk. at the same time, her asplenic state w such a high WBC but a relative paucity of even constitutional sx makes me suspect on true sepsis at all. discussed risks/benefits and alternative approaches for eval and management with pt and she prefers this approach overall. -continue to follow -appreciate ortho input. Subjective Doing well today, we reviewed her improved labs and brought up that it is possible that she had a abnormally high white count that was secondary to dehydration and hemoconcentration. She would like to have the aspiration of the hip to know definitively if she has an infection at her operative site. Review of Systems Review of Systems: Constitutional: denies fever, chills Cardiac: denies chest pain, palpitations Pulm: admits cough w/o sputum production Neuro: admits headache, similar to prior headaches : denies urinary symptoms Physical Exam Constitutional: WD/WN, vitals as above Eyes: PERRL, conjunctivae normal, anicteric sclerae ENMT: external ear and nose normal, oropharynx normal Neck: normal visual inspection Cardiovascular: RRR, no murmur, no edema Psychiatric: Orientation: alert and oriented x 3 Affect: euthymic affect Results & Data Results & Data ([facility]) Vital Signs (Past 12 Hours) Vital Signs Temp Pulse Pulse Resp BP Pulse Ox 02/12/20 15:32 37.1 C 77 18 143/76 H 95 02/12/20 15:20 78 02/12/20 11:33 36.7 C 77 18 149/74 H 95 02/12/20 09:00 69 02/12/20 07:24 37.1 C 69 16 129/72 97 CBC Results Results Complete Blood Count Results: RBC 3.79 M/uL (4.2-5.4) L 02/12/20 WBC 10.98 K/uL (4.8-10.8) H 02/12/20 Hgb 10.9 g/dL (12.0-16.0) L 02/12/20 Hct 34.0 % (37-47) L 02/12/20 Plt Count 532 K/uL (130-400) H 02/12/20 Chemistry (BMP) Results BMP Results: Sodium 144 mmol/L (136-145) 02/12/20 Potassium 3.9 mmol/L (3.5-5.1) 02/12/20 Chloride 114 mmol/L (98-107) H 02/12/20 BUN 14 mg/dl (7-18) 02/12/20 Creatinine 0.76 mg/dl (0.6-1.2) 02/12/20 Glucose 139 mg/dl (70-99) H 02/12/20 Resident Activity Tracking Resident Involvement: Resident Care Provided Care Provided: Adult Hospital Medicine
--- NOTE | 2020-02-12 17:17 | Billing Data ---
Date of Service February 12, 2020 Coding Level of Care Code 47547 Subseq Hosp Care Lvl 3
--- NOTE | 2020-02-12 17:17 | Billing Data ---
Date of Service February 12, 2020 Coding Level of Care Code 91947 Subseq Hosp Care Lvl 3
[2020-02-12] MEDS: DULOXETINE HCL 30 MG CAP PO SCH (20:23)
[2020-02-12] MEDS: SIMVASTATIN 40 MG TAB PO SCH (20:25)
[2020-02-12] MEDS: SENNA 8.6 MG TAB PO SCH (20:25)
[2020-02-12] MEDS: ZOLPIDEM TARTRATE 10 MG TAB PO PRN (23:27)
[2020-02-13] MEDS: DAPTOmycin 250 MG in SYRINGE 0 ML IV SCH (00:50)
[2020-02-13] MEDS: PIPERACILLIN/TAZOBACTAM 3.375 GM in DEXTROSE 5% 100 ML IV SCH ×3 (01:31→17:30)
[2020-02-13] MEDS: SODIUM CHLORIDE 0.9% 1000ML 1,000 ML IV SCH ×2 (01:33→15:32)
[2020-02-13] MEDS: LEVOTHYROXINE SODIUM 50 MCG TABLET PO SCH (06:08)
[2020-02-13 06:30] LABS: Basophils # (auto) 0.11 K/uL (0-0.2); Basophils % (auto) 0.9 %; Eosinophils # (auto) 0.32 K/uL (0-0.5); Eosinophils % (auto) 2.7 %; Hematocrit (blood only) 35.1 % (37-47); Hemoglobin 11.3 g/dL (12.0-16.0); Immature Granulocytes # (auto) 0.07 K/uL (0.00-0.02); Immature Granulocytes % (auto) 0.6 %; Lymphocytes # (auto) 4.44 K/uL (1.2-3.4); Lymphocytes % (auto) 37.7 %; Mean Corpuscular Hemoglobin 28.8 pg (25-34); Mean Corpuscular Hgb Conc 32.2 g/dL (32-36); Mean Corpuscular Volume 89.5 fL (80-100); Mean Platelet Volume 9.2 fL (7.4-10.4); Monocytes # (auto) 1.14 K/uL (0.11-0.59); Monocytes % (auto) 9.7 %; Neutrophils # (auto) 5.71 K/uL (1.4-6.5); Neutrophils % (auto) 48.4 %; Platelet Count 516 K/uL (130-400); RDW Coefficient of Variation 13.4 % (11.5-14.5); RDW Standard Deviation 43.3 fL (36.4-46.3); Red Blood Count 3.92 M/uL (4.2-5.4); White Blood Count 11.79 K/uL (4.8-10.8)
[2020-02-13 07:09] LABS: BUN Creatinine Ratio 12.2 (10-20); Calcium 9.6 mg/dl (8.5-10.1); Creatinine Clr Calc Pharmacy 60.2 ml/min; Est GFR (African American) 81.6; Est GFR (Non-African American) 70.4; Potassium 3.7 mmol/L (3.5-5.1)
[2020-02-13 07:10] LABS: C Reactive Protein 1.14 mg/dl (0-0.29); Phosphorus 3.3 mg/dl (2.5-4.9)
[2020-02-13] MEDS: HEPARIN SOD 5,000 UNIT/0.5 ML VIAL SQ SCH (09:29)
[2020-02-13] MEDS: VALSARTAN 80 MG TAB PO SCH (09:31)
[2020-02-13] MEDS: MONTELUKAST SODIUM 10 MG TABLET PO SCH (09:32)
[2020-02-13] MEDS: MULTIVITAMIN TAB PO SCH (09:32)
[2020-02-13] MEDS: levETIRAcetam 250 MG TAB PO SCH ×2 (09:32→21:07)
[2020-02-13] MEDS: ASPIRIN 81 MG ECTAB PO SCH (09:32)
--- NOTE | 2020-02-13 12:06 | Orthopedic Progress Note ---
Date of Service February 13, 2020 Assessment & Plan (1) History of total hip arthroplasty: Trend inflammatory labs, continues to remain afebrile, will follow up with hip aspiration results once completed. WBAT LLE. PT/OT. Admission and Anticipated Discharge Date Admission Date: February 10, 2020 Subjective Patient seen this a.m. resting in bed, comfortable, no acute issues. Pain well controlled. Denies F/C/N/V/SOB/CP. Review of Systems Review of Systems: All systems reviewed & are unremarkable except as noted in HPI & below Constitutional: as per Subjective / HPI Physical Exam Physical Exam: LLE NVSI +EHL/FHL/TA/GS SILT grossly, +2 DP pulse, compartments soft NT, incision cdi Constitutional: WD/WN, vitals as above Results & Data ([facility]) Vital Signs (Past 12 Hours) Vital Signs Temp Pulse Pulse Resp BP Pulse Ox 02/13/20 11:44 36.7 C 69 20 131/79 93 02/13/20 07:38 63 02/13/20 07:34 36.9 C 69 20 147/78 H 92 02/13/20 00:21 71 Laboratory Results 02/13/20 02/13/20 02/12/20 Range/Units 06:02 06:02 05:59 WBC 11.79 H (4.8-10.8) K/uL RBC 3.92 L (4.2-5.4) M/uL Hgb 11.3 L (12.0-16.0) g/dL Hct 35.1 L (37-47) % MCV 89.5 (80-100) fL MCH 28.8 (25-34) pg MCHC 32.2 (32-36) g/dL RDW Std Deviation 43.3 (36.4-46.3) fL RDW Coeff of Bernie 13.4 (11.5-14.5) % Plt Count 516 H (130-400) K/uL MPV 9.2 (7.4-10.4) fL Immature Gran % (Auto) 0.6 % Neut % (Auto) 48.4 % Lymph % (Auto) 37.7 % [place] % (Auto) 9.7 % Eos % (Auto) 2.7 % Baso % (Auto) 0.9 % Neut # (Auto) 5.71 (1.4-6.5) K/uL Lymph # (Auto) 4.44 H (1.2-3.4) K/uL [place] # (Auto) 1.14 H (0.11-0.59) K/uL Eos # (Auto) 0.32 (0-0.5) K/uL Baso # (Auto) 0.11 (0-0.2) K/uL Immature Gran # (Auto) 0.07 H (0.00-0.02) K/uL Blood Smear Review Sodium 143 (136-145) mmol/L Potassium 3.7 (3.5-5.1) mmol/L Chloride 110 H (98-107) mmol/L Carbon Dioxide 25 (21-32) mmol/L Anion Gap 8.0 (3-11) BUN 10 (7-18) mg/dl Creatinine 0.86 (0.6-1.2) mg/dl Est Cr Clr Drug Dosing 60.2 ml/min Est GFR ( Amer) 81.6 Est GFR (Non-Af Amer) 70.4 BUN/Creatinine Ratio 12.2 (10-20) Glucose 119 H (70-99) mg/dl Calcium 9.6 (8.5-10.1) mg/dl Phosphorus 3.3 (2.5-4.9) mg/dl C-Reactive Protein 1.14 H (0-0.29) mg/dl
--- NOTE | 2020-02-13 12:36 | Electrocardiogram Report ---
Test Reason : Blood Pressure : / mmHG Vent. Rate : 090 BPM Atrial Rate : 090 BPM P-R Int : 166 ms QRS Dur : 100 ms QT Int : 358 ms P-R-T Axes : 078 032 118 degrees QTc Int : 437 ms Sinus rhythm with occasional Premature ventricular complexes Septal infarct (cited on or before 20-JUN-2010) Abnormal ECG When compared with ECG of 28-SEP-2019 11:11, Premature ventricular complexes are now Present Confirmed by Farhad Glez ([id number]) on 02/13/2020 12:36:05 PM Referred By: REFERRED SELF Confirmed By:Farhad Glez
--- NOTE | 2020-02-13 12:39 | Hospitalist Progress Note ---
Date of Service February 13, 2020 Assessment & Plan Admission and Anticipated Discharge Date Admission Date: February 10, 2020 64 yo Female w/ pMHx. seizure, OA, hypothyroidism, HTN, hearing loss, DM, carotid artery disease presented with symptoms of dizziness, lightheadedness, and cough since Thursday. Found to be septic of unclear etiology although post operative abscess is the most concerning culprit at this point. Given that the patient is asplenic and typically has an elevated white count, there may not be an infective process at play. Concern of Sepsis Differential including possible left hip abscess although initially concern for bronchitis or cystitis w/ associated acute kidney injury these have been ruled out with negative urine culture and bronchitis less likely with clinical presentation. - WBC 10.98, Lactate 2.5, normal heart rate, CRP downtrending 1.34 today - Place on Daptomycin IV and Zosyn IV, will narrow with cultures - Follow cultures - NSS at 80 mils per hour. L hip abscess vs. seroma - CTA/P w/ ?developing abscess vs. seroma - Orthopedics consulted and performed intra articular CT guided aspiration of left hip - will follow stains and cultures post procedure Hypertension - Blood pressure is borderline low initially - holding valsartan, and continue to monitor Diabetes mellitus type 2, controlled: - Holding metformin. - Patient Accu-Cheks before meals and at bedtime with NovoLog coverage per scale Hypophosphatemia (resolved) - Received 9 mmol K-Phos in the ED. - repeat today 3.3 Asthma - well controlled on home meds Acute kidney insufficiency - Creatinine 1.60 on admission with range 0.71-0.90. - Follow labs serially Seizure, epileptic - Continue Keppra 250 mg p.o. 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 Prieto and agree with the findings and care plan. Subjective Patient was doing good this morning. We discussed the plan to go forward with the aspiration of her left hip. She had no questions for me. Review of Systems Review of Systems: Constitutional: denies fever, chills Cardiac: denies chest pain, palpitations Pulm: admits cough w/o sputum production Neuro: admits headache, similar to prior headaches : denies urinary symptoms Physical Exam Constitutional: WD/WN, vitals as above Eyes: PERRL, conjunctivae normal, anicteric sclerae ENMT: external ear and nose normal, oropharynx normal Neck: normal visual inspection Cardiovascular: RRR, no murmur, no edema Skin: - slight tenderness of left anterior hip with swelling and no erythema Psychiatric: Orientation: alert and oriented x 3 Affect: euthymic affect Results & Data Results & Data ([facility]) Vital Signs (Past 12 Hours) Vital Signs Temp Pulse Pulse Resp BP Pulse Ox 02/13/20 11:44 36.7 C 69 20 131/79 93 02/13/20 07:38 63 02/13/20 07:34 36.9 C 69 20 147/78 H 92 CBC Results Results Complete Blood Count Results: RBC 3.75 M/uL (4.2-5.4) L 02/14/20 WBC 12.25 K/uL (4.8-10.8) H 02/14/20 Hgb 10.6 g/dL (12.0-16.0) L 02/14/20 Hct 33.4 % (37-47) L 02/14/20 Plt Count 473 K/uL (130-400) H 02/14/20 Chemistry ([facility]) Results [facility] Results: Sodium 144 mmol/L (136-145) 02/14/20 Potassium 3.6 mmol/L (3.5-5.1) 02/14/20 Chloride 112 mmol/L (98-107) H 02/14/20 BUN 11 mg/dl (7-18) 02/14/20 Creatinine 0.76 mg/dl (0.6-1.2) 02/14/20 Glucose 118 mg/dl (70-99) H 02/14/20 Resident Activity Tracking Resident Involvement: Resident Care Provided Care Provided: Adult [facility]
--- NOTE | 2020-02-13 15:42 | Ultrasound Report ---
US asp mjr jnt sh,hip,kn LT ULTRASOUND-GUIDED FINE-NEEDLE ASPIRATION THYROID CLINICAL HISTORY: Small air and fluid-filled collection adjacent to the left hip with recent arthropl asty. COMPARISON STUDY: CT abdomen pelvis 02/10/2020. PROCEDURE: The risks, benefits, and alternatives to the procedure were discussed with the patient. Wr anisaen informed consent was obtained. The patient was placed supine in ultrasound, and the soft tissue s adjacent to the left hip were localized by ultrasound and selected for fine needle aspiration. The left upper thigh was prepped and draped in the usual sterile fashion. 1% lidocaine was used for local anesthesia. The complex air and debris-filled collection was aspirated under ultrasound guidance uti lizing 18 and 20-gauge needles. Minimal fluid was able to be aspirated secondary to the complexity of the debris. 1-2 ml of serosanguineous fluid was extracted from the collection and sent to the dilip fan for analysis. The patient tolerated the procedure well and left the department in satisfactory c ondition. IMPRESSION: Completed aspiration of a left anterior upper thigh complex collection.. ACT 112: Negative or not required by law. The above report was generated using voice recognition software. It may contain grammatical, syntax o r spelling errors. Electronically signed by: Theodore Hernandez M.D. 02/13/2020 3:40 PM
[2020-02-13 17:49] LABS: Appearance Synovial Fluid BLOODY; Color Synovial Fluid RED; Mononuclear WBC Synovial 1.3 %; Polynuclear WBC Synovial 98.7 %; RBC Synovial Fluid (A) 307000 /uL; Source Synovial Fluid HIP; WBC Synovial Fluid (A) 75811 /ul (0-200)
[2020-02-13] MEDS: SENNA 8.6 MG TAB PO SCH ×2 (21:06→21:13)
[2020-02-13] MEDS: DULOXETINE HCL 30 MG CAP PO SCH (21:07)
[2020-02-13] MEDS: SIMVASTATIN 40 MG TAB PO SCH (21:07)
[2020-02-13] MEDS: ZOLPIDEM TARTRATE 10 MG TAB PO PRN (23:42)
[2020-02-14] MEDS: PIPERACILLIN/TAZOBACTAM 3.375 GM in DEXTROSE 5% 100 ML IV SCH ×3 (01:19→19:51)
[2020-02-14] MEDS: SODIUM CHLORIDE 0.9% 1000ML 1,000 ML IV SCH ×3 (01:20→19:52)
[2020-02-14] MEDS: DAPTOmycin 250 MG in SYRINGE 0 ML IV SCH (01:20)
[2020-02-14] MEDS: LEVOTHYROXINE SODIUM 50 MCG TABLET PO SCH (05:24)
[2020-02-14 06:29] LABS: Basophils # (auto) 0.13 K/uL (0-0.2); Basophils % (auto) 1.1 %; Eosinophils # (auto) 0.31 K/uL (0-0.5); Eosinophils % (auto) 2.5 %; Hematocrit (blood only) 33.4 % (37-47); Hemoglobin 10.6 g/dL (12.0-16.0); Immature Granulocytes # (auto) 0.05 K/uL (0.00-0.02); Immature Granulocytes % (auto) 0.4 %; Lymphocytes # (auto) 4.52 K/uL (1.2-3.4); Lymphocytes % (auto) 36.9 %; Mean Corpuscular Hemoglobin 28.3 pg (25-34); Mean Corpuscular Hgb Conc 31.7 g/dL (32-36); Mean Corpuscular Volume 89.1 fL (80-100); Mean Platelet Volume 9.1 fL (7.4-10.4); Monocytes # (auto) 1.09 K/uL (0.11-0.59); Monocytes % (auto) 8.9 %; Neutrophils # (auto) 6.15 K/uL (1.4-6.5); Neutrophils % (auto) 50.2 %; Platelet Count 473 K/uL (130-400); RDW Coefficient of Variation 13.3 % (11.5-14.5); RDW Standard Deviation 43.4 fL (36.4-46.3); Red Blood Count 3.75 M/uL (4.2-5.4); White Blood Count 12.25 K/uL (4.8-10.8)
[2020-02-14 07:08] LABS: BUN Creatinine Ratio 14.5 (10-20); Calcium 9.2 mg/dl (8.5-10.1); Creatinine Clr Calc Pharmacy 68.2 ml/min; Est GFR (African American) 94.7; Est GFR (Non-African American) 81.7; Potassium 3.6 mmol/L (3.5-5.1)
[2020-02-14 07:11] LABS: C Reactive Protein 1.39 mg/dl (0-0.29)
--- NOTE | 2020-02-14 07:17 | Orthopedic Progress Note ---
Date of Service February 14, 2020 Assessment & Plan (1) History of total hip arthroplasty: Aspiration of the left hip fluid collection with a cell count of 75,811, 98.7% polys, concerning for abscess. I indicated the patient for irrigation and debridement of left anterior total hip, head and liner exchange and the risks and benefits were explained in detail which include but not limited to persistent or recurrent infection, bleeding, blood clot, damage to surrounding bone, nerves, vessels, soft tissue, hip dislocation, failure of the prosthesis, leg length discrepancy, need for additional surgery and loss of limb and loss of life. Patient is agreeable to plan and all questions were answered to satisfaction. The patient agreed to proceed with irrigation debridement of left total hip arthroplasty with head and liner exchange and informed consent was obtained at this time. Patient on IV daptomycin and Zosyn N.p.o. Hold anticoagulation at this time Admission and Anticipated Discharge Date Admission Date: February 10, 2020 Subjective Patient seen resting comfortably in bed this morning no acute issues overnight. N.p.o. for surgery today. Review of Systems Review of Systems: All systems reviewed & are unremarkable except as noted in HPI & below Physical Exam Physical Exam: LLE NVSI +EHL/FHL/TA/GS SILT grossly, +2 DP pulse, compartments soft NT, incision cdi Constitutional: WD/WN, vitals as above Results & Data ([facility]) Vital Signs (Past 12 Hours) Vital Signs Temp Pulse Pulse Resp BP Pulse Ox 02/14/20 02:13 36.8 C 79 18 127/67 92 02/14/20 01:32 80 02/13/20 23:55 36.7 C 82 18 117/66 94 02/13/20 21:52 81 02/13/20 19:32 36.7 C 73 16 137/72 95 Laboratory Results 02/14/20 02/14/20 02/13/20 Range/Units 06:07 06:07 15:10 WBC 12.25 H (4.8-10.8) K/uL RBC 3.75 L (4.2-5.4) M/uL Hgb 10.6 L (12.0-16.0) g/dL Hct 33.4 L (37-47) % MCV 89.1 (80-100) fL MCH 28.3 (25-34) pg MCHC 31.7 L (32-36) g/dL RDW Std Deviation 43.4 (36.4-46.3) fL RDW Coeff of Bernie 13.3 (11.5-14.5) % Plt Count 473 H (130-400) K/uL MPV 9.1 (7.4-10.4) fL Immature Gran % (Auto) 0.4 % Neut % (Auto) 50.2 % Lymph % (Auto) 36.9 % Mcmullen % (Auto) 8.9 % Eos % (Auto) 2.5 % Baso % (Auto) 1.1 % Neut # (Auto) 6.15 (1.4-6.5) K/uL Lymph # (Auto) 4.52 H (1.2-3.4) K/uL Mcmullen # (Auto) 1.09 H (0.11-0.59) K/uL Eos # (Auto) 0.31 (0-0.5) K/uL Baso # (Auto) 0.13 (0-0.2) K/uL Immature Gran # (Auto) 0.05 H (0.00-0.02) K/uL Blood Smear Review Sodium 144 (136-145) mmol/L Potassium 3.6 (3.5-5.1) mmol/L Chloride 112 H (98-107) mmol/L Carbon Dioxide 26 (21-32) mmol/L Anion Gap 6.0 (3-11) BUN 11 (7-18) mg/dl Creatinine 0.76 (0.6-1.2) mg/dl Est Cr Clr Drug Dosing 68.2 ml/min Est GFR ( Amer) 94.7 Est GFR (Non-Af Amer) 81.7 BUN/Creatinine Ratio 14.5 (10-20) Glucose 118 H (70-99) mg/dl Calcium 9.2 (8.5-10.1) mg/dl C-Reactive Protein 1.39 H (0-0.29) mg/dl Synovial Source HIP Synovial Color RED Synovial Appearance BLOODY Synovial WBC 47820 H (0-200) /ul Synovial RBC [id number] /uL Synovial Polynuclear % 98.7 % Synovial Mononuclear % 1.3 % 02/12/20 Range/Units 05:59 WBC (4.8-10.8) K/uL RBC (4.2-5.4) M/uL Hgb (12.0-16.0) g/dL Hct (37-47) % MCV (80-100) fL MCH (25-34) pg MCHC (32-36) g/dL RDW Std Deviation (36.4-46.3) fL RDW Coeff of Bernie (11.5-14.5) % Plt Count (130-400) K/uL MPV (7.4-10.4) fL Immature Gran % (Auto) % Neut % (Auto) % Lymph % (Auto) % Mcmullen % (Auto) % Eos % (Auto) % Baso % (Auto) % Neut # (Auto) (1.4-6.5) K/uL Lymph # (Auto) (1.2-3.4) K/uL Mcmullen # (Auto) (0.11-0.59) K/uL Eos # (Auto) (0-0.5) K/uL Baso # (Auto) (0-0.2) K/uL Immature Gran # (Auto) (0.00-0.02) K/uL Blood Smear Review Sodium (136-145) mmol/L Potassium (3.5-5.1) mmol/L Chloride (98-107) mmol/L Carbon Dioxide (21-32) mmol/L Anion Gap (3-11) BUN (7-18) mg/dl Creatinine (0.6-1.2) mg/dl Est Cr Clr Drug Dosing ml/min Est GFR ( Amer) Est GFR (Non-Af Amer) BUN/Creatinine Ratio (10-20) Glucose (70-99) mg/dl Calcium (8.5-10.1) mg/dl C-Reactive Protein (0-0.29) mg/dl Synovial Source Synovial Color Synovial Appearance Synovial WBC (0-200) /ul Synovial RBC /uL Synovial Polynuclear % % Synovial Mononuclear % %
[2020-02-14] MEDS: MONTELUKAST SODIUM 10 MG TABLET PO SCH (07:46)
[2020-02-14] MEDS: levETIRAcetam 250 MG TAB PO SCH ×2 (07:46→20:13)
[2020-02-14] MEDS: MULTIVITAMIN TAB PO SCH (07:46)
[2020-02-14] MEDS: VALSARTAN 80 MG TAB PO SCH (07:46)
--- NOTE | 2020-02-14 10:38 | Hospitalist Progress Note ---
Date of Service February 14, 2020 Assessment & Plan Admission and Anticipated Discharge Date Admission Date: February 10, 2020 64 yo female w/ pMHx. seizure, OA, hypothyroidism, HTN, hearing loss, DM, carotid artery disease, 4 weeks s/p total left hip arthorplasty presented with symptoms of dizziness, lightheadedness, and cough since Thursday. Found to be septic given elevated WBC in synovial fluid on hip aspirate, orthopedics is planning a procedure for today to address abscess vs. septic joint. Left hip abscess vs. septic joint in the setting of total hip arthroplasty with concerning hip aspiration and patient having incision and drainage of left total hip. - clinically stable, normal heart rate, afebrile, WBC 12.25, - IV Daptomycin and Zosyn IV, will narrow with cultures - will follow stains and cultures post procedure Hypertension - Blood pressure is borderline low initially - holding valsartan, and continue to monitor Diabetes mellitus type 2, controlled: - Holding metformin. - Patient Accu-Cheks before meals and at bedtime with NovoLog coverage per scale Hypophosphatemia (resolved) - Received 9 mmol K-Phos in the ED. - repeat (02/12) 3.36 Asthma - well controlled on home meds Acute kidney insufficiency - Creatinine 1.60 on admission with range 0.71-0.90. - Follow labs, currently 0.76 Seizure, epileptic - Continue Keppra 250 mg p.o. twice daily Hypothyroidism - Continue levothyroxine sodium 50 mcg every morning Thickened endometrium on CT - will require follow up with [facility] DVT: Heparin Code: full Supervising Physician Co-Signing Physician Notes Resident Physician Supervision Note: I independently interviewed and examined the patient and verified the myers history and physical, reviewed labs and image studies, discussed the case with the resident Dr. Prieto and agree with the findings and care plan. Subjective Doing well this morning, she awoke and was interactive with me. She had seen orthopedics prior to coming in to the room and they had discussed with her that they may need to do a procedure today to address the concern for an infection of her hip joint. Review of Systems Review of Systems: Constitutional: denies fever, chills Cardiac: denies chest pain, palpitations Pulm: admits cough w/o sputum production Neuro: admits headache, similar to prior headaches : denies urinary symptoms Physical Exam Constitutional: WD/WN, vitals as above Eyes: PERRL, conjunctivae normal, anicteric sclerae ENMT: external ear and nose normal, oropharynx normal Neck: normal visual inspection Cardiovascular: RRR, no murmur, no edema Gastrointestinal (Abdomen): - soft, nTTP Skin: - slight swelling of the left hip, small bruise anterior hip, tender w/o erythema Psychiatric: Orientation: alert and oriented x 3 Affect: euthymic affect Results & Data Results & Data ([place]) Vital Signs (Past 12 Hours) Vital Signs Temp Pulse Pulse Resp BP Pulse Ox 02/14/20 08:00 37.2 C 72 18 128/68 96 02/14/20 02:13 36.8 C 79 18 127/67 92 02/14/20 01:32 80 02/13/20 23:55 36.7 C 82 18 117/66 94 CBC Results Results Complete Blood Count Results: RBC 3.07 M/uL (4.2-5.4) L 02/15/20 WBC 13.36 K/uL (4.8-10.8) H 02/15/20 Hgb 8.9 g/dL (12.0-16.0) L 02/15/20 Hct 27.8 % (37-47) L 02/15/20 Plt Count 388 K/uL (130-400) 02/15/20 Chemistry ([facility]) Results [facility] Results: Sodium 142 mmol/L (136-145) 02/15/20 Potassium 3.4 mmol/L (3.5-5.1) L 02/15/20 Chloride 111 mmol/L (98-107) H 02/15/20 BUN 12 mg/dl (7-18) 02/15/20 Creatinine 1.07 mg/dl (0.6-1.2) 02/15/20 Glucose 133 mg/dl (70-99) H 02/15/20 Resident Activity Tracking Resident Involvement: Resident Care Provided Care Provided: Adult Hospital Medicine
[2020-02-14] MEDS ORDERED: fentaNYL citrate 100 MCG/2 ML VIAL ONE ×2 (14:41→16:30)
[2020-02-14] MEDS ORDERED: LIDOCAINE HCL 2% 2 ML VIAL/AMP(20MG/ML) INFIL ONE (14:41)
[2020-02-14] MEDS ORDERED: ONDANSETRON INJ 2 MG/ML 2 ML VIAL ONE ×2 (14:41→17:08)
[2020-02-14] MEDS ORDERED: PROPOFOL IV EMULSION 10 MG/ML 20 ML VIAL IV ONE (14:41)
[2020-02-14] MEDS ORDERED: MIDAZOLAM HCL 1 MG/ML 2ML VIAL ONE (14:41)
--- NOTE | 2020-02-14 14:47 | History & Physical Bridge Note ---
Date of Service February 14, 2020 History & Physical Bridge Note I have examined the patient, reviewed the History & Physical and in the interval since the performance of the History & Physical I have noted the following changes of clinical significance: no changes noted
[2020-02-14] MEDS ORDERED: BACITRACIN INJ 50,000 UNIT VIAL ONE (15:03)
--- NOTE | 2020-02-14 15:15 | Anesthesiology Consultation ---
Date of Service February 14, 2020 Assessment & Plan Chart Review Chart Review: Acceptable Risk for Surgery Consults Requested none History Surgery Operation Date: 02/14/20 07:00 Proposed Procedures p Left Hip Incision and Drainage with Head Liner Exchange - Neville Anderson DO Height/Weight Height: 5 ft 6 in Weight: 69.2 kg Allergies Allergy/AdvReac Type Severity Reaction Status Date / Time sertraline Allergy Unknown Hives Verified 02/10/20 21:17 Corticosteroids AdvReac Mild STEROID Verified 02/10/20 21:17 (Glucocorticoids) INJECTIONS-NAUSEA,FLUSHING,HIVES Medications Home Medications Medication Instructions Recorded Confirmed Last Taken levetiracetam 250 mg tablet 250 mg PO BID #180 tab 05/02/19 02/10/20 02/10/20 AM DOSE duloxetine 30 mg PO QPM 09/23/19 02/10/20 01/11/20 22:00 multivitamin [Daily Multi-Vitamin] 2 tab PO QAM 09/23/19 02/10/20 02/10/20 simvastatin 40 mg PO QPM 09/27/19 02/10/20 02/10/20 montelukast 10 mg tablet 10 mg PO QAM #90 tab 12/13/19 02/10/20 02/10/20 aspirin 81 mg PO BID #56 tab 01/12/20 02/10/20 02/10/20 AM DOSE metformin 500 mg tablet 500 mg PO QAM #90 tab 01/17/20 02/10/20 02/10/20 cyclobenzaprine 10 mg tablet 10 mg PO HS PRN #30 tab 02/09/20 02/10/20 Unknown acetaminophen 1,000 mg PO Q8 PRN 02/10/20 02/10/20 Unknown albuterol sulfate [Ventolin HFA] 1 - 2 puff INH Q6H PRN 02/10/20 02/10/20 Unknown celecoxib [Celebrex] 200 mg PO BID PRN 02/10/20 02/10/20 02/10/20 AM DOSE dextran 70-hypromellose (PF) 1 drp OPHTHALMIC (EYE) DIRECTED 02/10/2002/09 Unknown [Artificial Tears (PF)] PRN levothyroxine 50 mcg PO QAM 02/10/20 02/10/20 02/10/20 oxycodone 5 mg PO .Q4-6HRS PRN MDD 6 TABLETS 02/10/20 02/10/20 Unknown sennosides [Senokot] 17.2 mg PO HS 02/10/20 02/10/20 02/09/20 valsartan 160 mg PO QAM 02/10/20 02/10/20 02/10/20 zolpidem 10 mg PO HS PRN 02/10/20 02/10/20 02/09/20 Active Medications Generic Name Dose Route Start Last Admin Trade Name Freq PRN Reason Stop Dose Admin Duloxetine HCl 30 mg 02/11/20 21:00 02/13/20 21:07 Cymbalta PO 03/12/20 20:59 30 mg QPM JILLIAN Administration Sodium Chloride 1,000 mls @ 80 mls/hr 02/11/20 00:09 02/14/20 12:45 Nss 1000ml IV 03/12/20 00:08 80 mls/hr .[id number] JILLIAN Administration Piperacillin Sod/Tazobactam 115 mls @ 28.75 mls/hr 02/11/20 02:00 02/14/20 14:29 Sod 3.375 gm/ Dextrose IV 02/18/20 01:59 Infused Q8H JILLIAN Infusion Daptomycin 250 mg/ Syringe 5 mls @ 2.5 mls/min 02/12/20 01:00 02/14/20 01:20 IV 02/19/20 00:59 2.5 mls/min Q24H JILLIAN Administration Protocol Ioversol 118 ml 02/10/20 18:50 02/10/20 18:51 Optiray 320 125ml IV 02/14/20 18:49 118 ml ONCE PRN Administration Interaction Checking Levetiracetam 250 mg 02/11/20 00:09 02/14/20 07:46 Keppra PO 03/12/20 00:08 250 mg BID JILLIAN Administration Levothyroxine Sodium 50 mcg 02/11/20 06:30 02/14/20 05:24 Synthroid PO 03/12/20 06:29 50 mcg DAILYBB JILLIAN Administration Magnesium Hydroxide 30 ml 02/11/20 00:09 02/13/20 15:46 Milk Of Magnesia PO 03/12/20 00:08 30 ml Q12H PRN Administration Constipation Montelukast Sodium 10 mg 02/11/20 09:00 02/14/20 07:46 Singulair PO 03/12/20 08:59 10 mg QAM JILLIAN Administration Multivitamins 2 tab 02/11/20 09:00 02/14/20 07:46 Multivitamin Tab PO 03/12/20 08:59 2 tab QAM JILLIAN Administration Oxycodone HCl 5 mg 02/11/20 00:25 02/11/20 01:43 Roxicodone Immediate Rel PO 02/25/20 00:24 5 mg Q6H PRN Administration Pain (MODERATE) Sennosides 17.2 mg 02/11/20 21:00 02/13/20 21:13 Senokot PO 03/12/20 20:59 Not Given HS JILLIAN Simvastatin 40 mg 02/11/20 21:00 02/13/20 21:07 Zocor PO 03/12/20 20:59 40 mg QPM JILLIAN Administration Valsartan 160 mg 02/11/20 09:00 02/14/20 07:46 Diovan PO 03/12/20 08:59 160 mg QAM JILLIAN Administration Zolpidem Tartrate 10 mg 02/11/20 00:09 02/13/20 23:42 Ambien PO 03/12/20 00:08 10 mg HS PRN Administration Insomnia NPO Date Last Intake of Fluids: 02/14/20 Time Last Intake of Fluids: 07:46 Date Last Intake of Solids: 02/13/20 Time Last Intake of Solids: 22:30 Past Medical History Medical History Anxiety Asthma Only using BID inhaler as PRN Degenerative disc disease Depression Hearing deficit 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 Single episode, felt 2/2 dehydration.-NO ISSUES SINCE History of shingles Hyperlipidemia Hypertension Hypothyroid Osteoarthritis Prediabetes ORAL MED Sleep apnea Not currently using CPAP Past Family History Family History Sister Family history of diabetes mellitus Past Surgical History Surgical History History of colonoscopy History of tonsillectomy and adenoidectomy History of total right hip replacement Hx of splenectomy ALSO - TACOS AND APPY AT SAME TIME DUE TO HEREDITARY SPHEROCYTOSIS Hx of tubal ligation Social History Smoking Status: Never smoker Hx Alcohol Use: Yes Alcohol type: wine alcohol intake frequency: holidays/special occasions only Hx Substance Use: No substance use type: does not use Physical Exam Vital Signs Last Vital Signs Temp 37.1 C 02/14/20 14:05 Pulse 80 02/14/20 14:05 Resp 18 02/14/20 14:05 BP 167/77 H 02/14/20 14:05 Pulse Ox 97 02/14/20 14:05 Testing Laboratory Results 02/14/20 06:07 02/14/20 06:07 PT 12.5 Seconds (9.0-12.0) H 02/10/20 17:33 INR 1.2 (0.9-1.1) H 02/10/20 17:33 APTT 30.6 Seconds (21.0-31.0) 02/10/20 17:33 Urine Color Yellow 02/10/20 21:00 Urine Appearance Clear (Clear) 02/10/20 21:00 Urine pH 5.0 (4.5-7.5) 02/10/20 21:00 Ur Specific [place] > 1.045 (1.000-1.030) H 02/10/20 21:00 Urine Protein Negative (Negative) 02/10/20 21:00 Urine Glucose (UA) Negative (Negative) 02/10/20 21:00 Urine Ketones Negative (Negative) 02/10/20 21:00 Urine Nitrite Negative (Negative) 02/10/20 21:00 Ur Leukocyte Esterase 1+ (Negative) H 02/10/20 21:00 Urine WBC (Auto) 10-30 /hpf (0-5) H 02/10/20 21:00 Urine RBC (Auto) 0-4 /hpf (0-4) 02/10/20 21:00 U Hyaline Cast (Auto) 1-5 /lpf (0-5) 02/10/20 21:00 U Epithel Cells (Auto) 5-10 /lpf (0-5) H 02/10/20 21:00 Urine Bacteria (Auto) Negative (Negative) 02/10/20 21:00 02/13/20 15:10 Gram Stain - Final Hip,Left Aerobic and Anaerobic Culture - Preliminary No growth to date. 02/10/20 17:24 Aerobic Blood Culture - Preliminary Blood No growth in Aerobic bottle after 48 hours. Anaerobic Blood Culture - Preliminary No growth in Anaerobic bottle after 48 hours. 02/10/20 17:33 Aerobic Blood Culture - Preliminary Blood No growth in Aerobic bottle after 48 hours. Anaerobic Blood Culture - Preliminary No growth in Anaerobic bottle after 48 hours. 02/10/20 21:00 Urine Culture - Final Urine,Clean Catch No growth - less than 1,000 colonies/mL.
[2020-02-14] MEDS ORDERED: fentaNYL citrate 100 MCG/2 ML VIAL IV PRN (15:16)
[2020-02-14] MEDS ORDERED: METOCLOPRAMIDE HCL INJ 5 MG/ML 2 ML VIAL IV PRN ×2 (15:16→19:43)
[2020-02-14] MEDS ORDERED: KETOROLAC 30 MG/ML VIAL IV PRN (15:16)
[2020-02-14] MEDS ORDERED: HYDROmorphone INJ 2 MG/ML SYR/VIAL IV PRN (15:16)
[2020-02-14] MEDS ORDERED: ePHEDrine sulfate 50 MG/ML AMP IV PRN (15:16)
[2020-02-14] MEDS ORDERED: ATROPINE SULFATE 0.1 MG/ML 10ML SYR IV PRN (15:16)
[2020-02-14] MEDS ORDERED: PROMETHAZINE HCL 12.5 MG in SODIUM CHLORIDE 0.9% 50 ML IV PRN (15:16)
[2020-02-14] MEDS ORDERED: ONDANSETRON INJ 2 MG/ML 2 ML VIAL IV PRN ×2 (15:16→19:43)
[2020-02-14] MEDS ORDERED: ePHEDrine sulfate 50 MG/ML SYR ONE (16:10)
[2020-02-14] MEDS ORDERED: GLYCOPYRROLATE 0.2 MG/ML VIAL ONE (16:10)
[2020-02-14] MEDS ORDERED: PHENYLEPHRINE 100MCG/ML 5ML SYR ONE ×2 (16:10→17:34)
[2020-02-14] MEDS ORDERED: HYDROmorphone INJ 2 MG/ML SYR/VIAL ONE (17:05)
--- NOTE | 2020-02-14 17:38 | Post Operative Brief Note ---
Immediate Post Op Note v1 Date of Surgery February 14, 2020 Pre & Post Diagnosis Operation Date: 02/14/20 07:00 Pre-Op Diagnosis: Left hip abcess Post-Op Diagnosis: Left hip abcess I identified the patient and participated in the time-out.: Yes Procedure Operation Date: 02/14/20 07:00 Actual Procedures p Left Hip Incision and Drainage with Head and Liner Exchange(Left) - Neville Anderson DO Surgeon Neville Anderson DO Tape Stringer Hemanth Guthrie Estimated Blood Loss 225 Findings Consistent with Post-Op Diagnosis Fluids 800 cc LR Specimens Culture swab x2 deep seroma Tissue sample x3 synovium and periarticular soft tissue Drains Hemovac Drain (dual) Anesthesia Type General Complications none Disposition Disposition: Recovery Room Overlapping Procedure I was present for: the critical portions of procedure. I was immediately available: during the entire case. Back up surgeon: was not required during procedure.
--- NOTE | 2020-02-14 17:39 | Operative Report ---
Post Operative Report Pre & Post Diagnosis Operation Date: 02/14/20 07:00 Pre-Op Diagnosis: Left hip abcess Post-Op Diagnosis: Left hip abcess I identified the patient and participated in the time-out.: Yes Procedure Operation Date: 02/14/20 07:00 Actual Procedures p Left Hip Incision and Drainage with Head and Liner Exchange(Left) - Neville Anderson DO Surgeon Neville Anderson DO Parts Lister Hemanth Guthrie Estimated Blood Loss 225 Findings Consistent with Post-Op Diagnosis Specimens Culture swab x2 deep seroma Tissue sample x3 synovium and periarticular soft tissue Drains Hemovac drain deep to fascia Anesthesia Type General Complications none Disposition Disposition: Recovery Room Description of Procedure Following induction of adequate general anesthesia, the patient was transferred to the OR table and placed in the supine position. The right leg was placed in the well leg contreras and the left leg placed in the traction leg contreras. The left hip was prepped and draped in the typical sterile fashion utilizing Betadine solution. A timeout was performed, patient identified site mariajose confirmed and appropriate antibiotics given. Incision was performed in line w ith previously healed surgical incision. Subcutaneous tissue was sharply dissected down to facia which was intact. The fascia was incised throughout the length of the wound and prior suture removed. I immediately identified a seroma which was cultured x2. The seroma was evacuated and electrocautery was utilized for hemostasis. A Charnley retractor was placed. Retained suture from previous surgery was removed and deep dissection was carried down to the previously repaired capsule. Capsulotomy was performed. A tissue cultures x 3 were obtained deep to fascia. Total hip prosthesis was identified and meticulous removal of intra-articular scar tissue was performed with bovie. The hip prosthesis was dislocated by traction and external rotation in a controlled manner. The femoral head was removed from the trunion, which was clean and was without signs of wear. The femoral stem stability assessed and found to be stable without signs of loosening. Next, exposure of the acetabulum was obtained. Additional scar tissue removal and debridement of the intra-articular soft tissue was performed. Utilizing the liner extraction tool the liner was removed. Acetabular cup stability was assessed and found to be stable and without signs of loosening. Next the surgical wound was irrigated with copious amounts of sterile saline with bacitracin, 9 L and total. Next a final 32 x 50 acetabular liner and 32+0 femoral head were inserted and impacted into place. The hip was reduced and C-arm fluoroscopy was brought in and final x-rays were taken which demonstrated adequate alignment of the total hip prosthesis with equal leg lengths. A 3 minute Betadine soak was performed followed by irrigation once more with copious amounts of sterile saline solution with bacitracin. Capsule and deep tissues were closed with #1 PDS. Hemovac drain was placed deep to fascia. Fascia was closed with #1 PDS with interrupted [id number] sutures. Subcutaneous tissues were closed with 2-0 PDS interrupted suture. Skin was closed with koffi and sterile dressings were applied which included Xeroform 4 x 4's ABD, drain sponge and foam tape. The patient tolerated the procedure well and was transported to PACU in stable condition. Due to the complex nature of the procedure, the entire surgery was performed with the operational assistance of Hemanth Guthrie PA-C. The assistant health educator, under direct supervision, was involved in the actual performance of all aspects of the surgical procedure including patient positioning, hemostasis, tissue retraction, instrument management and wound closure. I attest to the content of the Intraoperative Record and any orders documented therein. Any exceptions are noted below.
--- NOTE | 2020-02-14 18:29 | Anesthesiology Progress Note ---
Date of Service February 14, 2020 Anesthesia Post Procedure Vital Signs Vital Signs: Temp Pulse Pulse Resp BP Pulse Ox 02/14/20 14:05 37.1 C 80 18 167/77 H 97 02/14/20 12:00 37.3 C 70 18 133/67 96 02/14/20 08:00 37.2 C 72 18 128/68 96 02/14/20 02:13 36.8 C 79 18 127/67 92 02/14/20 01:32 80 02/13/20 23:55 36.7 C 82 18 117/66 94 02/13/20 21:52 81 02/13/20 19:32 36.7 C 73 16 137/72 95 Pain Intensity Chest: Pain Intensity: 4 Left Hip: Pain Intensity: 3 Transfer of Care Handoff Completed per policy Notes Mental Status: alert / awake / arousable and participated in evaluation Patient Amnestic to Procedure: Yes Nausea / Vomiting: adequately controlled Pain: adequately controlled Airway Patency, RR, SpO2: stable & adequate BP & HR: stable & adequate Hydration State: stable & adequate Anesthetic Complications: no major complications apparent and Pt Satisfied with anesthetic care
--- NOTE | 2020-02-14 18:50 | XRay Report ---
XR hip 1V LT w pelvis HISTORY: 64 years-old Female IN PACU - A/P PELVIS and LATERAL HIP left hip total joint arthroplasty COMPARISON: Pelvis and left hip radiographs 02/10/2020 TECHNIQUE: AP view the pelvis with crosstable lateral view of the left hip FINDINGS: Bilateral hip total joint arthroplasties are in place. Lateral left hip skin staple are noted along w ith expected postsurgical soft tissue swelling and deep tissue air. Surgical drainage catheter is not ed. No retained foreign body or malalignment. No acute fracture. IMPRESSION: Satisfactory alignment of the left hip total joint arthroplasty with expected postoperati ve findings. ACT 112: Negative or not required by law. The above report was generated using voice recognition software. It may contain grammatical, syntax o r spelling errors. Electronically signed by: Theodore Hernandez M.D. 02/14/2020 6:49 PM
[2020-02-14] MEDS ORDERED: NALOXONE HCL 0.4 MG/1 ML VIAL/CARP IV PRN (19:43)
[2020-02-14] MEDS ORDERED: MAGNESIUM HYDROXIDE SUSP 30 ML UDC PO PRN (19:43)
[2020-02-14] MEDS ORDERED: bisacodyL 10 MG SUPP PR PRN (19:43)
--- NOTE | 2020-02-14 19:58 | Orthopedic Progress Note ---
Date of Service February 14, 2020 Assessment & Plan (1) History of total hip arthroplasty: s/p I+D L anterior DERIK, head and liner exchange -Dapto, Zosyn -DVT ppx: SCDs, TEDs, ASA BID -WBAT LLE -PT/OT -Monitor drain output -f/u IA cultures -PO XR demonstrates a well aligned well fixed prothesis without fracture/dislocation -am lab Admission and Anticipated Discharge Date Admission Date: February 10, 2020 Subjective Post Operative Progress Note Patient seen in PACU, comfortable, denies complaints, pain well controlled, no acute issues. Review of Systems Review of Systems: All systems reviewed & are unremarkable except as noted in HPI & below Constitutional: as per Subjective / HPI Physical Exam Physical Exam: LLE NVSI +EHL/FHL/TA/GS SILT grossly, +2 DP pulse, compartments soft NT, dressing cdi. Constitutional: WD/WN, vitals as above Results & Data ([facility]) Vital Signs (Past 12 Hours) Vital Signs Temp Pulse Pulse Resp BP Pulse Ox 02/14/20 19:49 36.8 C 89 14 118/65 98 02/14/20 19:10 91 H 17 120/59 L 94 02/14/20 19:00 36.6 C 84 14 113/57 L 94 02/14/20 18:50 83 12 137/54 L 93 02/14/20 18:40 85 12 124/59 L 93 02/14/20 18:30 97 H 13 140/50 L 94 02/14/20 18:20 91 H 12 103/62 94 02/14/20 18:16 36.3 C L 89 17 125/53 L 98 02/14/20 14:05 37.1 C 80 18 167/77 H 97 02/14/20 12:00 37.3 C 70 18 133/67 96 02/14/20 08:00 37.2 C 72 18 128/68 96
[2020-02-14] MEDS: DULOXETINE HCL 30 MG CAP PO SCH (20:13)
[2020-02-14] MEDS: DOCUSATE SODIUM 100 MG CAP PO SCH ×2 (20:13→20:15)
[2020-02-14] MEDS: SENNA 8.6 MG TAB PO SCH ×2 (20:13→20:16)
[2020-02-14] MEDS: KETOROLAC TROMETHAMINE 15 MG/ML VIAL IV SCH (20:14)
[2020-02-14] MEDS: SIMVASTATIN 40 MG TAB PO SCH (20:14)
[2020-02-14] MEDS ORDERED: SENNA 8.6 MG TAB PO SCH (21:00)
[2020-02-14] MEDS: OXYCODONE HCL IR 5 MG TAB (IMMEDIATE RELEASE) PO PRN (21:49)
[2020-02-14] MEDS: ACETAMINOPHEN 500 MG TAB PO SCH (21:49)
[2020-02-14] MEDS: ZOLPIDEM TARTRATE 10 MG TAB PO PRN (21:51)
[2020-02-15] MEDS: DAPTOmycin 250 MG in SYRINGE 0 ML IV SCH (00:57)
[2020-02-15] MEDS: PIPERACILLIN/TAZOBACTAM 3.375 GM in DEXTROSE 5% 100 ML IV SCH ×3 (01:00→17:40)
[2020-02-15] MEDS: KETOROLAC TROMETHAMINE 15 MG/ML VIAL IV SCH ×3 (01:00→14:16)
[2020-02-15] MEDS: ACETAMINOPHEN 500 MG TAB PO SCH ×3 (05:03→21:26)
[2020-02-15] MEDS: LEVOTHYROXINE SODIUM 50 MCG TABLET PO SCH (05:03)
[2020-02-15] MEDS: SODIUM CHLORIDE 0.9% 1000ML 1,000 ML IV SCH (05:31)
[2020-02-15 06:32] LABS: Basophils # (auto) 0.08 K/uL (0-0.2); Basophils % (auto) 0.6 %; Eosinophils # (auto) 0.16 K/uL (0-0.5); Eosinophils % (auto) 1.2 %; Hematocrit (blood only) 27.8 % (37-47); Hemoglobin 8.9 g/dL (12.0-16.0); Immature Granulocytes # (auto) 0.06 K/uL (0.00-0.02); Immature Granulocytes % (auto) 0.4 %; Lymphocytes # (auto) 4.67 K/uL (1.2-3.4); Mean Corpuscular Volume 90.6 fL (80-100); Mean Platelet Volume 9.1 fL (7.4-10.4); Neutrophils # (auto) 7.19 K/uL (1.4-6.5); Neutrophils % (auto) 53.8 %; Platelet Count 388 K/uL (130-400); RDW Coefficient of Variation 13.8 % (11.5-14.5); RDW Standard Deviation 44.9 fL (36.4-46.3); Red Blood Count 3.07 M/uL (4.2-5.4); White Blood Count 13.36 K/uL (4.8-10.8)
[2020-02-15 07:06] LABS: BUN Creatinine Ratio 11.4 (10-20); Calcium 8.2 mg/dl (8.5-10.1); Creatinine Clr Calc Pharmacy 48.4 ml/min; Est GFR (African American) 62.7; Est GFR (Non-African American) 54.1; Potassium 3.4 mmol/L (3.5-5.1)
[2020-02-15 07:19] LABS: C Reactive Protein 2.26 mg/dl (0-0.29); Phosphorus 4.3 mg/dl (2.5-4.9)
[2020-02-15] MEDS: MULTIVITAMIN TAB PO SCH (07:36)
[2020-02-15] MEDS: VALSARTAN 80 MG TAB PO SCH (07:36)
[2020-02-15] MEDS: levETIRAcetam 250 MG TAB PO SCH ×2 (07:37→20:28)
[2020-02-15] MEDS: ASPIRIN 325 MG ECTAB PO SCH ×2 (07:37→20:28)
[2020-02-15] MEDS: MONTELUKAST SODIUM 10 MG TABLET PO SCH (07:37)
[2020-02-15] MEDS: DOCUSATE SODIUM 100 MG CAP PO SCH ×2 (07:37→20:29)
--- NOTE | 2020-02-15 07:42 | Fluoroscopy Report ---
FL hip LT 1V CLINICAL HISTORY: Left hip I&D with liner exchange COMPARISON STUDY: 02/10/2020 FLUOROSCOPY TIME: 7 seconds. NUMBER OF FLUOROSCOPIC IMAGES: 3 FINDINGS: 3 intraoperative fluoroscopic spot images reveal bilateral total hip arthroplasties. IMPRESSION: Intraoperative fluoroscopic spot images demonstrating bilateral total hip arthroplasties ACT 112: Negative or not required by law. Electronically signed by: Devon Macias M.D. 02/15/2020 7:41 AM
[2020-02-15] MEDS ORDERED: MULTIVITAMIN TAB PO SCH (09:00)
--- NOTE | 2020-02-15 09:21 | Orthopedic Progress Note ---
Date of Service February 15, 2020 Assessment & Plan (1) History of total hip arthroplasty: s/p I+D L anterior DERIK, head and liner exchange POD#1 -Dapto, Zosyn -DVT ppx: SCDs, TEDs, ASA BID -WBAT LLE -PT/OT -Monitor drain output - 10/10 mL -f/u IO cultures -PO XR demonstrates a well aligned well fixed prothesis without fracture/dislocation -am labs as above -DC planning, patient will require course of IV abx x 6 weeks, cultures pending Admission and Anticipated Discharge Date Admission Date: February 10, 2020 Subjective Post Operative Progress Note Patient seen laying in bed this am, comfortable, denies complaints, pain well controlled, no acute issues. Denies F/C/N/V/SOB/CP. Review of Systems Review of Systems: All systems reviewed & are unremarkable except as noted in HPI & below Constitutional: as per Subjective / HPI Physical Exam Physical Exam: LLE NVSI +EHL/FHL/TA/GS SILT grossly, +2 DP pulse, compartments soft NT, dressing cdi. Constitutional: WD/WN, vitals as above Results & Data ([facility]) Vital Signs (Past 12 Hours) Vital Signs Temp Pulse Pulse Resp BP Pulse Ox 02/15/20 08:00 37.0 C 75 16 87/51 L 92 02/15/20 04:00 36.6 C 65 18 106/57 L 92 02/15/20 02:37 72 02/15/20 00:17 36.3 C L 77 18 104/60 93 Laboratory Results 02/15/20 02/15/20 Range/Units 05:59 05:59 WBC 13.36 H (4.8-10.8) K/uL RBC 3.07 L (4.2-5.4) M/uL Hgb 8.9 L (12.0-16.0) g/dL Hct 27.8 L (37-47) % MCV 90.6 (80-100) fL MCH 29.0 (25-34) pg MCHC 32.0 (32-36) g/dL RDW Std Deviation 44.9 (36.4-46.3) fL RDW Coeff of Bernie 13.8 (11.5-14.5) % Plt Count 388 (130-400) K/uL MPV 9.1 (7.4-10.4) fL Immature Gran % (Auto) 0.4 % Neut % (Auto) 53.8 % Lymph % (Auto) 35.0 % [place] % (Auto) 9.0 % Eos % (Auto) 1.2 % Baso % (Auto) 0.6 % Neut # (Auto) 7.19 H (1.4-6.5) K/uL Lymph # (Auto) 4.67 H (1.2-3.4) K/uL [place] # (Auto) 1.20 H (0.11-0.59) K/uL Eos # (Auto) 0.16 (0-0.5) K/uL Baso # (Auto) 0.08 (0-0.2) K/uL Immature Gran # (Auto) 0.06 H (0.00-0.02) K/uL Sodium 142 (136-145) mmol/L Potassium 3.4 L (3.5-5.1) mmol/L Chloride 111 H (98-107) mmol/L Carbon Dioxide 26 (21-32) mmol/L Anion Gap 5.0 (3-11) BUN 12 (7-18) mg/dl Creatinine 1.07 (0.6-1.2) mg/dl Est Cr Clr Drug Dosing 48.4 ml/min Est GFR ( Amer) 62.7 Est GFR (Non-Af Amer) 54.1 BUN/Creatinine Ratio 11.4 (10-20) Glucose 133 H (70-99) mg/dl Calcium 8.2 L (8.5-10.1) mg/dl Phosphorus 4.3 D (2.5-4.9) mg/dl C-Reactive Protein 2.26 H (0-0.29) mg/dl
[2020-02-15] MEDS: OXYCODONE HCL IR 5 MG TAB (IMMEDIATE RELEASE) PO PRN (10:11)
--- NOTE | 2020-02-15 10:46 | Hospitalist Progress Note ---
Date of Service February 15, 2020 Assessment & Plan Admission and Anticipated Discharge Date Admission Date: February 10, 2020 64 yo female w/ pMHx. seizure, OA, hypothyroidism, HTN, hearing loss, DM, carotid artery disease, 4 weeks s/p total left hip arthroplasty presented with symptoms of dizziness, lightheadedness, and cough since Thursday (02/05). Found to have concerning aspirate of left hip and orthopedics performed incision and drainage today with liner exchange. s/p incision and drainage of left hip abscess in setting of total hip arthroplasty (4 weeks prior) - clinically stable, normal heart rate, afebrile, WBC 13.36, BCx. neg. @ 48 hours X 2. - left hip aspirate from 02/12: WBC's w/ no organisms - IV Daptomycin and Zosyn IV, will narrow with cultures - will follow intraoperative stains and cultures - Will require IV antibiotics per ortho for 6 weeks (?PICC tomorrow?) - PT/OT Hypertension - Blood pressure is borderline low initially and postoperatively - holding valsartan, and continue to monitor Diabetes mellitus type 2, controlled: - Holding metformin. - Patient Accu-Cheks before meals and at bedtime with NovoLog coverage per scale Hypophosphatemia (resolved) - Received 9 mmol K-Phos in the ED. - repeat (02/14) 4.3 Asthma - well controlled on home meds Acute kidney insufficiency - Creatinine 1.60 on admission with range 0.71-0.90. - Follow labs, currently 1.07 Seizure, epileptic - Continue Keppra 250 mg p.o. twice daily Hypothyroidism - Continue levothyroxine sodium 50 mcg every morning Thickened endometrium on CT - will require follow up with [facility] DVT: SCD's, JOSE's, ASA BID Code: full Supervising Physician Co-Signing Physician Notes Resident Physician Supervision Note: I independently interviewed and examined the patient and verified the myers h istory and physical, reviewed labs and image studies, discussed the case with the resident Dr. Prieto and agree with the findings and care plan. Subjective Doing okay this morning, she was wondering when she might be able to leave the hospital. She has not had any gas this morning after the procedure. She had no questions after discussion. Review of Systems Review of Systems: Constitutional: denies fever, chills Cardiac: denies chest pain, palpitations Pulmonary: denies cough or shortness of breath : cath in place (AM) Physical Exam Constitutional: WD/WN, vitals as above Eyes: PERRL, conjunctivae normal, anicteric sclerae ENMT: external ear and nose normal, oropharynx normal Neck: normal visual inspection Cardiovascular: RRR, no murmur, no edema Skin: - left hip wound w/ bandage in place c/d/i drain in place with bloody fluid Psychiatric: Orientation: alert and oriented x 3 Affect: euthymic affect Results & Data Results & Data ([facility]) Vital Signs (Past 12 Hours) Vital Signs Temp Pulse Pulse Resp BP Pulse Ox 02/15/20 08:00 37.0 C 75 16 87/51 L 92 02/15/20 04:00 36.6 C 65 18 106/57 L 92 02/15/20 02:37 72 02/15/20 00:17 36.3 C L 77 18 104/60 93 CBC Results Results Complete Blood Count Results: RBC 2.90 M/uL (4.2-5.4) L 02/16/20 WBC 16.73 K/uL (4.8-10.8) H 02/16/20 Hgb 8.6 g/dL (12.0-16.0) L 02/16/20 Hct 26.1 % (37-47) L 02/16/20 Plt Count 403 K/uL (130-400) H 02/16/20 Chemistry (BMP) Results BMP Results: Sodium 141 mmol/L (136-145) 02/16/20 Potassium 3.4 mmol/L (3.5-5.1) L 02/16/20 Chloride 112 mmol/L (98-107) H 02/16/20 BUN 9 mg/dl (7-18) 02/16/20 Creatinine 0.65 mg/dl (0.6-1.2) 02/16/20 Glucose 157 mg/dl (70-99) H 02/16/20 Resident Activity Tracking Resident Involvement: Resident Care Provided Care Provided: Adult Hospital Medicine
[2020-02-15] MEDS: HYDROmorphone INJ 0.5 MG/0.5 ML SYR IV PRN ×3 (12:31→21:26)
[2020-02-15] MEDS: SIMVASTATIN 40 MG TAB PO SCH (20:28)
[2020-02-15] MEDS: DULOXETINE HCL 30 MG CAP PO SCH (20:28)
[2020-02-15] MEDS: SENNA 8.6 MG TAB PO SCH (20:29)
[2020-02-15] MEDS ORDERED: COUGH DROP (SUGAR FREE) LOZ 24 LOZ/1 BOX BUCCAL PRN (22:06)
[2020-02-15] MEDS: ZOLPIDEM TARTRATE 10 MG TAB PO PRN (22:14)
[2020-02-16] MEDS: PIPERACILLIN/TAZOBACTAM 3.375 GM in DEXTROSE 5% 100 ML IV SCH ×3 (01:43→17:51)
[2020-02-16] MEDS: DAPTOmycin 250 MG in SYRINGE 0 ML IV SCH (01:47)
[2020-02-16] MEDS: LEVOTHYROXINE SODIUM 50 MCG TABLET PO SCH (05:44)
[2020-02-16] MEDS: ACETAMINOPHEN 500 MG TAB PO SCH ×3 (05:44→22:43)
[2020-02-16] MEDS: HYDROmorphone INJ 0.5 MG/0.5 ML SYR IV PRN ×2 (05:48→21:28)
[2020-02-16 06:13] LABS: Basophils # (auto) 0.09 K/uL (0-0.2); Basophils % (auto) 0.5 %; Eosinophils # (auto) 0.55 K/uL (0-0.5); Eosinophils % (auto) 3.3 %; Hematocrit (blood only) 26.1 % (37-47); Hemoglobin 8.6 g/dL (12.0-16.0); Immature Granulocytes # (auto) 0.08 K/uL (0.00-0.02); Immature Granulocytes % (auto) 0.5 %; Lymphocytes # (auto) 4.98 K/uL (1.2-3.4); Lymphocytes % (auto) 29.8 %; Mean Corpuscular Hemoglobin 29.7 pg (25-34); Mean Platelet Volume 9.1 fL (7.4-10.4); Monocytes # (auto) 1.55 K/uL (0.11-0.59); Monocytes % (auto) 9.3 %; Neutrophils # (auto) 9.48 K/uL (1.4-6.5); Neutrophils % (auto) 56.6 %; Nucleated RBC # (auto) 0.12 K/uL (0-0); Nucleated RBC % (auto) 0.7 %; Platelet Count 403 K/uL (130-400); RDW Standard Deviation 45.6 fL (36.4-46.3); White Blood Count 16.73 K/uL (4.8-10.8)
[2020-02-16 06:52] LABS: BUN Creatinine Ratio 13.1 (10-20); C Reactive Protein 9.49 mg/dl (0-0.29); Calcium 8.3 mg/dl (8.5-10.1); Creatinine Clr Calc Pharmacy 79.7 ml/min; Est GFR (African American) 107.2; Est GFR (Non-African American) 92.5; Phosphorus 1.8 mg/dl (2.5-4.9); Potassium 3.4 mmol/L (3.5-5.1)
[2020-02-16] MEDS: MONTELUKAST SODIUM 10 MG TABLET PO SCH (08:37)
[2020-02-16] MEDS: VALSARTAN 80 MG TAB PO SCH (08:37)
[2020-02-16] MEDS: levETIRAcetam 250 MG TAB PO SCH ×2 (08:37→21:30)
[2020-02-16] MEDS: ASPIRIN 325 MG ECTAB PO SCH ×2 (08:38→21:30)
[2020-02-16] MEDS: MULTIVITAMIN TAB PO SCH (08:38)
[2020-02-16] MEDS: DOCUSATE SODIUM 100 MG CAP PO SCH ×2 (08:38→21:30)
--- NOTE | 2020-02-16 12:41 | Orthopedic Progress Note ---
Date of Service February 16, 2020 Assessment & Plan (1) History of total hip arthroplasty: s/p I+D L anterior DERIK, head and liner exchange POD#2 -cont. Dapto, Zosyn -DVT ppx: SCDs, TEDs, ASA BID -WBAT LLE -PT/OT -Monitor drain output - 100/100 mL -IO cultures, +coag neg staph -PO XR demonstrates a well aligned well fixed prothesis without fracture/dislocation -am labs as above -DC planning, patient will require course of IV abx x 6 weeks, picc, POD#1 -Dapto, Zosyn -DVT ppx: SCDs, TEDs, ASA BID -WBAT LLE -PT/OT -Monitor drain output - 10/10 mL -f/u IO cultures -PO XR demonstrates a well aligned well fixed prothesis without fracture/dislocation -am labs as above -DC planning, patient will require course of IV abx x 6 weeks, cultures pending Admission and Anticipated Discharge Date Admission Date: February 10, 2020 Subjective Post Operative Progress Note Patient seen sitting up in bed, comfortable, denies complaints, pain well controlled, no acute issues. Denies F/C/N/V/SOB/CP. Review of Systems Review of Systems: All systems reviewed & are unremarkable except as noted in HPI & below Constitutional: as per Subjective / HPI Physical Exam Physical Exam: LLE NVSI +EHL/FHL/TA/GS SILT grossly, +2 DP pulse, compartments soft NT, dressing cdi. Drain intact Constitutional: WD/WN, vitals as above Results & Data ([facility]) Vital Signs (Past 12 Hours) Vital Signs Temp Pulse Pulse Resp BP BP Pulse Ox 02/16/20 11:37 36.7 C 97 H 16 147/55 H 92 02/16/20 07:55 37.3 C 94 H 16 124/58 L 91 02/16/20 07:39 90 02/16/20 04:36 37.4 C 84 18 118/54 L 93
[2020-02-16] MEDS: OXYCODONE HCL IR 5 MG TAB (IMMEDIATE RELEASE) PO PRN (12:56)
[2020-02-16] MEDS: SENNA 8.6 MG TAB PO SCH (21:30)
[2020-02-16] MEDS: DULOXETINE HCL 30 MG CAP PO SCH (21:30)
[2020-02-16] MEDS: SIMVASTATIN 40 MG TAB PO SCH (21:30)
[2020-02-16] MEDS: ZOLPIDEM TARTRATE 10 MG TAB PO PRN (22:43)
[2020-02-17] MEDS: ZOLPIDEM TARTRATE 10 MG TAB PO PRN (01:49)
[2020-02-17] MEDS: PIPERACILLIN/TAZOBACTAM 3.375 GM in DEXTROSE 5% 100 ML IV SCH ×3 (01:49→17:51)
[2020-02-17] MEDS: DAPTOmycin 250 MG in SYRINGE 0 ML IV SCH (01:49)
[2020-02-17] MEDS: ACETAMINOPHEN 500 MG TAB PO SCH ×3 (06:10→21:23)
[2020-02-17] MEDS: LEVOTHYROXINE SODIUM 50 MCG TABLET PO SCH (06:11)
[2020-02-17 06:46] LABS: Basophils # (auto) 0.12 K/uL (0-0.2); Basophils % (auto) 0.8 %; Eosinophils % (auto) 4.2 %; Hematocrit (blood only) 25.6 % (37-47); Hemoglobin 8.4 g/dL (12.0-16.0); Immature Granulocytes # (auto) 0.05 K/uL (0.00-0.02); Immature Granulocytes % (auto) 0.3 %; Lymphocytes # (auto) 4.69 K/uL (1.2-3.4); Lymphocytes % (auto) 32.6 %; Mean Corpuscular Hemoglobin 29.3 pg (25-34); Mean Corpuscular Hgb Conc 32.8 g/dL (32-36); Mean Corpuscular Volume 89.2 fL (80-100); Mean Platelet Volume 9.1 fL (7.4-10.4); Monocytes # (auto) 1.37 K/uL (0.11-0.59); Monocytes % (auto) 9.5 %; Neutrophils # (auto) 7.57 K/uL (1.4-6.5); Neutrophils % (auto) 52.6 %; Nucleated RBC # (auto) 0.21 K/uL (0-0); Nucleated RBC % (auto) 1.5 %; Platelet Count 419 K/uL (130-400); RDW Coefficient of Variation 14.1 % (11.5-14.5); RDW Standard Deviation 45.3 fL (36.4-46.3); Red Blood Count 2.87 M/uL (4.2-5.4)
[2020-02-17 07:12] LABS: BUN Creatinine Ratio 11.1 (10-20); Calcium 9.2 mg/dl (8.5-10.1); Creatinine Clr Calc Pharmacy 72.7 ml/min; Est GFR (African American) 91.8; Est GFR (Non-African American) 79.2; Potassium 3.4 mmol/L (3.5-5.1)
[2020-02-17] MEDS ORDERED: POTASSIUM CHLORIDE 20 MEQ TABCR PO STA (07:25)
[2020-02-17] MEDS: ASPIRIN 325 MG ECTAB PO SCH ×2 (08:23→21:23)
[2020-02-17] MEDS: levETIRAcetam 250 MG TAB PO SCH ×2 (08:23→21:23)
[2020-02-17] MEDS: MULTIVITAMIN TAB PO SCH (08:23)
[2020-02-17] MEDS: VALSARTAN 80 MG TAB PO SCH (08:23)
[2020-02-17] MEDS: MONTELUKAST SODIUM 10 MG TABLET PO SCH (08:23)
[2020-02-17] MEDS: DOCUSATE SODIUM 100 MG CAP PO SCH ×2 (08:23→21:23)
--- NOTE | 2020-02-17 09:19 | Orthopedic Progress Note ---
Date of Service February 17, 2020 Assessment & Plan (1) History of total hip arthroplasty: s/p I+D L anterior DERIK, head and liner exchange POD#3 -cont. Dapto, Zosyn -DVT ppx: SCDs, TEDs, ASA BID -WBAT LLE -PT/OT -DC drain -IO cultures, +coag neg staph, awaiting final IV abx recs -PO XR demonstrates a well aligned well fixed prothesis without fracture/dislocation -am labs as above -DC planning, patient will require course of IV abx x 6 weeks, picc consent in chart, POD#2 -cont. Dapto, Zosyn -DVT ppx: SCDs, TEDs, ASA BID -WBAT LLE -PT/OT -Monitor drain output - 100/100 mL -IO cultures, +coag neg staph -PO XR demonstrates a well aligned well fixed prothesis without fracture/dislo cation -am labs as above -DC planning, patient will require course of IV abx x 6 weeks, picc, POD#1 -Dapto, Zosyn -DVT ppx: SCDs, TEDs, ASA BID -WBAT LLE -PT/OT -Monitor drain output - 10/10 mL -f/u IO cultures -PO XR demonstrates a well aligned well fixed prothesis without fracture/dislocation -am labs as above -DC planning, patient will require course of IV abx x 6 weeks, cultures pending Admission and Anticipated Discharge Date Admission Date: February 10, 2020 Subjective Post Operative Progress Note Patient seen ambulating in room, comfortable, denies complaints, pain well controlled, no acute issues overnight. Denies F/C/N/V/SOB/CP. Review of Systems Review of Systems: All systems reviewed & are unremarkable except as noted in HPI & below Constitutional: as per Subjective / HPI Physical Exam Physical Exam: LLE NVSI +EHL/FHL/TA/GS SILT grossly, +2 DP pulse, compartments soft NT, dressing cdi. Constitutional: WD/WN, vitals as above Results & Data ([facility]) Vital Signs (Past 12 Hours) Vital Signs Temp Pulse Pulse Resp BP Pulse Ox 02/17/20 07:32 37.1 C 83 16 137/69 90 02/17/20 07:12 85 02/17/20 04:00 36.7 C 83 18 139/68 91 02/17/20 00:00 37.4 C 81 20 130/71 92 02/16/20 23:24 94 H Laboratory Results 02/17/20 02/17/20 Range/Units 06:07 06:07 WBC 14.40 H (4.8-10.8) K/uL RBC 2.87 L (4.2-5.4) M/uL Hgb 8.4 L (12.0-16.0) g/dL Hct 25.6 L (37-47) % MCV 89.2 (80-100) fL MCH 29.3 (25-34) pg MCHC 32.8 (32-36) g/dL RDW Std Deviation 45.3 (36.4-46.3) fL RDW Coeff of Bernie 14.1 (11.5-14.5) % Plt Count 419 H (130-400) K/uL MPV 9.1 (7.4-10.4) fL Immature Gran % (Auto) 0.3 % Neut % (Auto) 52.6 % Lymph % (Auto) 32.6 % [place] % (Auto) 9.5 % Eos % (Auto) 4.2 % Baso % (Auto) 0.8 % Neut # (Auto) 7.57 H (1.4-6.5) K/uL Lymph # (Auto) 4.69 H (1.2-3.4) K/uL [place] # (Auto) 1.37 H (0.11-0.59) K/uL Eos # (Auto) 0.60 H (0-0.5) K/uL Baso # (Auto) 0.12 (0-0.2) K/uL Immature Gran # (Auto) 0.05 H (0.00-0.02) K/uL Absolute Nucleated RBC 0.21 H (0-0) K/uL Nucleated RBC % (auto) 1.5 % Sodium 142 (136-145) mmol/L Potassium 3.4 L (3.5-5.1) mmol/L Chloride 109 H (98-107) mmol/L Carbon Dioxide 28 (21-32) mmol/L Anion Gap 4.0 (3-11) BUN 9 (7-18) mg/dl Creatinine 0.78 (0.6-1.2) mg/dl Est Cr Clr Drug Dosing 72.7 ml/min Est GFR ( Amer) 91.8 Est GFR (Non-Af Amer) 79.2 BUN/Creatinine Ratio 11.1 (10-20) Glucose 141 H (70-99) mg/dl Calcium 9.2 (8.5-10.1) mg/dl
--- NOTE | 2020-02-17 16:11 | Hospitalist Progress Note ---
Date of Service February 17, 2020 Assessment & Plan Admission and Anticipated Discharge Date Admission Date: February 10, 2020 64 yo female w/ pMHx. seizure, OA, hypothyroidism, HTN, hearing loss, DM, carotid artery disease, 4 weeks s/p total left hip arthroplasty presented with symptoms of dizziness, lightheadedness, and cough since 02/05. Found to have concerning aspirate of left hip and orthopedics performed incision and drainage with liner exchange. Tele ID discussed Abx. and gave their recommendations. s/p incision and drainage of left hip abscess in setting of total hip arthroplasty (4 weeks prior) - clinically stable, normal heart rate, afebrile, WBC 14.40, BCx. neg. final X2 - hip aspirate culture no growth - pretreated wound cultures w/ + coag. neg. staph. X1 rare - left hip aspirate from 02/12: WBC's w/ no organisms - IV Daptomycin and Zosyn IV initially - ID consulted and appreciate recs., awaiting note to populate in EMR - Continue Dapto IV, added Rifampin oral 600 mg daily as per ID verbal recs per ortho - Will require IV antibiotics per ortho for 6 weeks (PICC tomorrow) - PT/OT Cough - patient endorsed cough this AM, likely 2/2 intubation given post operative setting and improvement vs. asthma - continue to monitor for improvement Hypertension - Blood pressure is borderline low - holding valsartan, and continue to monitor Diabetes mellitus type 2, controlled: - Holding metformin. - Patient Accu-Cheks before meals and at bedtime with NovoLog coverage per scale Hypophosphatemia (resolved) - Received 9 mmol K-Phos in the ED. - repeat (02/14) 4.3 Asthma - previously well controlled on home meds Acute kidney insufficiency - Creatinine 1.60 on admission with range 0.71-0.90. - Follow labs, currently 1.0.78 Seizure, epileptic - Continue Keppra 250 mg p.o. twice daily Hypothyroidism - Continue levothyroxine sodium 50 mcg every morning Thickened endometrium on CT - will require follow up with [facility] DVT: SCD's, JOSE's, ASA BID Code: full Supervising Physician Co-Signing Physician Notes Resident Physician Supervision Note: I independently interviewed and examined the patient and verified the myers history and physical, reviewed labs and image studies, discussed the case with the resident Dr. Prieto and agree with the findings and care plan. Subjective Doing okay this morning. She was very tired when I spoke to her. She wanted to know what our plan was moving forward and I brought up that we were waiting on cultures to further guide our management with the antibiotics. She did not have any other questions for me this morning. Review of Systems Review of Systems: Constitutional: denies fever, chills Cardiac: denies chest pain, palpitations Pulm: admits cough, denies shortness of breath Neuro: denies headache : denies urinary pain, urgency or frequency Physical Exam Constitutional: WD/WN, vitals as above Eyes: PERRL, conjunctivae normal, anicteric sclerae ENMT: external ear and nose normal, oropharynx normal Neck: normal visual inspection Respiratory: normal respiratory effort, lungs clear to auscultation Cardiovascular: RRR, no murmur, no edema Skin: left hip surgical site with dressing c/d/i drain with bloody fluid no surrounding erythema, slightly swollen Psychiatric: Orientation: alert and oriented x 3 Affect: euthymic affect Results & Data Results & Data ([facility]) Vital Signs (Past 12 Hours) Vital Signs Temp Pulse Pulse Resp BP Pulse Ox 02/17/20 15:37 36.8 C 75 18 100/48 L 95 02/17/20 11:35 37.2 C 81 16 147/73 H 91 02/17/20 07:32 37.1 C 83 16 137/69 90 02/17/20 07:12 85 CBC Results Results Complete Blood Count Results: RBC 2.87 M/uL (4.2-5.4) L 02/17/20 WBC 14.40 K/uL (4.8-10.8) H 02/17/20 Hgb 8.4 g/dL (12.0-16.0) L 02/17/20 Hct 25.6 % (37-47) L 02/17/20 Plt Count 419 K/uL (130-400) H 02/17/20 Chemistry (BMP) Results BMP Results: Sodium 142 mmol/L (136-145) 02/17/20 Potassium 3.4 mmol/L (3.5-5.1) L 02/17/20 Chloride 109 mmol/L (98-107) H 02/17/20 BUN 9 mg/dl (7-18) 02/17/20 Creatinine 0.78 mg/dl (0.6-1.2) 02/17/20 Glucose 141 mg/dl (70-99) H 02/17/20 Resident Activity Tracking Resident Involvement: Resident Care Provided Care Provided: Adult [facility]
[2020-02-17] MEDS: rifAMPin 300 MG CAPSULE PO SCH (17:51)
[2020-02-17] MEDS: SENNA 8.6 MG TAB PO SCH (21:22)
[2020-02-17] MEDS: DULOXETINE HCL 30 MG CAP PO SCH (21:23)
[2020-02-17] MEDS: SIMVASTATIN 40 MG TAB PO SCH (21:23)
[2020-02-18] MEDS: DAPTOmycin 250 MG in SYRINGE 0 ML IV SCH (01:40)
[2020-02-18 05:56] LABS: Hematocrit (blood only) 30.5 % (37-47); Hemoglobin 9.7 g/dL (12.0-16.0); Mean Corpuscular Hemoglobin 28.8 pg (25-34); Mean Corpuscular Hgb Conc 31.8 g/dL (32-36); Mean Corpuscular Volume 90.5 fL (80-100); Mean Platelet Volume 9.2 fL (7.4-10.4); Nucleated RBC # (auto) 0.34 K/uL (0-0); Nucleated RBC % (auto) 2.6 %; Platelet Count 511 K/uL (130-400); RDW Coefficient of Variation 14.3 % (11.5-14.5); RDW Standard Deviation 46.2 fL (36.4-46.3); Red Blood Count 3.37 M/uL (4.2-5.4); White Blood Count 13.12 K/uL (4.8-10.8)
[2020-02-18] MEDS: LEVOTHYROXINE SODIUM 50 MCG TABLET PO SCH (06:03)
[2020-02-18] MEDS: ACETAMINOPHEN 500 MG TAB PO SCH ×3 (06:03→22:10)
[2020-02-18 06:27] LABS: BUN Creatinine Ratio 14.8 (10-20); Creatinine Clr Calc Pharmacy 66.6 ml/min; Est GFR (African American) 83.9; Est GFR (Non-African American) 72.4; Potassium 3.6 mmol/L (3.5-5.1)
[2020-02-18 06:59] LABS: Basophils % (auto) 0.8 %; Eosinophils # (auto) 0.47 K/uL (0-0.5); Eosinophils % (auto) 3.6 %; Immature Granulocytes # (auto) 0.05 K/uL (0.00-0.02); Immature Granulocytes % (auto) 0.4 %; Lymphocytes # (auto) 5.99 K/uL (1.2-3.4); Lymphocytes % (auto) 45.7 %; Monocytes # (auto) 1.05 K/uL (0.11-0.59); Neutrophils # (auto) 5.46 K/uL (1.4-6.5); Neutrophils % (auto) 41.5 %; Spherocytes 1+
[2020-02-18] MEDS: MONTELUKAST SODIUM 10 MG TABLET PO SCH (08:56)
[2020-02-18] MEDS: VALSARTAN 80 MG TAB PO SCH (08:56)
[2020-02-18] MEDS: rifAMPin 300 MG CAPSULE PO SCH (08:56)
[2020-02-18] MEDS: MULTIVITAMIN TAB PO SCH (08:58)
[2020-02-18] MEDS: DOCUSATE SODIUM 100 MG CAP PO SCH ×2 (08:59→19:59)
[2020-02-18] MEDS: ASPIRIN 325 MG ECTAB PO SCH ×2 (08:59→19:59)
[2020-02-18] MEDS: levETIRAcetam 250 MG TAB PO SCH ×2 (08:59→19:58)
--- NOTE | 2020-02-18 09:26 | Orthopedic Progress Note ---
Date of Service February 18, 2020 Assessment & Plan (1) History of total hip arthroplasty: s/p I+D L anterior DERIK, head and liner exchange POD#4 -cont. Dapto, rifampin -DVT ppx: SCDs, TEDs, ASA BID -WBAT LLE -PT/OT -IO cultures, +coag neg staph -PO XR demonstrates a well aligned well fixed prothesis without fracture/dislocation -am labs as above -DC planning, patient will require course of IV abx x 6 weeks, picc consent in chart, will attempt PICC placement today as patient was confused at attempt yesterday. Per SS, HH cannot come until Thursday, so patient will have to get tomorrow's dose in the AM and D/C after. POD#2 -cont. Dapto, Zosyn -DVT ppx: SCDs, TEDs, ASA BID -WBAT LLE -PT/OT -Monitor drain output - 100/100 mL -IO cultures, +coag neg staph -PO XR demonstrates a well aligned well fixed prothesis without fracture/dislocation -am labs as above -DC planning, patient will require course of IV abx x 6 weeks, picc, POD#1 -Dapto, Zosyn -DVT ppx: SCDs, TEDs, ASA BID -WBAT LLE -PT/OT -Monitor drain output - 10/10 mL -f/u IO cultures -PO XR demonstrates a well aligned well fixed prothesis without fracture/dislocation -am labs as above -DC planning, patient will require course of IV abx x 6 weeks, cultures pending Admission and Anticipated Discharge Date Admission Date: February 10, 2020 Subjective POD #4, doing well. Denies SOB, CP, N/V. Pain controlled well. Did not get PICC yesterday due to confusion. IV team to try again today. Physical Exam Physical Exam: Left hip dressings in tact. Some drainage from distal dressings. Toes/ ankle mobile. No calf tenderness. A&OX3. Results & Data ([facility]) Vital Signs (Past 12 Hours) Vital Signs Temp Pulse Pulse Resp BP BP Pulse Ox 02/18/20 08:01 36.5 C 80 18 147/70 H 96 02/18/20 03:00 37 C 91 H 20 151/68 H 91 02/18/20 00:27 68 07//20 23:45 36.7 C 82 20 134/72 95
[2020-02-18] MEDS ORDERED: VANCOMYCIN CONSULT ACTIVE PRN (09:52)
--- NOTE | 2020-02-18 09:59 | Orthopedic Progress Note ---
Date of Service February 18, 2020 Assessment & Plan (1) History of total hip arthroplasty: per medicine Daptomycin will be changed to Vancomycin daily. Admission and Anticipated Discharge Date Admission Date: February 10, 2020 Results & Data ([facility]) Vital Signs (Past 12 Hours) Vital Signs Temp Pulse Pulse Resp BP BP Pulse Ox 02/18/20 08:01 36.5 C 80 18 147/70 H 96 02/18/20 03:00 37 C 91 H 20 151/68 H 91 02/18/20 00:27 68 02/17/20 23:45 36.7 C 82 20 134/72 95
--- NOTE | 2020-02-18 10:52 | Pharmacy Report ---
Pharmacy Abx Dose Short Note - Date of Service February 18, 2020 - Assessment & Plan Assessment 64 year old F receiving IV Daptomycin 02/10-02/17, s/p I&D Left Hip. ID recommendations - - Recommend switching from Daptomycin to Vancomycin IV for 6 weeks from 02/14/2020 - Recommend starting Rifampin 300 mg PO BID from 6 weeks from 02/14/2020 - Pt will need additional PO antibiotics after initial 6 weeks of (Vancomyin and Rifampin) which will be determined by ID on f/u appointment Patient to be discharged 02/18 Plan Vancomycin * 1000mg (14mg/kg) IV Q12H starting at 0200 on 02/18 (last dose Dapto today at 0140) * PK Parameters: T1/2 12hours, Tyron = 0.059/hr, Vd = 0.7L/Kg * Discharge tomorrow, levels to be followed by home health * Dr Izaguirre aware pt will need Q12H dosing (unable to do Q24 hours with Vanco d/t renal fx). Pharmacy will continue to follow and will adjust dose/frequency as necessary. Thank you.
--- NOTE | 2020-02-18 12:10 | Hospitalist Progress Note ---
Date of Service February 18, 2020 Assessment & Plan (1) History of total hip arthroplasty: 64 yo female who is four weeks out from a total left hip arthroplasty, admitted on 02/10/20 for evaluation of dizziness, found to have an abscess of her left hip joint. Left hip artificial joint infection - patient is 4 weeks out from total arthroplasty - upon presentation WBC was elevated to 21; down to 13 today - ESR elevated to 28, CRP at 10 - CT scan of abdomen/pelvis identified an abscess in left hip joint - ortho performed a needle aspirate of the joint, although the culture showed no growth - Incision and Drainage of L hip performed with linear exchange - post-op XR demonstrates a well aligned well fixed prothesis without fracture/dislocation - culture of left hip wound growing coagulase - staph - Infectious Disease tele-consult recommend 6 week course of IV vancomycin and oral Rifampin 300mg, PO, BID (from 02/14/20) - Recommend CBC, CMP, and Vancomycin trough weekly - PICC line placement today - patient will receive IV dose of vancomycin today and tomorrow, home health arranged for 02/19 - Infectious Disease follow up will be needed upon completion of the above course Normocytic Anemia - Hgb 9.7 today, was 13.4 on admission - MCV 90 - likely some component of post-operative blood loss - iron studies pending Hypertension - Blood pressure normal at 125/71 - continue home valsartan Diabetes mellitus type 2, controlled: - HbA1c pending - Holding home metformin - Accu-Cheks before meals - lantus + sliding scale insulin while inpatient - continue home statin Hypophosphatemia (resolved) - Received 9 mmol K-Phos in the ED. - repeat (02/14) 4.3 Asthma - previously well controlled on home meds Acute kidney insufficiency, resolved - Creatinine normal at 0.8 Seizure, epileptic - Continue Keppra 250 mg p.o. twice daily Hypothyroidism - Continue levothyroxine sodium 50 mcg every morning Thickened endometrium on CT - will require follow up with [facility] as outpatient Diet: heart healthy; DM 2 Dispo: floor DVT: SCDs, high dose ASA Code: full Admission and Anticipated Discharge Date Admission Date: February 10, 2020 Supervising Physician Co-Signing Physician Notes Resident Physician Supervision Note: I independently interviewed and examined the patient and verified the myers history and physical, reviewed labs and image studies, discussed the case with the resident Dr. Izaguirre and agree with the findings and care plan. Subjective No acute events overnight. Eating and drinking well. Ambulating with walker. Review of Systems Constitutional: no fever and no sweats Physical Exam Constitutional: WD/WN, vitals as above cooperative Eyes: PERRL, conjunctivae normal, anicteric sclerae ENMT: external ear and nose normal, oropharynx normal Respiratory: normal respiratory effort, lungs clear to auscultation Cardiovascular: RRR, no murmur, no edema Heart Sounds: normal S1 and normal S2 Extremities: no pedal edema Gastrointestinal (Abdomen): normal bowel sounds, soft, nontender, no hepatosplenomegaly Musculoskeletal: Hip: + surgical incision (left sided incision without erythema or purulent drainage ) Skin: no rashes, warm and dry Psychiatric: A+Ox3, euthymic affect Results & Data Results & Data ([facility]) Vital Signs (Past 12 Hours) Vital Signs Temp Pulse Pulse Resp BP BP Pulse Ox 02/18/20 11:00 37.6 C H 85 18 125/71 97 02/18/20 08:01 36.5 C 80 18 147/70 H 96 02/18/20 03:00 37 C 91 H 20 151/68 H 91 02/18/20 00:27 68 Resident Activity Tracking Resident Involvement: Resident Care Provided Care Provided: Adult Hospital Medicine
[2020-02-18] MEDS ORDERED: CARBOHYDRATES FOR HYPOGLYCEMIA PO PRN (12:15)
[2020-02-18] MEDS ORDERED: GLUCOSE 10 TABS/TUBE PO PRN (12:15)
[2020-02-18] MEDS ORDERED: GLUCOSE 40% GEL 15 GM TUBE PO PRN (12:15)
[2020-02-18] MEDS ORDERED: GLUCAGON FOR INJ 1 MG VIAL IM PRN (12:15)
[2020-02-18] MEDS ORDERED: DEXTROSE 50% 50 ML SYRINGE IV PRN (12:15)
[2020-02-18 13:09] LABS: Estimated Average Glucose 154 mg/dl
[2020-02-18] MEDS: INSULIN GLARGINE SOLOSTAR 100 UNITS/ML 3 ML PEN SC SCH (13:13)
--- NOTE | 2020-02-18 13:25 | XRay Report ---
XR chest 1V portable CLINICAL HISTORY: Right PICC line placement COMPARISON STUDY: 02/10/2020 FINDINGS: PICC catheter placed in the superior vena cava. No evidence for pneumothorax. The lungs are considered clear. IMPRESSION: PICC catheter placed in the superior vena cava. No evidence for pneumothorax. ACT 112: Negative or not required by law. The above report was generated using voice recognition software. It may contain grammatical, syntax or spelling errors. Electronically signed by: Boby Bosch M.D. 02/18/2020 1:23 PM
[2020-02-18 13:57] LABS: Ferritin 246.3 ng/ml (8-388)
[2020-02-18] MEDS: INSULIN ASPART 100 UNITS/ML 3 ML PEN SC SCH ×2 (18:13→21:11)
[2020-02-18] MEDS: OXYCODONE HCL IR 5 MG TAB (IMMEDIATE RELEASE) PO PRN (19:56)
[2020-02-18] MEDS: SENNA 8.6 MG TAB PO SCH (19:58)
[2020-02-18] MEDS: SIMVASTATIN 40 MG TAB PO SCH (19:58)
[2020-02-18] MEDS: DULOXETINE HCL 30 MG CAP PO SCH (19:59)
[2020-02-18] MEDS: ZOLPIDEM TARTRATE 10 MG TAB PO PRN (22:17)
[2020-02-19] MEDS: VANCOMYCIN HCL 1,000 MG in SODIUM CHLORIDE 0.9% 250 ML IV SCH ×2 (01:34→13:50)
[2020-02-19] MEDS: LEVOTHYROXINE SODIUM 50 MCG TABLET PO SCH (06:37)
[2020-02-19] MEDS: ACETAMINOPHEN 500 MG TAB PO SCH ×2 (06:37→13:51)
--- NOTE | 2020-02-19 07:14 | Discharge Summary ---
Date of Service February 19, 2020 Admission HPI Per Admitting Provider The patient is a 64-year-old female with a past medical history including seizure disorder, osteoarthritis, lumbar disc disease, hypothyroidism, hypertension, bilateral hearing loss, fibromyalgia, diabetes mellitus, carotid artery disease, bilateral carpal tunnel syndrome, urinary tract infection, hypophosphatemia, hypercalcemia, sleep apnea and status post left total hip arthroplasty on 01/12/2020. The patient does also note some slight chest discomfort with episodic shortness of breath, and had a CT angiography of the chest which showed bronchitis. She also underwent a CT of the abdomen and pelvis which showed a left upper thigh 5.5 x 4 x 2.5 cm gas and fluid collection. CT was also concerning for gram possible cystitis and thickened endometrium. Significant laboratories included a low phosphorus of 1.2, increased WBC of 21.04, increased creatinine to 1.60, and increased platelets of 685. Admission Exam Per Admitting Provider The patient is awake, alert and oriented 3, well developed and well nourished, normocephalic and atraumatic, lying in bed and in no acute distress. HEENT--PERRL, EOMI, mucous membranes and oropharynx dry. Neck--supple. No JVD. No bruits. Thyroid normal, trachea midline, no adenopathy. Heart--normal S1 and S2. No murmurs, rubs or gallops. Lungs--clear bilaterally, no respiratory distress, no accessory muscle use. Abdomen--normal bowel sounds and soft. Nontender. Nondistended. Extremities--no cyanosis or clubbing. No edema. Mild pain over left hip. Dermatologic--normal skin turgor, normal color, no abnormal lymph nodes, no rash. Neurologic--cranial nerves II through XII grossly intact. Rheumatologic--normal range of motion. Psychiatric--normal affect. Principal Diagnosis Artificial Joint infectoin Discharge Exam Constitutional WD/WN, vitals as above cooperative Eyes PERRL, conjunctivae normal, anicteric sclerae ENMT external ear and nose normal, oropharynx normal Respiratory normal respiratory effort, lungs clear to auscultation Cardiovascular RRR, no murmur, no edema Heart Sounds: normal S1 and normal S2 Extremities: no pedal edema Gastrointestinal (Abdomen) normal bowel sounds, soft, nontender, no hepatosplenomegaly Musculoskeletal Hip: + surgical incision (left sided incision without erythema or purulent drainage ) Skin no rashes, warm and dry Psychiatric A+Ox3, euthymic affect Discharge Data Allergies Allergy/AdvReac Type Severity Reaction Status Date / Time sertraline Allergy Unknown Hives Verified 02/10/20 21:17 Corticosteroids AdvReac Mild STEROID Verified 02/10/20 21:17 (Glucocorticoids) INJECTIONS-NAUSEA,FLUSHING,HIVES Consultations 02/10/20 20:26 ED Decision to Admit Stat 02/11/20 00:09 Consult Case Management - Discharge Planning Routine 02/11/20 08:26 Consult Orthopedic Surgery Routine 02/15/20 08:00 Consult Case Management - Discharge Planning Routine 02/17/20 13:16 Consult Infectious Diseases Routine Procedures Performed Operation Date: 02/14/20 07:00 Actual Procedures p Head and Liner Exchange(Left) - Neville Anderson DO s Left Hip Incision and Drainage with(Left) - Neville Anderson DO Ordered Studies 02/10/20 16:38 CT abd pelvis IV con only Stat CT angio chest PE protocol Stat 02/13/20 14:04 US asp mjr jnt sh,hip,kn LT Routine 02/13/20 15:00 US guide needle placement Routine 02/14/20 14:00 FL fluoroscopy <1hr Routine FL hip LT 1V Routine Hospital Course (1) History of total hip arthroplasty: 64 yo female who is four weeks out from a total left hip arthroplasty, admitted on 02/10/20 for evaluation of dizziness, found to have an abscess of her artificial left hip joint. Orthopedics was consulted and performed an incision and drainage of the abscess, along with an exchange of her hardwear. A telehealth consult was obtained with [facility], who recommend a 6 week antibiotic course of IV vancomycin and oral rifampin. Left hip artificial joint infection - patient 4 weeks out from total arthroplasty - upon presentation WBC was elevated to 21 - CT scan of abdomen/pelvis identified an abscess in artificial left hip joint - ortho performed a needle aspirate of the joint, although the culture showed no growth - Incision and Drainage of L hip ultimately performed with linear hardwear exchange - post-op XR demonstrated a well aligned well fixed prothesis without fracture/dislocation - culture of left hip wound grew coagulase - staph - Infectious Disease tele-consult recommend 6 week course of IV vancomycin and oral Rifampin 300mg, PO, BID (from 02/14/20) - PICC line was placed on 02/18/20 for continued IV antibiotic course - [facility] home health arranged for Thursday, 02/19 - [facility] follow up will be needed upon completion of the above course - CBC, CMP, and Vancomycin trough levels ordered for week of February 20, 2020 - WBC improved to 12 by time of discharge, patient afebrile, no signs of sepsis throughout hospital course Outpatient items to do: Check CBC, CMP, vancomycin trough levels q week Normocytic Anemia - Hgb 9.7 today, was 13.4 on admission - MCV 90 - likely some component of post-operative blood loss - iron level low at 28, ferritin level normal - recommend oral iron supplement Hypertension - Blood pressure normal at 125/71 - continue home valsartan Diabetes mellitus type 2, controlled: - HbA1c 7.0 in hospital, at goal for age - continue home metformin dosing - continue home statin Outpatient items to do: repeat HbA1c in 3 months Hypophosphatemia (resolved) - Received 9 mmol K-Phos in the ED. - repeat (02/14) 4.3 Asthma - previously well controlled on home meds Acute kidney insufficiency, resolved - Creatinine normal at 0.8 Seizure, epileptic - Continue Keppra 250 mg p.o. 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 ABSCESS, MIRNA, BRONCHITIS Discharge Diagnosis: hip abscess s/p I&D w/ liner exchange Activity: Per Instructions section Non-emergency contact: Primary Care Provider and Surgeon Call non-emergency contact if: you have a fever and your wound pain has increased Follow-up/Referrals: Nba Sheldon MD [Primary Care Provider] - Kelley Llamas MD [Physician] - (thickened endometrium on CT Scan, atypical finding ) Ambrose Darnell II, DO [Physician] - 03/26/20 (Please schedule 6 week follow up visit. (second week in march) ) Diet: Regular Addtl Attending Provider Instructions: Hip infection You came into the hospital with concern for some type of infection. After imaging and orthopedic consultation it was determined that you had an infection of your left artificial hip joint that was placed 4 weeks ago. Orthopedics drained the abscess that formed within the joint and replaced the joint hardware. After the procedure, we consulted with infectious disease specialists at [facility] to discuss antibiotic therapy for you. They recommended a 6 week course of two antibiotics: Rifampin, 300mg, by mouth, twice daily AND Vancomycin, IV, daily. You had a peripheral intravenous catheter placed while in the hospital - this port will allow your home health agency to administer your IV vancomycin on a daily basis. Pharmacy will help determine the dose each day. You also need to have weekly blood work drawn. Your home health nursing staff came do this as well. They recommend you be seen by an infectious disease specialist 6 weeks after leaving the hospital, as your antibiotic therapy may be to be extended at this time. If your notice changes forming around your incision site, such as increase in redness or draining of pus, please call your doctor. Similarly, if you develop fevers/chills, or begin to feel ill, please contact your doctor. As for your rehabilitation, we recommend following the instructions of your orthopedic surgeons. The cat scan of your abdomen/pelvis that was ordered to visualize your left hip also showed an increased thickness of your endometrium, or the lining of your uterus. We recommend you follow up with an MATERIALS PLANNING ANALYST regarding this abnormal finding. 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 Anderson , [facility] [place] 12[place]14 [place] post op, call [phone] for appt. Follow up with Dr. Felipe Darnell, [facility] infectious disease, for appt. Pending Studies at Discharge: No Stand-Alone Forms: My [employer], Smoking Cessation Medications and DC Order Prescriptions: New rifampin 300 mg Capsule 300 mg PO BID 42 Days Qty: 84 RF: 0 oxycodone 5 mg Tablet 5 mg PO Q4H PRN (Reason: pain) Qty: 30 RF: 0 aspirin [Ecotrin] 325 mg Tablet,Delayed Release (Dr/Ec) 325 mg PO BID 30 Days Qty: 60 RF: 0 Continued levetiracetam 250 mg tablet 250 mg PO BID Qty: 180 RF: 3 montelukast 10 mg tablet 10 mg PO QAM Qty: 90 RF: 1 metformin 500 mg tablet 500 mg PO QAM Qty: 90 RF: 3 cyclobenzaprine 10 mg tablet 10 mg PO HS PRN (Reason: Muscle Spasticity) Qty: 30 RF: 2 multivitamin [Daily Multi-Vitamin] tablet 2 tab PO QAM RF: 0 duloxetine 30 mg capsule,delayed release(DR/EC) 30 mg PO QPM RF: 0 simvastatin 40 mg tablet 40 mg PO QPM RF: 0 valsartan 160 mg tablet 160 mg PO QAM RF: 0 celecoxib [Celebrex] 200 mg capsule 200 mg PO BID PRN (Reason: Pain/inflammation ) RF: 0 sennosides [Senokot] 8.6 mg tablet 17.2 mg PO HS RF: 0 acetaminophen 500 mg tablet 1,000 mg PO Q8 PRN (Reason: Fever Or Pain) RF: 0 levothyroxine 50 mcg tablet 50 mcg PO QAM RF: 0 zolpidem 10 mg tablet 10 mg PO HS PRN (Reason: Insomnia) RF: 0 albuterol sulfate [Ventolin HFA] 90 mcg/actuation HFA aerosol inhaler 1 - 2 puff INH Q6H PRN (Reason: Shortness Of Breath Or Wheezing) RF: 0 Artificial Tears (PF) 0.1-0.3 % Dropperette 1 drp OPHTHALMIC (EYE) DIRECTED PRN (Reason: Dry Eye(S)) RF: 0 Discontinued aspirin 81 mg Tablet,Delayed Release (Dr/Ec) 81 mg PO BID Qty: 56 RF: 0 oxycodone 5 mg tablet 5 mg PO .Q4-6HRS MDD 6 TABLETS PRN (Reason: Pain) RF: 0 Discharge Orders: Discharge Order (Routine); Ordered 02/19/20 Ordered By: Boby Resendez/Other Patient Handouts: Managing Type 2 Diabetes, Diabetes: Meal Planning, A1C Admission Data Admit Date/Time: 02/10/20 22:32 Attending Provider: Yamilet Lima Admit Provider: Alan Mistry Primary Care Provider: Nba Sheldon Other Providers: Eleno Alejandra ; Alan Mistry ; Yovanny Mendieta ; [facility] ; Raymon Mondragon ; Chantal Hays ; Simon Romo I. ; Ambrose Darnell II ; Raine Hudson ; Boby Sabillon ; [facility] Other Interventions: Discharge Summary Assessment (RN) Last Done: 02/19/20 10:38 Supervising Physician Co-Signing Physician Notes Resident Physician Supervision Note: I independently interviewed and examined the patient and verified the myers history and physical, reviewed labs and image studies, discussed the case with the resident Dr. Izaguirre and agree with the findings and care plan. Resident Activity Tracking Resident Involvement: Resident Care Provided Care Provided: Adult Hospital Medicine
[2020-02-19 08:10] LABS: Basophils # (auto) 0.12 K/uL (0-0.2); Eosinophils # (auto) 0.35 K/uL (0-0.5); Eosinophils % (auto) 2.9 %; Hematocrit (blood only) 29.3 % (37-47); Hemoglobin 9.4 g/dL (12.0-16.0); Immature Granulocytes # (auto) 0.04 K/uL (0.00-0.02); Immature Granulocytes % (auto) 0.3 %; Lymphocytes % (auto) 40.7 %; Mean Corpuscular Hemoglobin 28.8 pg (25-34); Mean Corpuscular Hgb Conc 32.1 g/dL (32-36); Mean Corpuscular Volume 89.9 fL (80-100); Mean Platelet Volume 9.4 fL (7.4-10.4); Monocytes # (auto) 0.91 K/uL (0.11-0.59); Monocytes % (auto) 7.6 %; Neutrophils # (auto) 5.71 K/uL (1.4-6.5); Neutrophils % (auto) 47.5 %; Nucleated RBC # (auto) 0.47 K/uL (0-0); Nucleated RBC % (auto) 3.9 %; Platelet Count 563 K/uL (130-400); RDW Coefficient of Variation 14.5 % (11.5-14.5); RDW Standard Deviation 46.9 fL (36.4-46.3); Red Blood Count 3.26 M/uL (4.2-5.4); White Blood Count 12.03 K/uL (4.8-10.8)
[2020-02-19] MEDS: OXYCODONE HCL IR 5 MG TAB (IMMEDIATE RELEASE) PO PRN ×2 (08:36→15:08)
[2020-02-19] MEDS: DOCUSATE SODIUM 100 MG CAP PO SCH (08:38)
[2020-02-19] MEDS: MONTELUKAST SODIUM 10 MG TABLET PO SCH (08:38)
[2020-02-19] MEDS: levETIRAcetam 250 MG TAB PO SCH (08:39)
[2020-02-19] MEDS: MULTIVITAMIN TAB PO SCH (08:39)
[2020-02-19] MEDS: VALSARTAN 80 MG TAB PO SCH (08:39)
[2020-02-19] MEDS: ASPIRIN 325 MG ECTAB PO SCH (08:39)
[2020-02-19] MEDS: INSULIN GLARGINE SOLOSTAR 100 UNITS/ML 3 ML PEN SC SCH (08:40)
[2020-02-19] MEDS: INSULIN ASPART 100 UNITS/ML 3 ML PEN SC SCH ×2 (08:40→12:18)
[2020-02-19 08:43] LABS: Spherocytes 1+
[2020-02-19] MEDS ORDERED: rifAMPin 300 MG CAPSULE PO SCH (09:00)
--- NOTE | 2020-02-19 10:08 | Orthopedic Progress Note ---
Date of Service February 19, 2020 Assessment & Plan (1) History of total hip arthroplasty: POD #5 I&D left DERIK, head and liner exchange Continue IV Vanco and oral rifampin, HH on board to begin tomorrow, PICC in place. Pain control DVT proph- ASA D/C today after 2nd vanco dose. Admission and Anticipated Discharge Date Admission Date: February 10, 2020 Subjective POD #5 Doing well, tolerating Vancomycin well. Denies SOB, CP, N/V. Pain controlled well. Physical Exam Physical Exam: Left hip dressings in tact, changed yesterday. Toes/ ankle mobile. No calf tenderness. PICC in place. A&OX3. Results & Data ([facility]) Vital Signs (Past 12 Hours) Vital Signs Temp Pulse Pulse Resp BP Pulse Ox 02/19/20 07:38 36.7 C 75 18 153/67 H 97 02/19/20 07:25 77 02/19/20 04:21 36.6 C 74 20 133/58 L 93 02/18/20 23:33 36.9 C 72 18 152/72 H 95 02/18/20 23:15 73
[2020-02-19] MEDS ORDERED: FERROUS GLUCONATE 324 MG TAB PO SCH (11:30)
[2020-02-19 11:42] VITALS: O2SAT 95
[2020-02-19 15:13] VITALS: BP 129/65; PULSE 80; TEMP 98.6
== END 2020-02-19 17:20 | disposition home health service (06) | DRG 467 ==
LOC: ED 16:17 → SUATTDRO 22:32 → 2N 22:32
PROC: M.IDHIP (2020-02-14 07:00)